=== PATIENT | female | born 1940 | race Caucasian/White ===

== ENCOUNTER 2021-06-06 09:21 | Emergency (ER) | payer OTHER, SELFPAY ==
[2021-06-06 09:32] VITALS: BP 180/64; PULSE 72; RESP 18; TEMP 36.1; O2SAT 97
--- NOTE | 2021-06-06 09:53 | ED.GENADULT ---
HPI - General Adult General Stated complaint: Left side Pain Source: patient Mode of arrival: ambulatory Limitations: no limitations History of Present Illness HPI narrative: Patient is an 81-year-old female presents to the [facility] via POV for evaluation of right-sided pain that began yesterday upon awakening. Patient reports feeling in intermittent achy pain in her right arm, right hip, right thigh, and right knee. Denies taking OTC meds for symptoms. Nothing improves or worsen symptoms. Related Data Allergies Allergy/AdvReac Type Severity Reaction Status Date / Time Penicillins Allergy Unknown RED RASH Unverified 06/06/21 09:58 Review of Systems Review of Systems: Pertinent negatives: Injury, fever, chills, sweats, change in appetite, poor p.o. intake, malaise, calf tenderness, skin color changes, rash, warmth, swelling, numbness, tingling, loss of sensation, deformity, decreased range of motion, weakness, difficulty with ambulation/coordination, nausea, vomiting, lymphadenopathy, shortness of breath, chest pain, heart palpitations, and heart murmur. [facility] Past Medical History Medical History (Updated 06/06/21 @ 10:02 by Aniya Coleman, ROTARY DRYER OPERATOR, ) Hypertension Comments I have reviewed and agree with the patient's past medical, surgical, social, and family hx as documented by the RN. There is no relevant family history pertinent to the presenting complaint. Exam Narrative: GENERAL: Well-appearing, well-nourished, and in no acute distress. HEAD: Normocephalic, atraumatic. NECK: Supple. No Lymphadenopathy or nuchal rigidity appreciated. CHEST: Bilateral lung ulrich are clear to auscultation. No respiratory distress. No evidence of cough or pleuritic cp upon examination. HEART: Regular rate and rhythm. No murmur, gallop, or rub heard. EXTREMITIES: Mild pain elicited to palpation and with all active/past ROM of right hip, lateral aspect of right thigh, and lateral aspect of right knee. No evidence of injury, decreased ROM, swelling, cyanosis, hematoma, laceration, abrasion, deformity, rash, or puncture. No evidence of dislocation, ligament laxity, effusion, or pain at rest. Pulses palpable at 2+, strength 5/5, and cap refill < 3 seconds in affected extremity. DTRs normal. Gait normal. SKIN: Warm, dry, no rash. NEURO: No focal deficits. Alert and oriented x3. SPECIAL OBSERVATIONS: Smiling. Laughing. Course Vital Signs Vital signs: Vital Signs Temperature 96.9 F L 06/06/21 09:32 Pulse Rate 72 06/06/21 09:32 Respiratory Rate 18 06/06/21 09:32 Blood Pressure 180/64 H 06/06/21 09:32 Pulse Oximetry 97 06/06/21 09:32 Temperature 96.9 F L 06/06/21 09:32 Pulse Rate 72 06/06/21 09:32 Respiratory Rate 18 06/06/21 09:32 Blood Pressure 180/64 H 06/06/21 09:32 Pulse Oximetry 97 06/06/21 09:32 Due to an elevated blood pressure, I had a detailed discussion with the patient and/or guardian regarding the need for follow-up with their primary care provider within the next 3-4 days. Patient verbalized understanding and agreed. Medical Decision Making Differential Diagnosis Differential Diagnosis: Sprain, strain, cellulitis, open fracture, closed fracture, gout, osteoarthritis, RA, psoriatic arthritis Medical Records Medical records reviewed: Yes I reviewed the external patient's medical records. Vital Signs Vital Signs: Vital Signs Temperature 96.9 F L 06/06/21 09:32 Pulse Rate 72 06/06/21 09:32 Respiratory Rate 18 06/06/21 09:32 Blood Pressure 180/64 H 06/06/21 09:32 Pulse Oximetry 97 06/06/21 09:32 Temperature 96.9 F L 06/06/21 09:32 Pulse Rate 72 06/06/21 09:32 Respiratory Rate 18 06/06/21 09:32 Blood Pressure 180/64 H 06/06/21 09:32 Pulse Oximetry 97 06/06/21 09:32 Critical Care Time Critical Care Time Critical Care Time: No Discharge Plan Discharge Clinical Impression: Musculoskeletal pain Patient Disposition: Home, Self-Care Condit
== END 2021-06-06 10:05 | disposition home or self-care (01) ==
PROVIDERS: Emergency Provider Nurse Practitioner Family; PCP Internal Medicine
DX: M25.551 Pain in right hip (principal); M79.651 Pain in right thigh; M25.561 Pain in right knee; I10 Essential (primary) hypertension
CPT/HCPCS: 99211; G0463

== ENCOUNTER 2022-05-12 16:22 | Emergency (ER) | payer OTHER, SELFPAY ==
--- NOTE | ~2022-05-12 | CT_ITS ---
EXAMINATION: CT brain wo con INDICATION: Head injury COMPARISON: None TECHNIQUE: Standard unenhanced head CT. The dose-length product (DLP) was 605.33 mGy-cm. The mA was a djusted according to patient size. Iterative reconstruction technique was employed. FINDINGS: There is a moderate to large size left parieto-occipital scalp hematoma. There is no acute intraparenchymal hemorrhage. No evidence of mass lesion. No evidence of acute infarction. There is mi ld periventricular and subcortical hypodensity probably related to small vessel ischemic disease. The re is mild prominence of the sulci and ventricles related to cerebral atrophy. Intracranial calcified cerebral atherosclerosis is noted. There are no extra-axial collections. There is no mass effect or midline shift. The orbits and soft tissues are unremarkable. There is mild mucosal thickening of the paranasal sinuses. IMPRESSION: 1. Moderate to large sized left parietal occipital scalp hematoma without acute intracranial abnormal ity. 2. Age related findings. Reviewed, dictated and finalized at location A. IMPRESSION: 1. Moderate to large sized left parietal occipital scalp hematoma without acute intracranial abnormality. 2. Age related findings.
--- NOTE | ~2022-05-12 | XR_ITS ---
EXAMINATION: XR chest 2V DATE: 05/12/2022 17:22 INDICATION: Fall TECHNIQUE: PA and lateral views of the chest were obtained. COMPARISON: Chest radiograph dated 04/29/2007 FINDINGS: Mild elevation the left hemidiaphragm. Calcified nodules at the right lung base and calcified right h ilar lymph nodes consistent with old granulomatous disease. No other airspace opacities, pulmonary ed daniel, pleural effusion or pneumothorax. The cardiomediastinal silhouette is normal. Mild to moderate t horacic and moderate to severe lumbar spondylosis. IMPRESSION: 1. Mild elevation of the left hemidiaphragm. No acute cardiopulmonary disease. Reviewed, dictated and finalized at location A.
[2022-05-12 16:25] VITALS: BP 170/82; PULSE 90; RESP 33; O2SAT 96
--- NOTE | 2022-05-12 17:06 | ECG_ITS ---
Measurements Intervals [place] Rate: 74 P: 0 VA: 127 QRS: -5 QRSD: 89 T: 111 QT: 387 QTc: 430 Interpretive Statements SINUS RHYTHM FREQUENT ATRIAL PREMATURE COMPLEXES DELAYED PRECORDIAL R/S TRANSITION BORDERLINE ST-T WAVE ABNORMALITY- HIGH LATERAL LEADS BASELINE ARTIFACT- I, II, III, AVR, AVL ABNORMAL ECG NO PREVIOUS ECG AVAILABLE FOR COMPARISON Electronically Signed On 05-12-2022 21:51:30 CDT by Kishor Walker D.O.
--- NOTE | 2022-05-12 17:16 | ED.FALL ---
HPI - Fall General Chief Complaint: Fall Stated Complaint: fall Time Seen by Provider: 05/12/22 16:25 Source: patient, family and RN notes reviewed Mode of arrival: EMS Limitations: dementia History of Present Illness HPI Narrative: This is an 81 year old female who presents for evaluation of a head injury. Patient lives in a care facility . She is unsure why she fell. She states staff showed up right after her fall. She denies having dizziness, chest pain, palpitations or shortness of breath to cause her fall. Nursing staff thinks patient slipped her her slipped. She has posterior scalp laceration and her only complaint of pain at wound site. Related Data Home Medications Medication Instructions Recorded Confirmed dapagliflozin 10 mg tablet 10 mg PO DAILY 05/12/22 (Farxiga) furosemide 20 mg tablet (Lasix) 20 mg PO DAILY 05/12/22 glipizide 2.5 mg tablet, extended 2.5 mg PO DAILY 05/12/22 release 24 hr lisinopril 10 mg tablet 10 mg PO DAILY 05/12/22 losartan 50 mg tablet 50 mg PO DAILY 05/12/22 oxymetazoline 0.05 % nasal drops drp intranasal 05/12/22 sodium chloride 0.65 % nasal spray 3 spray intranasal ONCE PRN 05/12/22 aerosol (Deep Sea Nasal) Bleeding Allergies Allergy/AdvReac Type Severity Reaction Status Date / Time Penicillins Allergy Unknown RED RASH Verified 05/12/22 16:52 Review of Systems Review of Systems: All systems reviewed & are unremarkable except as noted in HPI and below Constitutional: Constitutional: Denies chills, Denies fatigue and Denies fever(s) ENT: Denies epistaxis and Denies nasal congestion Cardiovascular: Cardiovascular: Denies chest pain Respiratory: Respiratory: Denies chest congestion and Denies cough Gastrointestinal: Gastrointestinal: Denies abdominal pain, Denies nausea and Denies vomiting Neurologic: Reports headache(s) PMFSH Past Medical History Medical History (Updated 05/12/22 @ 18:49 by Taylor Peña MD) Hypertension Exam Const: General: no acute distress and alert Nutritional Appearance: well nourished Orientation/consciousness: patient oriented x3 HENMT: Head: laceration (left posterior scalp linear 2 cm) Ears: external ears normal Face and sinus: normal facial exam Teeth and gingiva: dentition normal Throat: posterior oropharynx normal Eyes: Pupils: Equal, round and reactive pupils present EOM: EOMs intact bilaterally Neck: Neck: normal visual inspection Chest: Chest palpation & inspection: normal inspection of the chest Resp: Effort & Inspection: normal respiratory effort Auscultation: clear to auscultation bilaterally Cardio: Rate: regular rate Rhythm: regular rhythm Heart sounds: no murmurs GI: GI Palp: Yes Soft to palpation, No Tenderness to palpation present (GI), No Guarding due to palpation present (GI) and No Rigid due to palpation Auscultation: normal bowel sounds Skin: General skin exam: normal color Rashes: no rashes Wounds: wounds noted (scalp laceration) Neuro: General: patient oriented x3, moves all extremities and CN's II-XI intact bilaterally Extrem: General: normal to inspection Psych: Mental Status: mental status grossly normal Affect: normal affect Attitude: cooperative Course Reevaluation(s) Reevaluation #1: Patient has no complaints. I repaired her scalp laceration. Family is at bedside. Date: 05/12/22 Time: 18:47 Vital Signs Vital signs: Vital Signs Pulse Rate 90 05/12/22 16:25 Respiratory Rate 33 H 05/12/22 16:25 Blood Pressure 170/82 H 05/12/22 16:25 Pulse Oximetry 96 05/12/22 16:25 Oxygen Delivery Room Air 05/12/22 16:25 Pulse Rate 85 05/12/22 19:20 Respiratory Rate 16 05/12/22 19:20 Blood Pressure 106/57 L 05/12/22 19:20 Pulse Oximetry 96 05/12/22 19:20 Oxygen Delivery Room Air 05/12/22 16:25 Procedures Laceration Laceration 1: Date: 05/12/22 Time: 18:47 Site: scalp Size (cm): 3 Description: line
[2022-05-12 17:48] LABS: Basophils Absolute Auto 0.1 K/mm3 (0.0-0.1); Basophils Percent Auto 0.6 % (0.2-1.2); Eosinophils Absolute Auto 0.2 K/mm3 (0-0.3); Hematocrit 45.3 % (37.0-47.0); Hemoglobin 14.8 g/dL (12.0-15.0); Immature Granulocyte Absolute 0.03 K/mm3 (0.00-0.031); Immature Granulocyte Percent A 0.4 % (0-0.5); Lymphocytes Absolute Auto 1.57 K/mm3 (0.9-3.2); Lymphocytes Percent Auto 18.6 % (18.3-44.2); Mean Corpuscular HGB Conc 32.7 g/dl (32-36); Mean Corpuscular Hemoglobin 32.7 pg (26-34); Mean Platelet Volume 10.2 fl (7.4-10.4); Monocytes Absolute Auto 0.9 K/mm3 (0.1-0.6); Monocytes Percent Auto 10.3 % (2.6-8.5); Neutrophils Absolute Auto 5.8 K/mm3 (1.3-6.7); Neutrophils Percent Auto 68.1 % (45.5-73.1); Platelet Count Result 269 k/mm3 (150-375); Red Blood Count 4.53 M/mm3 (4.2-5.4); Red Cell Distribution Width 12.4 % (11.5-14.5); White Blood Count 8.5 K/mm3 (4.5-10.0)
[2022-05-12 17:58] LABS: Alanine Aminotransferase 48 U/L (6-35); Albumin Level 4.3 g/dL (3.5-5.1); Alkaline Phosphatase 141 U/L (38-126); Anion Gap 11 mmol/L (8-16); Aspartate Amino Transferase 50 U/L (14-36); Bilirubin,Total 0.6 mg/dL (0.2-1.3); Blood Urea Nitrogen 15 mg/dL (7-17); Calcium 9.6 mg/dL (8.4-10.2); Carbon Dioxide 28 mmol/L (22-30); Chloride 96 mmol/L (98-107); Estimated CRCL calculation 51 ml/min; Estimated Glomerular Filt Rate > 60; Glucose 371 mg/dL (65-110); Sodium 135 mmol/L (137-145)
[2022-05-12] MEDS: LIDO 2%/EPINEPHRINE 1:100,000 20 ML VIAL (19:02)
[2022-05-12 19:20] VITALS: BP 106/57; PULSE 85; RESP 16; O2SAT 96
== END 2022-05-12 19:25 ==
PROVIDERS: Emergency Provider General Practice; PCP Internal Medicine
DX: S01.01XA Laceration without foreign body of scalp, initial encounter (principal); I10 Essential (primary) hypertension; E11.9 Type 2 diabetes mellitus without complications; Z79.84 Long term (current) use of oral hypoglycemic drugs; I49.1 Atrial premature depolarization; R94.31 Abnormal electrocardiogram [ECG] [EKG]; W01.0XXA Fall on same level from slipping, tripping and stumbling without subsequent striking against object, initial encounter
CPT/HCPCS: 12002; 36415; 70450; 71046; 80053; 85025; 93005; 99284

== ENCOUNTER 2023-09-09 11:15 | Emergency (ER) | payer OTHER, SELFPAY ==
[2023-09-09] VITALS (7 sets, daily range): BP systolic 109–119; BP diastolic 42–84; PULSE 61–80; RESP 18; TEMP 36.4; O2SAT 98–100
--- NOTE | ~2023-09-09 | CT_ITS ---
EXAMINATION: CT brain wo con DATE: 09/09/2023 11:57 INDICATION: Head injury. TECHNIQUE: Computed tomography (CT) of the head was performed without intravenous contrast. The dose- length product was 756.67 mGy-cm. Automated exposure control and iterative reconstruction technique w ere employed. COMPARISON: CT dated 05/12/2022 FINDINGS: Mild generalized atrophy. There are scattered mild periventricular and subcortical white ma tter changes, most likely related to small vessel ischemic disease (microangiopathy). There is intrac ranial atherosclerosis. No ventriculomegaly or midline shift. Basilar cisterns are patent. Paranasal sinuses and mastoids are pneumatized. There is mild right posterior parietal scalp hematoma. IMPRESSION: 1. No acute intracranial abnormality. Reviewed, dictated and finalized at location L. F NUCLEAR WEAPONS OFFICER
--- NOTE | 2023-09-09 11:21 | ECG_ITS ---
Measurements Intervals [place] Rate: 67 P: 9 ID: [id number] QRS: 55 QRSD: 97 T: -25 QT: 372 QTc: 393 Interpretive Statements SINUS RHYTHM WITH SINUS ARRHYTHMIA ST-T WAVE ABNORMALITY IN INFERIOR LEADS- CONSIDER ISCHEMIA BASELINE ARTIFACT- I, II, III, AVR, AVL, AVF ABNORMAL ECG COMPARED TO ECG 05/12/2022 17:36:[address] PRES[address] (T WAVE) DEVIATION NOW PRESENT Electronically Signed On 09-09-2023 11:36:10 CONSUMER BANKER by Kishor Walker D.O.
[2023-09-09 12:10] LABS: Glucose Point of Care 140 mg/dl (65-105)
[2023-09-09 12:25] LABS: Appearance Urine Clear (Clear); Bilirubin Urine Negative (Negative); Blood Urine Negative (Negative); Color Urine Yellow (Yellow); Glucose Urine UA 3+ mg/dL (Negative); Ketones Urine Negative (Negative); Leukocyte Esterase Ur Negative LEU/UL (Negative); Nitrate Urine Negative (Negative); Protein Urine Negative (Negative); Specific Grav Ur 1.022 (1.001-1.035); Urobilinogen Urine 0.2 mg/dL (<2.0)
[2023-09-09 12:26] LABS: Add Urine Microscopic? NO
[2023-09-09 12:38] LABS: Basophils Absolute Auto 0.1 K/mm3 (0.0-0.1); Basophils Percent Auto 0.5 % (0.2-1.2); Eosinophils Absolute Auto 0.3 K/mm3 (0-0.3); Eosinophils Percent Auto 2.8 % (0-4.4); Hematocrit 33.5 % (37.0-47.0); Immature Granulocyte Absolute 0.03 K/mm3 (0.00-0.031); Immature Granulocyte Percent A 0.3 % (0-0.5); Lymphocytes Absolute Auto 1.44 K/mm3 (0.9-3.2); Lymphocytes Percent Auto 13.8 % (18.3-44.2); Mean Corpuscular HGB Conc 29.9 g/dl (32-36); Mean Corpuscular Hemoglobin 30.6 pg (26-34); Mean Corpuscular Volume 102.4 fl (80-100); Mean Platelet Volume 9.2 fl (7.4-10.4); Monocytes Percent Auto 9.1 % (2.6-8.5); Neutrophils Absolute Auto 7.7 K/mm3 (1.3-6.7); Neutrophils Percent Auto 73.5 % (45.5-73.1); Platelet Count Result 378 k/mm3 (150-375); Red Blood Count 3.27 M/mm3 (4.2-5.4); Red Cell Distribution Width 14.5 % (11.5-14.5); White Blood Count 10.4 K/mm3 (4.5-10.0)
[2023-09-09 12:56] LABS: Alanine Aminotransferase 20 U/L (6-35); Albumin Level 3.9 g/dL (3.5-5.1); Alkaline Phosphatase 98 U/L (38-126); Anion Gap 8 mmol/L (8-16); Aspartate Amino Transferase 29 U/L (14-36); Bilirubin,Total 0.5 mg/dL (0.2-1.3); Blood Urea Nitrogen 18 mg/dL (7-17); Calcium 9.1 mg/dL (8.4-10.2); Carbon Dioxide 26 mmol/L (22-30); Chloride 105 mmol/L (98-107); Estimated Glomerular Filt Rate > 60; Glucose 129 mg/dL (65-110); Potassium 4.4 mmol/L (3.4-5.0); Sodium 139 mmol/L (137-145)
[2023-09-09 13:10] LABS: Platelet Estimate Adequate (Adequate); Schistocytes None Seen (NORMAL)
--- NOTE | 2023-09-09 13:32 | ED.FALL ---
HPI - Fall General Chief Complaint: Fall Stated Complaint: glf Time Seen by Provider: 09/09/23 11:18 Patient is an 83-year-old female who presents ER with multiple falls over last few days. Last fall was today and she did hit her head on left side posterior to the ear. She is unsure if she has had loss of consciousness. She is not on any blood thinners. She does take Lasix. She denies feeling any dizziness. No runny nose or sore throat or productive cough. No diarrhea or black stools. She denies any urinary symptoms. Patient is a post walk with a walker. Falls typically occur at night. She has neuropathy in her legs which has worsened makes her more unsteady. Related Data Home Medications Medication Instructions Recorded Confirmed dapagliflozin propanediol 10 mg 10 mg PO DAILY 05/12/22 tablet (Farxiga) furosemide 20 mg tablet (Lasix) 20 mg PO DAILY 05/12/22 glipizide 2.5 mg tablet, extended 2.5 mg PO DAILY 05/12/22 release 24 hr lisinopril 10 mg tablet 10 mg PO DAILY 05/12/22 losartan 50 mg tablet 50 mg PO DAILY 05/12/22 oxymetazoline 0.05 % nasal drops drp intranasal 05/12/22 sodium chloride 0.65 % nasal spray 3 spray intranasal ONCE PRN 05/12/22 aerosol (Deep Sea Nasal) Bleeding Allergies Allergy/AdvReac Type Severity Reaction Status Date / Time Penicillins Allergy Unknown RED RASH Verified 05/12/22 16:52 Review of Systems Review of Systems: All systems reviewed & are unremarkable except as noted in HPI and below Constitutional: Constitutional: Reports no additional constitutional complaints ENT: Reports system reviewed and no additional complaints, except as documented Cardiovascular: Cardiovascular: Reports no additional cardiovascular complaints Respiratory: Respiratory: Reports no additional respiratory complaints Genitourinary: Genitourinary: Reports no additional female genitourinary complaints Neurologic: Reports system reviewed and no additional complaints, except as documented PMFSH Past Medical History Medical History (Updated 09/09/23 @ 14:55 by Ja Lazaro MD) Hypertension Peripheral neuropathy Surgical History Surgical History (Updated 09/09/23 @ 13:37 by Ja Lazaro MD) History of tonsillectomy Exam Narrative: GENERAL: Well-appearing, well-nourished, and in no acute distress. HEAD: Normocephalic, atraumatic. mild bruising left posterior scalp posterior to the mastoid. ENT: Mucous membranes moist. CHEST: Clear to auscultation. No respiratory distress. HEART: Regular rate and rhythm. Normal peripheral pulses. ABDOMEN: Soft, nontender, nondistended. EXTREMITIES: Normal range of motion. +2 edema. SKIN: Warm, dry, no rash. NEURO: Alert and oriented x3. PSYCH: Normal mood and affect. Course Course Emergency Course: negative orthostatics but patient did report dizziness. Patient received half a L IV fluid. Informed of results. Discharge home. Vital Signs Vital signs: Vital Signs Temperature 97.6 F 09/09/23 11:18 Pulse Rate 70 09/09/23 11:18 Respiratory Rate 18 09/09/23 11:18 Blood Pressure 119/57 L 09/09/23 11:18 Pulse Oximetry 98 09/09/23 11:18 Oxygen Delivery Room Air 09/09/23 11:18 Temperature 97.6 F 09/09/23 11:18 Pulse Rate 80 09/09/23 15:14 Respiratory Rate 18 09/09/23 15:14 Blood Pressure 109/84 09/09/23 15:14 Pulse Oximetry 100 09/09/23 15:14 Oxygen Delivery Room Air 09/09/23 11:18 MDM - Fall Lab Data 09/09/23 12:33 09/09/23 12:33 Labs: Lab Results 09/09/23 09/09/23 09/09/23 Range/Units 12:07 12:12 12:33 WBC 10.4 H (4.5-10.0) K/mm3 RBC 3.27 L (4.2-5.4) M/mm3 Hgb 10.0 L D (12.0-15.0) g/dL Hct 33.5 L (37.0-47.0) % MCV 102.4 H (80-100) fl MCH 30.6 (26-34) pg MCHC 29.9 L (32-36) g/dl RDW 14.5 (11.5-14.5) % Plt Count 378 H (150-375) k/mm3 MPV 9.2 (7.4-10.4) fl Immature Gran % (Aut
[2023-09-09] MEDS: SODIUM CHLORIDE 0.9% IV 500 ML 999 ML IV CONT (14:07)
== END 2023-09-09 15:20 ==
PROVIDERS: Emergency Provider Emergency Medicine; PCP Internal Medicine
DX: S09.90XA Unspecified injury of head, initial encounter (principal); R29.6 Repeated falls; E11.42 Type 2 diabetes mellitus with diabetic polyneuropathy; I10 Essential (primary) hypertension; Z79.84 Long term (current) use of oral hypoglycemic drugs; R94.31 Abnormal electrocardiogram [ECG] [EKG]; W19.XXXA Unspecified fall, initial encounter
CPT/HCPCS: 36415; 70450; 80053; 81003; 82948; 85025; 93005; 96360; 99284; J7040

== ENCOUNTER 2023-10-08 20:32 | Observation (INO) | payer OTHER, SELFPAY ==
--- NOTE | ~2023-10-08 | XR_ITS ---
EXAMINATION: XR pelvis 1-2V DATE: 10/08/2023 21:20 INDICATION: Fall. TECHNIQUE: An anteroposterior view of the pelvis was obtained. COMPARISON: None. FINDINGS: There is lumbar dextrocurvature and moderate spondylosis. No fracture. There is moderate ri ght hip osteoarthritis and mild left hip osteoarthritis. IMPRESSION: 1. Moderate right hip osteoarthritis and mild left hip osteoarthritis. Reviewed, dictated and finalized at location E. GER MATH
--- NOTE | ~2023-10-08 | CT_ITS ---
EXAMINATION: CT brain wo con DATE: 10/08/2023 21:12 INDICATION: Fall. TECHNIQUE: Computed tomography (CT) of the head was performed without intravenous contrast. The mA wa s adjusted according to patient size. Iterative reconstruction technique was employed. The dose-lengt h product was 756.67 mGy-cm. COMPARISON: Head CT 09/09/2023 FINDINGS: There are scattered areas of low attenuation in the cerebral white matter, which is within normal limits for the patient's age. There is no intracranial hemorrhage, acute infarction, or abnorm al intracranial mass lesion. The ventricles are normal in size. There is mild mucosal thickening in t he paranasal sinuses. There are likely changes of ocular lens replacement surgeries. The mastoid air cells are normal. There is left anterolateral scalp soft tissue swelling. IMPRESSION: 1. Normal aging brain. Reviewed, dictated and finalized at location E. TABLE INSPECTOR IMPRESSION: 1. Normal aging brain.
--- NOTE | ~2023-10-08 | CT_ITS ---
EXAMINATION: CT facial & cervical spine wo DATE: 10/08/2023 21:12 INDICATION: Head injury. TECHNIQUE: Computed tomography (CT) of the maxillofacial region and cervical spine was performed with out intravenous contrast. Automated exposure control and iterative reconstruction technique were empl oyed. The dose-length product was 577.93 mGy-cm. COMPARISON: None FINDINGS: MAXILLOFACIAL CT: There is left frontal lateral scalp soft tissue swelling. There are likely changes of ocular lens rep lacement surgeries. There is mild mucosal thickening in the paranasal sinuses. There is leftward karmen ation of the nasal septum. No fracture. CERVICAL SPINE CT: There is 5 degrees dextrocurvature of cervical spine. There is 2 mm anterolisthesis of C7 on T1. Vert ebral body heights are normal. There is severely decreased disc height at C5-C6 and C6-C7. The follow ing disc levels are specifically discussed: C2-C3: There is no uncovertebral joint osteoarthritis. There is moderate bilateral facet joint osteoa rthritis. There is no neural foraminal stenosis. There is no central canal stenosis. C3-C4: There is moderate right and mild left uncovertebral joint osteoarthritis. There is severe bila teral facet joint osteoarthritis. There is mild bilateral neural foraminal stenosis. There is no cent ral canal stenosis. C4-C5: There is mild bilateral uncovertebral joint osteoarthritis. There is mild right and moderate l eft facet joint osteoarthritis. There is no neural foraminal stenosis. There is mild central canal st enosis. C5-C6: There is moderate right and severe left uncovertebral joint osteoarthritis. There is mild righ t and moderate left facet joint osteoarthritis. There is mild right and moderate left neural foramina l stenosis. There is mild central canal stenosis. C6-C7: There is severe bilateral uncovertebral joint osteoarthritis. There is moderate right and radha re left facet joint osteoarthritis. There is moderate right and mild left neural foraminal stenosis. There is mild central canal stenosis. C7-T1: There is no uncovertebral joint osteoarthritis. There is severe bilateral facet joint osteoart hritis. There is mild bilateral neural foraminal stenosis. There is no central canal stenosis. IMPRESSION: 1. No fracture. 2. Severe cervical spondylosis. Reviewed, dictated and finalized at location E. CTOR OF WORKFORCE DEVELOPMENT
--- NOTE | ~2023-10-08 | XR_ITS ---
EXAMINATION: XR chest 1V DATE: 10/08/2023 21:20 INDICATION: Fall. TECHNIQUE: A single frontal view of the chest was obtained. COMPARISON: Chest 2 views 05/12/2022 FINDINGS: There is a diffuse interstitial pattern, consistent mild pulmonary edema. Calcified right l zuly nodules and calcified right hilar lymph nodes are consistent with old granulomatous disease. No p leural effusion or pneumothorax. The heart size is normal. IMPRESSION: 1. Mild pulmonary edema. Reviewed, dictated and finalized at location E. CAR REPAIR CARMAN IMPRESSION: 1. Mild pulmonary edema.
[2023-10-08 20:32] VITALS: BP 139/72; PULSE 75; RESP 23; O2SAT 97
--- NOTE | 2023-10-08 20:39 | ECG_ITS ---
Measurements Intervals [place] Rate: 66 P: 46 SC: 147 QRS: 15 QRSD: 92 T: 102 QT: 417 QTc: 438 Interpretive Statements SINUS RHYTHM WITH OCCASIONAL VENTRICULAR PREMATURE COMPLEXES NONSPECIFIC ST ABNORMALITY BORDERLINE ECG COMPARED TO ECG 09/09/2023 11:33:25 NO SIGNIFICANT CHANGES Electronically Signed On 10-09-2023 14:38:33 STEEL MELTER by Davy Storey M.D.
[2023-10-08] MEDS: ACETAMINOPHEN 500 MG TABLET 1000 MG PO (21:52)
[2023-10-08 22:01] LABS: Glucose Point of Care 135 mg/dl (65-105)
[2023-10-08 22:12] LABS: Basophils Percent Auto 0.2 % (0.2-1.2); Eosinophils Absolute Auto 0.1 K/mm3 (0-0.3); Eosinophils Percent Auto 0.7 % (0-4.4); Hematocrit 35.2 % (37.0-47.0); Hemoglobin 10.6 g/dL (12.0-15.0); Immature Granulocyte Absolute 0.04 K/mm3 (0.00-0.031); Immature Granulocyte Percent A 0.3 % (0-0.5); Lymphocytes Absolute Auto 0.93 K/mm3 (0.9-3.2); Lymphocytes Percent Auto 7.1 % (18.3-44.2); Mean Corpuscular HGB Conc 30.1 g/dl (32-36); Mean Corpuscular Hemoglobin 28.6 pg (26-34); Mean Corpuscular Volume 95.1 fl (80-100); Mean Platelet Volume 9.4 fl (7.4-10.4); Monocytes Absolute Auto 1.4 K/mm3 (0.1-0.6); Monocytes Percent Auto 10.6 % (2.6-8.5); Neutrophils Absolute Auto 10.6 K/mm3 (1.3-6.7); Neutrophils Percent Auto 81.1 % (45.5-73.1); Platelet Count Result 385 k/mm3 (150-375); Red Cell Distribution Width 14.8 % (11.5-14.5); White Blood Count 13.1 K/mm3 (4.5-10.0)
[2023-10-08 22:18] LABS: Appearance Urine Clear (Clear); Bilirubin Urine Negative (Negative); Blood Urine Negative (Negative); Color Urine Yellow (Yellow); Glucose Urine UA 3+ mg/dL (Negative); INR 1.1; Ketones Urine Negative (Negative); Leukocyte Esterase Ur Negative LEU/UL (Negative); Nitrate Urine Negative (Negative); Protein Urine Negative (Negative); Urobilinogen Urine 0.2 mg/dL (<2.0); pH Urine 5.5 (5.0-9.0)
[2023-10-08 22:19] LABS: Partial Thromboplastin Time 34.5 SECONDS (22.3-36.8)
[2023-10-08 22:20] LABS: Alanine Aminotransferase 21 U/L (6-35); Albumin Level 3.9 g/dL (3.5-5.1); Alkaline Phosphatase 112 U/L (38-126); Anion Gap 6 mmol/L (8-16); Aspartate Amino Transferase 31 U/L (14-36); Bilirubin,Total 0.8 mg/dL (0.2-1.3); Blood Urea Nitrogen 21 mg/dL (7-17); Calcium 9.4 mg/dL (8.4-10.2); Carbon Dioxide 27 mmol/L (22-30); Chloride 106 mmol/L (98-107); Estimated CRCL calculation 50 ml/min; Estimated Glomerular Filt Rate > 60; Glucose 126 mg/dL (65-110); Lipase 175 U/L (23-300); Magnesium 2.5 mg/dL (1.6-2.3); Potassium 4.2 mmol/L (3.4-5.0); Sodium 139 mmol/L (137-145)
[2023-10-08 22:21] VITALS: BP 134/61; PULSE 72; RESP 22; O2SAT 96
[2023-10-08] MEDS: FUROSEMIDE INJ 40 MG/4 ML VIAL IV PUSH (22:21)
[2023-10-08 22:27] LABS: NT Pro B Type Natriuretic Pept 444 pg/mL (19.9-100)
[2023-10-08 22:48] LABS: Influenza A QL RT-PCR Negative (Negative); Influenza B QL RT-PCR Negative (Negative); RSV RNA, RT-PCR Negative (Negative); SARS-CoV-2 RNA PCR Negative (Negative)
[2023-10-08 23:04] LABS: Add Urine Microscopic? NO
[2023-10-08 23:23] VITALS: PULSE 65; RESP 25
[2023-10-08 23:30] VITALS: BP 125/36; PULSE 68; RESP 24; O2SAT 98
[2023-10-08 23:36] VITALS: PULSE 63
[2023-10-09] VITALS (8 sets, daily range): BP systolic 84–137; BP diastolic 51–115; PULSE 54–77; RESP 16–24; TEMP 36.3–37; O2SAT 97–98; BMI 43.4
--- NOTE | 2023-10-09 | ECHO_ITS ---
Patient Info Name: Akosua Rocha Age: 83 years : 1940 Gender: Female Ht: 60 in Wt: 222 lbs BSA: 2.13 m2 HR: 82 bpm BP: 135 / 82 mmHg Heart Rhythm: Sinus Rhythm Technical Quality: Fair Exam Date: 10/09/2023 1:03 PM Exam Location: Echo Lab Exam Room: 342 Patient Status: Inpatient Admit Date: 10/09/2023 Staff Ordering Physician: Jana Alfonso APRN Wafer Fabrication Technician: Marisol Birmingham RDCS Attending Provider: Justine Carlisle MD Referring Physician: Kaden SUMMERS; Exam Type: CA echo dop color flow w con Study Info Indications - weakness s/p fall edema Complete two-dimensional, color flow and Doppler transthoracic echocardiogram is performed with contrast to opacify the left ventricle and to improve the deliniation of the left ventricle endocardial borders. Contrast/Agitated Saline Contrast/Ag. Saline: Definity Amount: 2.00 ml Administered By: Marisol Birmingham [facility] Existing IV Access: Yes IV Access Condition: patent with no signs of infiltration Summary 1. Left ventricular chamber dimension is normal. 2. Left ventricular systolic function is normal, estimated at 65-70%. 3. There is mildly increased left ventricular wall thickness. 4. The left ventricular diastolic function is grade I diastolic dysfunction. 5. Left atrial chamber dimension is mildly enlarged. 6. There is no aortic valve stenosis. 7. There is mild mitral valve regurgitation. 8. There is mild tricuspid valve regurgitation. 9. Moderate pulmonary hypertension, estimated pulmonary arterial systolic pressure is 46 mmHg. Left Ventricle Left ventricular chamber dimension is normal. Left ventricular systolic function is normal, estimated at 65-70%. There is mildly increased left ventricular wall thickness. The left ventricular diastolic function is grade I diastolic dysfunction. Right Ventricle Right ventricular chamber dimension is normal. Right ventricular systolic function is normal. Left Atria Left atrial chamber dimension is mildly enlarged. Right Atria Right atrial chamber dimension is normal. Aortic Valve The aortic valve is trileaflet. There is mild aortic valve sclerosis. There is no aortic valve stenosis. There is no aortic valve regurgitation. Pulmonic Valve The pulmonic valve is not well visualized. There is trace pulmonic regurgitation. Mitral Valve The mitral valve has thickened leaflets. There is mild mitral valve regurgitation. The mitral valve annulus is severely calcified. Tricuspid Valve The tricuspid valve leaflets are normal. There is mild tricuspid valve regurgitation. Moderate pulmonary hypertension, estimated pulmonary arterial systolic pressure is 46 mmHg. Pericardium/Pleural The pericardium appears normal. There is trivial pericardial effusion. Inferior Vena Cava Normal inferior vena cava with >50% collapse upon inspiration consistent with normal right atrial pressure, 5 mmHg. Aorta The aortic root size at the sinus of Valsalva is normal. There is mild aortic atherosclerosis. Left Ventricular Outflow Tract Name Value Normal LVOT 2D LVOT Diameter 1.98 cm LVOT Doppler LVOT Peak Gradient 6 mmHg L
--- NOTE | 2023-10-09 00:15 | ED.GENADULT ---
HPI - General Adult General Chief complaint: Fall Stated complaint: fall Time Seen by Provider: 10/08/23 20:48 History of Present Illness HPI narrative: Is an 83-year-old female presenting patient says that she out bed and landed on her face. No loss of consciousness. No is 1 thinners. Patient was too weak to get up. At this time the patient has no complaints outside of a skin tear on the right arm. The patient's daughter is at bedisde and states the patient is far weaker than usual. She is unable to walk without assistance. Also noted she is very swollen had increased weight gain. No history of heart failure. She is on Lasix Related Data Home Medications Medication Instructions Recorded Confirmed dapagliflozin propanediol 10 mg 10 mg PO DAILY 05/12/22 tablet (Farxiga) furosemide 20 mg tablet (Lasix) 20 mg PO DAILY 05/12/22 glipizide 2.5 mg tablet, extended 2.5 mg PO DAILY 05/12/22 release 24 hr lisinopril 10 mg tablet 10 mg PO DAILY 05/12/22 losartan 50 mg tablet 50 mg PO DAILY 05/12/22 oxymetazoline 0.05 % nasal drops drp intranasal 05/12/22 sodium chloride 0.65 % nasal spray 3 spray intranasal ONCE PRN 05/12/22 aerosol (Deep Sea Nasal) Bleeding Allergies Allergy/AdvReac Type Severity Reaction Status Date / Time Penicillins Allergy Unknown RED RASH Verified 10/08/23 20:39 [facility] Past Medical History Medical History Hypertension Peripheral neuropathy Surgical History Surgical History History of tonsillectomy Exam Narrative: APPEARANCE: No apparent distress. Head: atraumatic. EYES: EOMI, NOSE: Atraumatic NECK: Trachea midline RESPIRATORY: No increased rate of breathing, clear to auscultation CARDIOVASCULAR: RRR, lipodermatosclerosis With pitting edema proximal ABDOMINAL: obese, soft nontender edematous in panniculus MUSCULOSKELETAl: No obvious deformities NEURO: Alert. Moving 4/4 extremities SKIN:: Warm, dry. Normal color PSYCHIATRIC: Normal affect Course Vital Signs Vital signs: Vital Signs Pulse Rate 75 10/08/23 20:32 Respiratory Rate 23 H 10/08/23 20:32 Blood Pressure 139/72 10/08/23 20:32 Pulse Oximetry 97 10/08/23 20:32 Oxygen Delivery Room Air 10/08/23 20:32 Pulse Rate 63 10/08/23 23:36 Respiratory Rate 24 H 10/08/23 23:30 Blood Pressure 125/36 L 10/08/23 23:30 Pulse Oximetry 98 10/08/23 23:30 Oxygen Delivery Room Air 10/08/23 20:32 Medical Decision Making MDM Narrative Medical decision making narrative: -Course: 83-year-old female with a fall and weakness. Trauma workup was negative including CT head C-spine chest and pelvis. infectious workup was unremarkable. The patient does have edema of her legs hips and abdomen. Additionally she is unable ambulate weak at this time. Patient be admitted the hospital for PT/OT treat and eval and diuresis. -DDX includes but is not limited to: Sepsis UTI dehydration CHF fluid overload anasarca traumatic injury -Co-morbidities complicating care: hypertension, diabetes, fluid retention -Social determinants of health: lives in the assisted living -Hx from independent Sources: daughter bedside -Independent interpretation of studies: white count 13.1. Hemoglobin 10.6 metabolic panel normal. BNP normal. urine not indicative infection. Viral swabs negative chest pelvis and CT head cervical facial negative for traumatic injuries. Independent EKG interpretation: Rhythm [sinus], Rate [66], [place] -[normal], [place] -[normal], QRS [narrow], QTC [normal], T waves -[negative for concerning inversions], ST Segments - [Negative for concerning elevations] Final interpretations: [Normal Sinus Rhythm] -Discussion of Management/Consultants: Dr. Carlisle, -hospitalist -Interventions: Lasix 40 mg IV -Shared decision making / Disposition:Observation Vital Signs Vital Signs: Vital Signs
--- NOTE | 2023-10-09 02:12 | ADMGEN ---
This patient, Akosua Rocha, was admitted to Medical Room 342-01. Patient/family oriented to hospital policies and general routines including ID bracelet, bed and alarms, visiting hours, pain management, procedures, bathroom and other care routines, personal items, smoking policy, room service/diet, and visiting hours. Information on how to activate the Rapid Response Team has been discussed. Patient/Family are encouraged to report perceived risks to care and to ask questions if they do not understand what they are told or what they should do.
[2023-10-09 06:10] LABS: Glucose Point of Care 102 mg/dl (65-105)
--- NOTE | 2023-10-09 08:12 | PM.IMHP ---
H&P: HPI History of Present Illness Date/Time: 10/09/23 08:12 Chief Complaint: Fall Narrative: This is an 83-year-old female with a significant past medical history of depression, hyperlipidemia, hypertension, type 2 diabetes mellitus, peripheral neuropathy who presented to the ED with chief complaint of fall. Patient states that she was getting up out of the bed fell and landed on her face. She also stated that she was too weak to get up. She states that she has had 3 falls in the past year. She has not had any recent illnesses and has progressively gotten weaker over the years. She currently uses a walker at home at baseline. She denies any fever, chills, nausea, vomiting, diarrhea, abdominal pain, chest pain, shortness a breath, lightheadedness, dizziness, numbness, or tingling. She does have a black eye on the left from the fall, skin tear to the left forearm, and a skin tear to the left mcdonald with serous drainage. Workup in the hospital includes CT brain without contrast which was normal. Head/cervical spine/facial bone CT was negative for fracture, showed severe cervical spondylosis. Chest x-ray shows mild pulmonary edema. Pelvis x-ray shows moderate right hip osteoarthritis and mild left hip osteoarthritis. EKG showing sinus rhythm with occasional PVCs, rate 66, QTC 438. Initial labs revealed white blood count of 13.1, hemoglobin 10.6, hematocrit 35.2, platelet count 385, INR 1.1, magnesium 2.5, proBNP 444. UA was obtained which showed 3+ glucose. Respiratory panel was obtained and was negative for influenza a and B, RSV, COVID. Patient was given 40 mg IV push Lasix and some Tylenol while in the ED. On examination today patient is alert oriented x3, lying in the bed. She denies any new complaints overnight. Labs revealed a white blood cell count of 11.7, RBC 3.81, hemoglobin 11.0, hematocrit 36.6, platelet count 381, hemoglobin A1c 6.2, magnesium 2.4, liver enzymes are normal, kidney function is normal. Echo ordered for today. We will also hold her p.o. Lasix and give her 40 mg IV push Lasix daily considering her edema. Review of Systems Review of Systems: All systems reviewed & are unremarkable except as noted in HPI and below Constitutional: Constitutional: Reports as per HPI and Reports no additional constitutional complaints Eyes: Eyes: Reports as per HPI and Reports no additional eye complaints ENT: Reports system reviewed and no additional complaints, except as documented and Reports as per HPI Cardiovascular: Cardiovascular: Reports as per HPI and Reports no additional cardiovascular complaints Respiratory: Respiratory: Reports as per HPI and Reports no additional respiratory complaints Gastrointestinal: Gastrointestinal: Reports as per HPI and Reports no additional gastrointestinal complaints Genitourinary: Genitourinary: Reports no additional female genitourinary complaints and Reports as per HPI Musculoskeletal: Musculoskeletal: Reports no additional musculoskeletal complaints and Reports as per HPI Integumentary/Breasts: Skin/Breast: Reports system reviewed and no additional complaints, except as docu and Reports as per HPI Neurologic: Reports system reviewed and no additional complaints, except as documented and Reports as per HPI Psychiatric: Psychiatric: Reports no additional psychiatric complaints and Reports as per HPI [facility] Past Medical History Medical History Depression Hyperlipidemia Hypertension Peripheral neuropathy Type 2 diabetes mellitus Surgical History Surgical History History of tonsillectomy Family History Family History Other Cardiovascular disease Social History Social History Smoking status: Never smoker Alcohol intake: never Substance use: never D
[2023-10-09 08:27] LABS: Glucose Point of Care 81 mg/dl (65-105)
[2023-10-09 09:29] LABS: Basophils Percent Auto 0.3 % (0.2-1.2); Eosinophils Absolute Auto 0.1 K/mm3 (0-0.3); Eosinophils Percent Auto 0.9 % (0-4.4); Hematocrit 36.6 % (37.0-47.0); Immature Granulocyte Absolute 0.05 K/mm3 (0.00-0.031); Immature Granulocyte Percent A 0.4 % (0-0.5); Lymphocytes Percent Auto 8.5 % (18.3-44.2); Mean Corpuscular HGB Conc 30.1 g/dl (32-36); Mean Corpuscular Hemoglobin 28.9 pg (26-34); Mean Corpuscular Volume 96.1 fl (80-100); Mean Platelet Volume 9.4 fl (7.4-10.4); Monocytes Absolute Auto 1.2 K/mm3 (0.1-0.6); Monocytes Percent Auto 10.4 % (2.6-8.5); Neutrophils Absolute Auto 9.3 K/mm3 (1.3-6.7); Neutrophils Percent Auto 79.5 % (45.5-73.1); Platelet Count Result 381 k/mm3 (150-375); Red Blood Count 3.81 M/mm3 (4.2-5.4); Red Cell Distribution Width 14.8 % (11.5-14.5); White Blood Count 11.7 K/mm3 (4.5-10.0)
[2023-10-09] MEDS: DOCUSATE SODIUM 100 MG CAPSULE PO ×2 (09:52→17:09)
[2023-10-09] MEDS: ATORVASTATIN 10 MG TABLET PO (09:52)
[2023-10-09] MEDS: glipiZIDE XL 2.5 MG TAB.ER.24 PO (09:52)
[2023-10-09] MEDS: FLUoxetine HCL 20 MG CAPSULE PO (09:52)
[2023-10-09] MEDS: PANTOPRAZOLE 40 MG TABLET PO (09:52)
[2023-10-09] MEDS: LOSARTAN POTASSIUM 50 MG TABLET PO (09:52)
[2023-10-09] MEDS: ENOXAPARIN 40 MG/0.4 ML SYRINGE SUB-Q (09:52)
[2023-10-09] MEDS: amLODIPine BESYLATE 5 MG TABLET 10 MG PO (09:52)
[2023-10-09] MEDS: FUROSEMIDE 20 MG TABLET PO (09:52)
[2023-10-09 10:02] LABS: Alanine Aminotransferase 20 U/L (6-35); Albumin Level 3.9 g/dL (3.5-5.1); Alkaline Phosphatase 99 U/L (38-126); Anion Gap 8 mmol/L (8-16); Aspartate Amino Transferase 30 U/L (14-36); Blood Urea Nitrogen 20 mg/dL (7-17); Calcium 9.3 mg/dL (8.4-10.2); Carbon Dioxide 24 mmol/L (22-30); Chloride 105 mmol/L (98-107); Estimated CRCL calculation 55 ml/min; Estimated Glomerular Filt Rate > 60; Glucose 87 mg/dL (65-110); Magnesium 2.4 mg/dL (1.6-2.3); Potassium 4.1 mmol/L (3.4-5.0); Sodium 137 mmol/L (137-145)
[2023-10-09 10:42] LABS: Hemoglobin A1C 6.2 % (<5.7)
[2023-10-09 12:46] LABS: Glucose Point of Care 187 mg/dl (65-105)
[2023-10-09] MEDS: PERFLUTREN LIPID MICROSPHERES 1.5 ML VIAL DILUTED TO 10 ML TOTAL VOLUME IV PUSH (13:20)
--- NOTE | 2023-10-09 13:38 | IVDEFINITY ---
Prior to administration of IV Definity the patient was educated on the risks and benefits of the imaging enhancing agent including potential adverse side effects. The patient verbalized understanding. Allergies were verified. No exclusion criteria were identified and at least one of the following inclusion criteria were met: 1) physician request, 2) patient technically difficult to image (per the [place] [employer] guidelines of two or more segments not discernable within the apical view), or 3) questionable left ventricular function. ?
[2023-10-09 17:29] LABS: Glucose Point of Care 137 mg/dl (65-105)
[2023-10-09 23:07] LABS: Glucose Point of Care 169 mg/dl (65-105)
[2023-10-09] MEDS: traMADol HCL (*CRX) 25 MG TABLET PO (23:24)
[2023-10-10 06:00] VITALS: BP 133/62; PULSE 108; RESP 18; TEMP 36.6; O2SAT 97
[2023-10-10 06:07] LABS: Basophils Percent Auto 0.4 % (0.2-1.2); Eosinophils Absolute Auto 0.2 K/mm3 (0-0.3); Eosinophils Percent Auto 2.2 % (0-4.4); Hematocrit 33.2 % (37.0-47.0); Hemoglobin 9.9 g/dL (12.0-15.0); Immature Granulocyte Absolute 0.02 K/mm3 (0.00-0.031); Immature Granulocyte Percent A 0.2 % (0-0.5); Lymphocytes Absolute Auto 1.19 K/mm3 (0.9-3.2); Lymphocytes Percent Auto 11.3 % (18.3-44.2); Mean Corpuscular HGB Conc 29.8 g/dl (32-36); Mean Corpuscular Hemoglobin 28.3 pg (26-34); Mean Corpuscular Volume 94.9 fl (80-100); Mean Platelet Volume 9.5 fl (7.4-10.4); Monocytes Absolute Auto 1.5 K/mm3 (0.1-0.6); Neutrophils Absolute Auto 7.6 K/mm3 (1.3-6.7); Neutrophils Percent Auto 71.9 % (45.5-73.1); Platelet Count Result 369 k/mm3 (150-375); White Blood Count 10.5 K/mm3 (4.5-10.0)
[2023-10-10 06:30] LABS: Alanine Aminotransferase 18 U/L (6-35); Albumin Level 3.5 g/dL (3.5-5.1); Alkaline Phosphatase 93 U/L (38-126); Anion Gap 5 mmol/L (8-16); Aspartate Amino Transferase 30 U/L (14-36); Bilirubin,Total 0.8 mg/dL (0.2-1.3); Blood Urea Nitrogen 20 mg/dL (7-17); Calcium 9.1 mg/dL (8.4-10.2); Carbon Dioxide 28 mmol/L (22-30); Chloride 105 mmol/L (98-107); Estimated CRCL calculation 49 ml/min; Estimated Glomerular Filt Rate > 60; Glucose 107 mg/dL (65-110); Potassium 3.8 mmol/L (3.4-5.0); Sodium 138 mmol/L (137-145)
--- NOTE | 2023-10-10 07:19 | P.PNIM_ITS ---
Progress Note: A&P Assessment and Plan (1) Physical deconditioning: Code(s): R53.81 - Other malaise Status: Acute Assessment and Plan: 10/09/2023: * PT and OT ordered * Case coordination consulted for outpatient rehab needs 10/10/2023: * continue with plan of care (2) Fall: Code(s): W19.XXXA - Unspecified fall, initial encounter Status: Acute Assessment and Plan: 10/09/2023: * Status post ground level fall on 10/08/2023 when getting up out of the bed. Patient did hit her head and her face. Patient was sent home and was too weak to get up off of the floor. * Likely due to prolonged physical deconditioning and weakness * CT of the head showing a normal aging brain * Head/cervical spine/facial bone CT was negative for fracture, shown severe cervical spondylosis * Pelvis x-ray showed moderate right hip osteoarthritis and mild left hip oste oarthritis * PT and OT ordered * Continue fall precautions * Case coordination consulted for outpatient rehab needs * Tylenol and Ultram ordered for pain * Considerable amount of bilateral lower extremity edema from hips down, will hold p.o. Lasix and start IV Lasix 40 mg daily. * We will also check an echocardiogram today considering there is no echo to review in the EMR 10/10/2023: * switch Lasix back to p.o. and discontinued IV Lasix * continue current plan of care (3) Hypertension: Code(s): I10 - Essential (primary) hypertension Status: Chronic Assessment and Plan: 10/09/2023: * Blood pressure ranging 135/82 to 137/76 * Continue lisinopril, Lasix, and Cozaar * pro BNP 444 10/10/2023: * blood pressure well controlled * no change to current treatment plan (4) Type 2 diabetes mellitus: Code(s): E11.9 - Type 2 diabetes mellitus without complications Status: Chronic Assessment and Plan: 10/09/2023: * Blood sugars ranging 81-102 * Hemoglobin A1c ordered * AC/ HS Accu-Checks * Low-dose sliding scale insulin * Hold Farxiga 10 mg tab as it is non formulary * Hypoglycemic protocol ordered 10/10/2023: * blood sugars ranging 99-187 * continue with current treatment plan (5) Hyperlipidemia: Code(s): E78.5 - Hyperlipidemia, unspecified Status: Chronic Assessment and Plan: 10/09/2023: * Continue atorvastatin 10/10/2023: * continue with current treatment plan (6) Depression: Code(s): F32.A - Depression, unspecified Status: Chronic Assessment and Plan: 10/09/2023: * Continue Prozac 10/10/2023: * continue with current treatment plan Time Spent With Patient Time with patient: 25 - 35 minutes Subjective Date/time seen: 10/10/23 07:19 Interval history: 10/09/24: This is an 83-year-old female with a significant past medical history of depression, hyperlipidemia, hypertension, type 2 diabetes mellitus, peripheral neuropathy who presented to the ED with chief complaint of fall.? Patient states that she was getting up out of the bed fell and landed on her face.? She also stated that she was too weak to get up.? She states that she has had 3 falls in the past year.? She has not had any recent illnesses and has progressively gotten weaker over the years.? She currently uses a walker at home at baseline.? She denies any fever, chills, nausea, vomiting, diarrhea, abdominal pain, chest pain, shortness a breath, lightheadedness, dizziness, numbness, or tingling.? She does have a black eye on the left from the fall, skin tear to the left forearm, and a sk
--- NOTE | 2023-10-10 07:19 | PM.IMPN ---
Progress Note: A&P Assessment and Plan (1) Physical deconditioning: Code(s): R53.81 - Other malaise Status: Acute Assessment and Plan: 10/09/2023: PT and OT ordered Case coordination consulted for outpatient rehab needs 10/10/2023: continue with plan of care (2) Fall: Code(s): W19.XXXA - Unspecified fall, initial encounter Status: Acute Assessment and Plan: 10/09/2023: Status post ground level fall on 10/08/2023 when getting up out of the bed. Patient did hit her head and her face. Patient was sent home and was too weak to get up off of the floor. Likely due to prolonged physical deconditioning and weakness CT of the head showing a normal aging brain Head/cervical spine/facial bone CT was negative for fracture, shown severe cervical spondylosis Pelvis x-ray showed moderate right hip osteoarthritis and mild left hip osteoarthritis PT and OT ordered Continue fall precautions Case coordination consulted for outpatient rehab needs Tylenol and Ultram ordered for pain Considerable amount of bilateral lower extremity edema from hips down, will hold p.o. Lasix and start IV Lasix 40 mg daily. We will also check an echocardiogram today considering there is no echo to review in the EMR 10/10/2023: switch Lasix back to p.o. and discontinued IV Lasix continue current plan of care (3) Hypertension: Code(s): I10 - Essential (primary) hypertension Status: Chronic Assessment and Plan: 10/09/2023: Blood pressure ranging 135/82 to 137/76 Continue lisinopril, Lasix, and Cozaar pro BNP 444 10/10/2023: blood pressure well controlled no change to current treatment plan (4) Type 2 diabetes mellitus: Code(s): E11.9 - Type 2 diabetes mellitus without complications Status: Chronic Assessment and Plan: 10/09/2023: Blood sugars ranging 81-102 Hemoglobin A1c ordered AC/ HS Accu-Checks Low-dose sliding scale insulin Hold Farxiga 10 mg tab as it is non formulary Hypoglycemic protocol ordered 10/10/2023: blood sugars ranging 99-187 continue with current treatment plan (5) Hyperlipidemia: Code(s): E78.5 - Hyperlipidemia, unspecified Status: Chronic Assessment and Plan: 10/09/2023: Continue atorvastatin 10/10/2023: continue with current treatment plan (6) Depression: Code(s): F32.A - Depression, unspecified Status: Chronic Assessment and Plan: 10/09/2023: Continue Prozac 10/10/2023: continue with current treatment plan Time Spent With Patient Time with patient: 25 - 35 minutes Subjective Date/time seen: 10/10/23 07:19 Interval history: 10/09/24: This is an 83-year-old female with a significant past medical history of depression, hyperlipidemia, hypertension, type 2 diabetes mellitus, peripheral neuropathy who presented to the ED with chief complaint of fall.? Patient states that she was getting up out of the bed fell and landed on her face.? She also stated that she was too weak to get up.? She states that she has had 3 falls in the past year.? She has not had any recent illnesses and has progressively gotten weaker over the years.? She currently uses a walker at home at baseline.? She denies any fever, chills, nausea, vomiting, diarrhea, abdominal pain, chest pain, shortness a breath, lightheadedness, dizziness, numbness, or tingling.? She does have a black eye on the left from the fall, skin tear to the left forearm, and a skin tear to the left mcdonald with serous drainage.? Workup in the hospital includes CT brain without contrast which was normal.? Head/cervical spine/facial bone CT was negative for fracture, showed severe cervical spondylosis.? Chest x-ray shows mild pulmonary edema.? Pelvis x-ray shows moderate right hip osteoarthritis and mild left hip osteoarthritis.? EKG showing sinus rhythm with occasional PVCs, rate 66, QTC 438. Initial labs revealed white blood count of 13.
[2023-10-10 08:11] LABS: Glucose Point of Care 99 mg/dl (65-105)
[2023-10-10 09:40] VITALS: BP 131/62; PULSE 68
[2023-10-10] MEDS: ENOXAPARIN 40 MG/0.4 ML SYRINGE SUB-Q (09:43)
[2023-10-10] MEDS: PANTOPRAZOLE 40 MG TABLET PO (09:43)
[2023-10-10] MEDS: FUROSEMIDE 20 MG TABLET PO (09:43)
[2023-10-10] MEDS: LOSARTAN POTASSIUM 50 MG TABLET PO (09:43)
[2023-10-10] MEDS: ATORVASTATIN 10 MG TABLET PO (09:43)
[2023-10-10] MEDS: amLODIPine BESYLATE 5 MG TABLET 10 MG PO (09:43)
[2023-10-10] MEDS: FLUoxetine HCL 20 MG CAPSULE PO (09:43)
[2023-10-10] MEDS: DOCUSATE SODIUM 100 MG CAPSULE PO ×2 (09:43→17:09)
[2023-10-10] MEDS: glipiZIDE XL 2.5 MG TAB.ER.24 PO (09:43)
[2023-10-10 10:27] LABS: Hypochromasia 1+ (NORMAL); Platelet Estimate Adequate (Adequate); Schistocytes None Seen (NORMAL)
[2023-10-10 11:32] LABS: Glucose Point of Care 173 mg/dl (65-105)
[2023-10-10 13:59] VITALS: BP 130/68; PULSE 63; RESP 17; TEMP 36.9; O2SAT 99
[2023-10-10 16:58] LABS: Glucose Point of Care 154 mg/dl (65-105)
[2023-10-10 20:00] VITALS: PULSE 60; RESP 18; O2SAT 95
[2023-10-10 20:10] VITALS: BP 132/68; PULSE 60; RESP 18; TEMP 36.8; O2SAT 95
[2023-10-10 22:38] LABS: Glucose Point of Care 168 mg/dl (65-105)
[2023-10-11 03:59] VITALS: BP 137/54; PULSE 65; RESP 20; TEMP 36.4; O2SAT 95
[2023-10-11 05:32] LABS: Basophils Percent Auto 0.4 % (0.2-1.2); Eosinophils Absolute Auto 0.3 K/mm3 (0-0.3); Hematocrit 35.5 % (37.0-47.0); Hemoglobin 10.8 g/dL (12.0-15.0); Immature Granulocyte Absolute 0.03 K/mm3 (0.00-0.031); Immature Granulocyte Percent A 0.4 % (0-0.5); Lymphocytes Absolute Auto 1.17 K/mm3 (0.9-3.2); Lymphocytes Percent Auto 13.7 % (18.3-44.2); Mean Corpuscular HGB Conc 30.4 g/dl (32-36); Mean Corpuscular Volume 95.2 fl (80-100); Mean Platelet Volume 9.2 fl (7.4-10.4); Monocytes Absolute Auto 1.2 K/mm3 (0.1-0.6); Monocytes Percent Auto 14.2 % (2.6-8.5); Neutrophils Absolute Auto 5.8 K/mm3 (1.3-6.7); Neutrophils Percent Auto 68.3 % (45.5-73.1); Platelet Count Result 355 k/mm3 (150-375); Red Blood Count 3.73 M/mm3 (4.2-5.4); Red Cell Distribution Width 14.8 % (11.5-14.5); White Blood Count 8.5 K/mm3 (4.5-10.0)
[2023-10-11 05:48] LABS: Alanine Aminotransferase 19 U/L (6-35); Albumin Level 3.7 g/dL (3.5-5.1); Alkaline Phosphatase 99 U/L (38-126); Anion Gap 6 mmol/L (8-16); Aspartate Amino Transferase 26 U/L (14-36); Bilirubin,Total 0.9 mg/dL (0.2-1.3); Blood Urea Nitrogen 23 mg/dL (7-17); Calcium 9.1 mg/dL (8.4-10.2); Carbon Dioxide 27 mmol/L (22-30); Chloride 106 mmol/L (98-107); Estimated CRCL calculation 44 ml/min; Estimated Glomerular Filt Rate 60; Glucose 120 mg/dL (65-110); Potassium 3.8 mmol/L (3.4-5.0); Sodium 139 mmol/L (137-145)
[2023-10-11 08:35] LABS: Glucose Point of Care 130 mg/dl (65-105)
[2023-10-11] MEDS: FLUoxetine HCL 20 MG CAPSULE PO (09:05)
[2023-10-11] MEDS: amLODIPine BESYLATE 5 MG TABLET 10 MG PO (09:05)
[2023-10-11] MEDS: ATORVASTATIN 10 MG TABLET PO (09:06)
[2023-10-11] MEDS: FUROSEMIDE 20 MG TABLET PO (09:06)
[2023-10-11] MEDS: glipiZIDE XL 2.5 MG TAB.ER.24 PO (09:06)
[2023-10-11] MEDS: ENOXAPARIN 40 MG/0.4 ML SYRINGE SUB-Q (09:06)
[2023-10-11] MEDS: DOCUSATE SODIUM 100 MG CAPSULE PO ×2 (09:06→17:53)
[2023-10-11] MEDS: PANTOPRAZOLE 40 MG TABLET PO (09:06)
[2023-10-11] MEDS: LOSARTAN POTASSIUM 50 MG TABLET PO (09:06)
[2023-10-11 12:32] LABS: Glucose Point of Care 183 mg/dl (65-105)
[2023-10-11 14:00] VITALS: BP 111/52; PULSE 62; RESP 18; TEMP 36.6; O2SAT 100
[2023-10-11 17:42] LABS: Glucose Point of Care 130 mg/dl (65-105)
[2023-10-11 20:00] VITALS: PULSE 64; RESP 18; O2SAT 98
[2023-10-11 20:53] LABS: Glucose Point of Care 164 mg/dl (65-105)
[2023-10-11 21:12] VITALS: BP 145/57; PULSE 64; RESP 18; TEMP 36.5; O2SAT 98
[2023-10-12] MEDS: traMADol HCL (*CRX) 25 MG TABLET PO (00:21)
[2023-10-12 05:51] LABS: Basophils Absolute Auto 0.1 K/mm3 (0.0-0.1); Basophils Percent Auto 0.5 % (0.2-1.2); Eosinophils Absolute Auto 0.2 K/mm3 (0-0.3); Eosinophils Percent Auto 1.6 % (0-4.4); Hematocrit 38.4 % (37.0-47.0); Hemoglobin 11.1 g/dL (12.0-15.0); Immature Granulocyte Absolute 0.05 K/mm3 (0.00-0.031); Immature Granulocyte Percent A 0.5 % (0-0.5); Lymphocytes Absolute Auto 0.89 K/mm3 (0.9-3.2); Lymphocytes Percent Auto 8.2 % (18.3-44.2); Mean Corpuscular HGB Conc 28.9 g/dl (32-36); Mean Corpuscular Hemoglobin 28.2 pg (26-34); Mean Corpuscular Volume 97.5 fl (80-100); Mean Platelet Volume 9.4 fl (7.4-10.4); Monocytes Absolute Auto 1.4 K/mm3 (0.1-0.6); Monocytes Percent Auto 12.8 % (2.6-8.5); Neutrophils Absolute Auto 8.3 K/mm3 (1.3-6.7); Neutrophils Percent Auto 76.4 % (45.5-73.1); Platelet Count Result 380 k/mm3 (150-375); Red Blood Count 3.94 M/mm3 (4.2-5.4); Red Cell Distribution Width 14.6 % (11.5-14.5); White Blood Count 10.9 K/mm3 (4.5-10.0)
[2023-10-12 05:58] LABS: Alanine Aminotransferase 21 U/L (6-35); Albumin Level 3.9 g/dL (3.5-5.1); Alkaline Phosphatase 99 U/L (38-126); Anion Gap 6 mmol/L (8-16); Aspartate Amino Transferase 29 U/L (14-36); Bilirubin,Total 0.9 mg/dL (0.2-1.3); Blood Urea Nitrogen 23 mg/dL (7-17); Calcium 9.3 mg/dL (8.4-10.2); Carbon Dioxide 24 mmol/L (22-30); Chloride 106 mmol/L (98-107); Estimated CRCL calculation 49 ml/min; Estimated Glomerular Filt Rate > 60; Glucose 135 mg/dL (65-110); Potassium 4.2 mmol/L (3.4-5.0); Sodium 136 mmol/L (137-145)
[2023-10-12 06:00] VITALS: BP 125/49; PULSE 62; RESP 18; TEMP 36.8; O2SAT 100
[2023-10-12 07:13] LABS: Anisocytosis 1+ (NORMAL); Hypochromasia 1+ (NORMAL); Schistocytes None Seen (NORMAL)
[2023-10-12 08:19] LABS: Glucose Point of Care 128 mg/dl (65-105)
[2023-10-12] MEDS: LOSARTAN POTASSIUM 50 MG TABLET PO (08:50)
[2023-10-12] MEDS: ATORVASTATIN 10 MG TABLET PO (08:50)
[2023-10-12] MEDS: amLODIPine BESYLATE 5 MG TABLET 10 MG PO (08:50)
[2023-10-12] MEDS: glipiZIDE XL 2.5 MG TAB.ER.24 PO (08:50)
[2023-10-12] MEDS: FLUoxetine HCL 20 MG CAPSULE PO (08:50)
[2023-10-12] MEDS: PANTOPRAZOLE 40 MG TABLET PO (08:50)
[2023-10-12] MEDS: DOCUSATE SODIUM 100 MG CAPSULE PO (08:50)
[2023-10-12] MEDS: ENOXAPARIN 40 MG/0.4 ML SYRINGE SUB-Q (08:51)
[2023-10-12] MEDS: FUROSEMIDE 20 MG TABLET PO (08:51)
[2023-10-12 12:05] LABS: Glucose Point of Care 205 mg/dl (65-105)
--- NOTE | 2023-10-12 12:06 | PM.DS ---
DS: Admitting Diagnosis Discharge Date 10/12/23 Admitting Diagnosis Physical deconditioning Fall Hypertension Type 2 diabetes mellitus Hyperlipidemia Depression DS: Discharge Diagnosis Discharge Diagnosis (1) Physical deconditioning: Code(s): R53.81 - Other malaise Status: Acute (2) Fall: Code(s): W19.XXXA - Unspecified fall, initial encounter Status: Acute (3) Hypertension: Code(s): I10 - Essential (primary) hypertension Status: Chronic (4) Type 2 diabetes mellitus: Code(s): E11.9 - Type 2 diabetes mellitus without complications Status: Chronic (5) Hyperlipidemia: Code(s): E78.5 - Hyperlipidemia, unspecified Status: Chronic (6) Depression: Code(s): F32.A - Depression, unspecified Status: Chronic DS: Summary Hospital Course Reason for hospitalization: Physical deconditioning Fall Hypertension Type 2 diabetes mellitus Hyperlipidemia Depression Hospital Course: 10/09/24: This is an 83-year-old female with a significant past medical history of depression, hyperlipidemia, hypertension, type 2 diabetes mellitus, peripheral neuropathy who presented to the ED with chief complaint of fall.? Patient states that she was getting up out of the bed fell and landed on her face.? She also stated that she was too weak to get up.? She states that she has had 3 falls in the past year.? She has not had any recent illnesses and has progressively gotten weaker over the years.? She currently uses a walker at home at baseline.? She denies any fever, chills, nausea, vomiting, diarrhea, abdominal pain, chest pain, shortness a breath, lightheadedness, dizziness, numbness, or tingling.? She does have a black eye on the left from the fall, skin tear to the left forearm, and a skin tear to the left mcdonald with serous drainage.? Workup in the hospital includes CT brain without contrast which was normal.? Head/cervical spine/facial bone CT was negative for fracture, showed severe cervical spondylosis.? Chest x-ray shows mild pulmonary edema.? Pelvis x-ray shows moderate right hip osteoarthritis and mild left hip osteoarthritis.? EKG showing sinus rhythm with occasional PVCs, rate 66, QTC 438. Initial labs revealed white blood count of 13.1, hemoglobin 10.6, hematocrit 35.2, platelet count 385, INR 1.1, magnesium 2.5, proBNP 444.? UA was obtained which showed 3+ glucose.? Respiratory panel was obtained and was negative for influenza a and B, RSV, COVID.? Patient was given 40 mg IV push Lasix and some Tylenol while in the ED. On examination today patient is alert oriented x3, lying in the bed.? She denies any new complaints overnight.? Labs revealed a white blood cell count of 11.7, RBC 3.81, hemoglobin 11.0, hematocrit 36.6, platelet count 381, hemoglobin A1c 6.2, magnesium 2.4, liver enzymes are normal, kidney function is normal.? Echo ordered for today.? We will also hold her p.o. Lasix and give her 40 mg IV push Lasix daily considering her edema. 10/10/23: ?on examination today patient is alert oriented x3, sitting in the chair.? She is eating breakfast.? She denies any new complaints today.? She denies headache, nausea, vomiting, vision changes.? Her vital signs are stable, she is on room air, she is afebrile.? Plan is for her to work with therapy today.? OT seen her yesterday and stated in their note that she would benefit from skilled occupational therapy.? Will await PT recommendations.? Management consulted and working on outpatient rehab needs. 10/11/2023: Patient denies any new complaints today, patient requiring shelter upon discharge per PT and OT evaluations. Case management working to get placement. Labs essentially unremarkable. 10/12/2023: Patient denies new complaints today. Labs today showed a white blood cell count 10, hemoglobin 11.1, sodium 130, blood sugars ranging 128-130. Patient is stable for discharge to SNF today. She will need to follow up with her primary care
--- NOTE | 2023-10-12 13:28 | PC.NURSE ---
RN HELD 1200 scheduled insulin depsite blood sugar reading due to patient not requiring any subQ insulin during this stay and lunch intake. Will recheck sugar for dinner.
[2023-10-12 14:00] VITALS: BP 140/48; PULSE 62; RESP 16; TEMP 36.5; O2SAT 100
[2023-10-12 15:48] LABS: SARS-CoV-2 RNA PCR Negative (Negative)
[2023-10-12] MEDS: TAMSULOSIN HCL 0.4 MG CAPSULE PO (16:00)
== END 2023-10-12 16:02 ==
LOC: ANHED 10-09 00:26 → ANH3MED 10-11 08:27
PROVIDERS: Nurse Practitioner Acute Care; Admitting Provider Internal Medicine; Emergency Provider Emergency Medicine; PCP Internal Medicine; Visit Provider Internal Medicine
DX: S51.812A Laceration without foreign body of left forearm, initial encounter (principal); S00.12XA Contusion of left eyelid and periocular area, initial encounter; S81.812A Laceration without foreign body, left lower leg, initial encounter; W19.XXXA Unspecified fall, initial encounter; R53.81 Other malaise; Z99.89 Dependence on other enabling machines and devices; R29.6 Repeated falls; J81.1 Chronic pulmonary edema; R53.1 Weakness; M47.812 Spondylosis without myelopathy or radiculopathy, cervical region; Z20.822 Contact with and (suspected) exposure to COVID-19; I10 Essential (primary) hypertension; I08.1 Rheumatic disorders of both mitral and tricuspid valves; F32.A Depression, unspecified; E78.5 Hyperlipidemia, unspecified; I27.20 Pulmonary hypertension, unspecified; M16.0 Bilateral primary osteoarthritis of hip; E11.42 Type 2 diabetes mellitus with diabetic polyneuropathy; R63.5 Abnormal weight gain; Z68.41 Body mass index [BMI] 40.0-44.9, adult; Z79.1 Long term (current) use of non-steroidal anti-inflammatories (NSAID); Z79.84 Long term (current) use of oral hypoglycemic drugs; Z79.899 Other long term (current) drug therapy; Z82.49 Family history of ischemic heart disease and other diseases of the circulatory system
CPT/HCPCS: 36415; 70450; 70486; 71045; 72125; 72170; 80053; 81003; 82948; 83036; 83690; 83735; 83880; 85025; 85610; 85730; 87635; 87637; 93005; 96372; 96374; 96375; 97116; 97161; 97165; 97530; 97535; 99285; A9270; C8929; G0378; J1650; J1940; Q9957

== ENCOUNTER 2023-11-28 06:46 | Emergency (ER) | payer OTHER, SELFPAY ==
--- NOTE | ~2023-11-28 | XR_ITS ---
EXAMINATION: XR pelvis 1-2V DATE: 11/28/2023 07:44 INDICATION: Fall from wheelchair TECHNIQUE: An anteroposterior view of the pelvis was obtained. COMPARISON: 10/08/2023 FINDINGS: Alignment is normal. No fracture. Severe lumbar spondylosis. 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 IMPRESSION: 1. Moderate right sided and mild left-sided hip and sacroiliac osteoarthritis. No acute osseous abnor mality. Reviewed, dictated and finalized at location A. IMPRESSION: 1. Moderate right sided and mild left-sided hip and sacroiliac osteoarthritis. No acute osseous abnormality.
--- NOTE | ~2023-11-28 | CT_ITS ---
EXAMINATION: CT brain wo con DATE: 11/28/2023 07:39 INDICATION: Fall from wheelchair with face, head and neck injury. TECHNIQUE: Computed tomography (CT) of the head was performed without intravenous contrast. Sagittal and coronal reconstructions were performed. The mA was adjusted according to patient size. Iterative reconstruction technique was employed. The dose-length product was 605.33 mGy-cm. COMPARISON: head CT dated 10/08/2023 FINDINGS: No fracture. There are couple small foci of subarachnoid hemorrhage along a gyrus in the posterior le ft frontal lobe. There is mild scattered white matter hypoattenuation consistent with chronic small v essel ischemic disease. No acute intracranial infarction or abnormal extra axial fluid collection. Ve ntricles are normal and symmetric. No mass/mass effect. Mild mucosal thickening the bilateral ethmoid sinuses. Changes of bilateral intraocular lens replacement. Mastoid air cells and middle ear cavitie s are clear. Intracranial calcified cerebral atherosclerosis is noted. IMPRESSION: 1. A couple small foci of subarachnoid hemorrhage in the left frontal lobe. Dr. Deleon discussed th devang findings with Dr. Perez at 7:55 AM. Reviewed, dictated and finalized at location A. IMPRESSION: 1. A couple small foci of subarachnoid hemorrhage in the left frontal lobe. Dr. Deleon discussed these findings with Dr. Perez at 7:55 AM.
--- NOTE | ~2023-11-28 | XR_ITS ---
EXAMINATION: XR chest 1V portable DATE: 11/28/2023 07:44 INDICATION: Fall from wheelchair TECHNIQUE: frontal view of the chest was obtained. COMPARISON: Chest radiograph dated 10/08/2023 FINDINGS: Calcified nodule at the right lung base consistent with old granulomatous disease. Unchanged mild castro vation the left hemidiaphragm with mild streaky left basilar atelectasis/scarring. No pulmonary edema , pleural effusion or pneumothorax. The cardiomediastinal silhouette is normal. IMPRESSION: 1. Mild streaky left basilar atelectasis/scarring. No other acute cardiopulmonary disease. Reviewed, dictated and finalized at location A. IMPRESSION: 1. Mild streaky left basilar atelectasis/scarring. No other acute cardiopulmona ry disease.
--- NOTE | ~2023-11-28 | CT_ITS ---
EXAMINATION: 1. CT facial & cervical spine wo DATE: 11/28/2023 07:40 INDICATION: Fall with facial and neck injury TECHNIQUE: 1. Computed tomography (CT) of the maxillofacial region and of the cervical spine were performed with out intravenous contrast. Sagittal and coronal reconstructions of both regions were obtained. Automat ed exposure control and iterative reconstruction technique were employed. The dose-length product was 583.25 mGy-cm. COMPARISON: Head CT dated 11/28/2023 and maxillofacial and cervical CT dated 10/08/2023 FINDINGS: Maxillofacial CT: There is some motion artifact at the level of the frontal and ethmoid sinuses however when read in co njunction with the contemporaneous head CT was without motion artifact at this level this does not si gnificantly limit evaluation. Periapical lucency and displacement of the right maxillary incisor philippe norton is now angulated approximately 40 degrees posteriorly from with tiny fracture fragment involving t he posterior wall of the socket of the tooth. No other maxillofacial fractures. Specifically the sarah ible, zygomatic arches, carr of the orbits and paranasal sinuses are all normal. Nasal septum is mid line. Mild mucosal thickening the bilateral ethmoid sinuses. Changes of bilateral intraocular lens re placement. Cervical spine CT: Unchanged slight cervical levocurvature. Unchanged 2 mm anterolisthesis C7 on T1. Cervical vertebral body heights are normal. Chronic appearing mild right anterior wedging of T3 with 20% right anterior vertebral body height loss. No acute fractures.. Severe disc height loss at C6-C7, moderate disc heig ht loss at C5-C6 and mild disc height loss at the remaining cervical and upper thoracic levels. Poste rior disc osteophyte complex resulting in mild central canal stenosis. Multilevel bilateral moderate to severe cervical and upper thoracic facet osteoarthritis and moderate to severe uncovertebral osteo arthritis at the lower cervical spine. This contributes to multilevel neural foraminal stenosis. To cindi archibald report for level by level detail of the cervical spondylosis. IMPRESSION: 1. Displacement of the right maxillary central incisor with tiny fracture fragment involving the post erior rim of the socket. 2. Severe cervical spondylosis with no acute osseous abnormality. Reviewed, dictated and finalized at location A. IMPRESSION: 1. Displacement of the right maxillary central incisor with tiny fracture fragm ent involving the posterior rim of the socket. 2. Severe cervical spondylosis with no acute osseous abnormality.
[2023-11-28 06:45] VITALS: BP 137/60; PULSE 70; RESP 20; TEMP 36.8; O2SAT 99
--- NOTE | 2023-11-28 07:06 | ED.FALL ---
HPI - Fall General Chief Complaint: Fall Stated Complaint: fall Time Seen by Provider: 11/28/23 06:58 History of Present Illness HPI Narrative: Patient is an 83 year old female with history of depression, HLD, HTN, peripheral neuropathy, T2DM here from [facility] after a fall from her wheelchair. Patient reportedly fell forward out of her wheelchair. She does not remember the incident. She currently denies any pain or symptoms. Staff was concerned about possible dental injury. Related Data Home Medications Medication Instructions Recorded Confirmed dapagliflozin propanediol 10 mg 10 mg PO DAILY 05/12/22 11/24/23 tablet (Farxiga) furosemide 20 mg tablet (Lasix) 20 mg PO DAILY 05/12/22 11/24/23 glipizide 2.5 mg tablet, extended 2.5 mg PO DAILY 05/12/22 11/24/23 release 24 hr losartan 50 mg tablet 50 mg PO DAILY 05/12/22 11/24/23 acetaminophen 500 mg tablet 1,000 mg PO Q6H PRN Pain 10/09/23 11/24/23 (Acetaminophen Extra Strength) amlodipine 10 mg tablet 10 mg PO DAILY 10/09/23 11/24/23 atorvastatin 10 mg tablet 10 mg PO DAILY 10/09/23 11/24/23 fluoxetine 20 mg capsule 20 mg PO DAILY 10/09/23 11/24/23 Allergies Allergy/AdvReac Type Severity Reaction Status Date / Time No Known Allergies Allergy Verified 10/09/23 17:17 Review of Systems Review of Systems: ROS unobtainable: Yes unobtainable due to mental status (dementia) [facility] Past Medical History Medical History Depression Hyperlipidemia Hypertension Peripheral neuropathy Type 2 diabetes mellitus Surgical History Surgical History History of tonsillectomy Family History Family History Other Cardiovascular disease Social History Social History Smoking status: Never smoker Alcohol intake: never Substance use: never Do You Feel Safe in your Home?: Yes Lack of Transportation: No Lack of Food: Never True Current Housing: I Have Housing Concerned About Future Housing: No Difficulty Paying Gas/Electric Bills: No Difficulty Paying for Meds: No Currently Unemployed: No Education: Master's Degree or Higher Difficulty w/ Childcare or Family Care: No Spiritual care concerns: No Exam Narrative: GENERAL: Well-appearing, well-nourished, and in no acute distress. HEAD: Normocephalic EYES: PERRLA and EOMI. ENT: Nares clear. Mucous membranes moist. Tooth 8 appears to be inferiorly and posteriorly subluxed. Bleeding controlled. Dried blood on lips with superficial anterior abrasions present, 5mm laceration to the lip mucosal in front of tooth 8. Does not appear to be a through and through laceration. NECK: Supple. CHEST: Clear to auscultation. No respiratory distress. No chest wall tenderness. HEART: Regular rate and rhythm. Normal peripheral pulses. ABDOMEN: Soft, nontender, nondistended. EXTREMITIES: Normal range of motion. No midline cervical, thoracic or lumbar tenderness. Bilateral upper and lower extremities atraumatic, non tender with normal ROM bilaterally. Strong distal pulses in upper and lower extremities. SKIN: Warm, dry, no rash. NEURO: No focal deficits. Alert and oriented x2. Course Course Emergency Course: Chart review performed. Patient here from [facility] after ground level fall from wheelchair with head injury. Baseline mental status reportedly AOx2. Reported history of frequent falls, no blood thinner use. Triage vitals grossly normal. shelter report reviewed from 11/24/23 noting history of depression, HLD, HTN, peripheral neuropathy, T2DM. Home med list shows no blood thinners. Patient seen and evaluated, non toxic appearing. Obvious head trauma, no additional obvious injuries. Will do CT head, facial bones, neck, CXR, pelvic XR, UA. Spoke with [facility]. Nurs
[2023-11-28] MEDS: TETANUS,DIPHTHERIA,AC PERTUSSIS ADULT (0.5 ML) BOOSTRIX IM (07:21)
[2023-11-28] MEDS: ACETAMINOPHEN 500 MG TABLET 1000 MG PO (07:22)
[2023-11-28 08:18] LABS: Appearance Urine Clear (Clear); Bilirubin Urine Negative (Negative); Blood Urine Negative (Negative); Color Urine Yellow (Yellow); Glucose Urine UA 3+ mg/dL (Negative); Ketones Urine Negative (Negative); Leukocyte Esterase Ur Negative LEU/UL (Negative); Nitrate Urine Negative (Negative); Protein Urine Negative (Negative); Specific Grav Ur 1.021 (1.001-1.035); Urobilinogen Urine 0.2 mg/dL (<2.0)
[2023-11-28 08:22] VITALS: BP 113/83; PULSE 66; RESP 20; O2SAT 97
[2023-11-28 08:27] LABS: Add Urine Microscopic? NO
[2023-11-28 08:28] LABS: Basophils Absolute Auto 0.1 K/mm3 (0.0-0.1); Basophils Percent Auto 0.5 % (0.2-1.2); Eosinophils Absolute Auto 0.2 K/mm3 (0-0.3); Eosinophils Percent Auto 2.2 % (0-4.4); Hematocrit 44.7 % (37.0-47.0); Hemoglobin 13.7 g/dL (12.0-15.0); Immature Granulocyte Absolute 0.03 K/mm3 (0.00-0.031); Immature Granulocyte Percent A 0.3 % (0-0.5); Lymphocytes Absolute Auto 2.07 K/mm3 (0.9-3.2); Lymphocytes Percent Auto 18.7 % (18.3-44.2); Mean Corpuscular HGB Conc 30.6 g/dl (32-36); Mean Corpuscular Hemoglobin 27.8 pg (26-34); Mean Corpuscular Volume 90.7 fl (80-100); Mean Platelet Volume 10.2 fl (7.4-10.4); Monocytes Absolute Auto 1.1 K/mm3 (0.1-0.6); Monocytes Percent Auto 9.9 % (2.6-8.5); Neutrophils Absolute Auto 7.6 K/mm3 (1.3-6.7); Neutrophils Percent Auto 68.4 % (45.5-73.1); Platelet Count Result 299 k/mm3 (150-375); Red Blood Count 4.93 M/mm3 (4.2-5.4); Red Cell Distribution Width 17.5 % (11.5-14.5); White Blood Count 11.1 K/mm3 (4.5-10.0)
[2023-11-28 08:38] LABS: Alanine Aminotransferase 28 U/L (6-35); Albumin Level 4.1 g/dL (3.5-5.1); Alkaline Phosphatase 120 U/L (38-126); Anion Gap 3 mmol/L (4-12); Aspartate Amino Transferase 35 U/L (14-36); Bilirubin,Total 0.6 mg/dL (0.2-1.3); Blood Urea Nitrogen 20 mg/dL (7-17); Calcium 9.8 mg/dL (8.4-10.2); Carbon Dioxide 33 mmol/L (22-30); Chloride 102 mmol/L (98-107); Creatine Kinase 77 U/L (30-135); Estimated CRCL calculation 56 ml/min; Estimated Glomerular Filt Rate > 60; Glucose 126 mg/dL (65-110); Magnesium 2.3 mg/dL (1.6-2.3); Potassium 4.3 mmol/L (3.4-5.0); Prothrombin Time 13.4 Seconds (11.1-14.7); Sodium 138 mmol/L (137-145)
[2023-11-28 08:40] LABS: Lactic Acid Reflex 1.5 mmol/L (0.7-2.0); Partial Thromboplastin Time 31.1 Seconds (22.3-36.8)
--- NOTE | 2023-11-28 09:44 | PCCCNOTE ---
Met with POA of pt Meagan Story ([phone]) regarding hospice referral. They would like to set up informational meeting to decide if pt qualifies and is appropriate for hospice. [facility] hospice has been used by other family member and they would like to use [facility] again. Call made to [facility] at [phone].
--- NOTE | 2023-11-28 10:21 | PCCCNOTE ---
[facility] hospice contacted, information sent and they will set up meeting with pt and family for tomorrow.
[2023-11-28 10:36] VITALS: BP 115/86; PULSE 66; RESP 21; O2SAT 96
[2023-11-28] MEDS: DOXYCYCLINE HYCLATE 100 MG TABLET PO (10:39)
[2023-11-28 11:10] VITALS: BP 120/76; PULSE 60; RESP 19; O2SAT 96
== END 2023-11-28 11:10 ==
PROVIDERS: Emergency Provider Student in an Organized Health Care Education/Training Program; PCP Internal Medicine
DX: S06.6XAA Traumatic subarachnoid hemorrhage with loss of consciousness status unknown, initial encounter (principal); S03.2XXA Dislocation of tooth, initial encounter; Z23 Encounter for immunization; I10 Essential (primary) hypertension; E78.5 Hyperlipidemia, unspecified; E11.42 Type 2 diabetes mellitus with diabetic polyneuropathy; F32.A Depression, unspecified; Z79.84 Long term (current) use of oral hypoglycemic drugs; W05.0XXA Fall from non-moving wheelchair, initial encounter
CPT/HCPCS: 36415; 70450; 70486; 71045; 72125; 72170; 80053; 81003; 82550; 83605; 83735; 85025; 85610; 85730; 90471; 90715; 99284; A9270

== ENCOUNTER 2024-03-26 07:32 | Emergency (ER) | payer OTHER, SELFPAY ==
--- NOTE | ~2024-03-26 | CT_ITS ---
EXAMINATION: CT cervical spine wo con DATE: 03/26/2024 10:17 INDICATION: Head injury. Fall. TECHNIQUE: Computed tomography (CT) of the cervical spine was performed without intravenous contrast. Automated exposure control and iterative reconstruction technique were employed. The dose-length pro duct was 448.38 mGy-cm. COMPARISON: CT cervical spine 11/28/2023 FINDINGS: There is 13 degrees levoscoliosis of cervical spine. Vertebral body heights are normal. The re is severely decreased disc height at C5-C6 and C6-C7. The following disc levels are specifically d iscussed: C2-C3: There is mild bilateral uncovertebral joint osteoarthritis. There is severe bilateral facet césar int osteoarthritis. There is no neural foraminal stenosis. There is mild central canal stenosis. C3-C4: There is severe right and mild left uncovertebral joint osteoarthritis. There is severe bilate ral facet joint osteoarthritis. There is mild bilateral neural foraminal stenosis. There is mild cent ral canal stenosis. C4-C5: There is mild bilateral uncovertebral joint osteoarthritis. There is mild right and severe lef t facet joint osteoarthritis. There is no neural foraminal stenosis. There is no central canal stenos is. C5-C6: There is severe bilateral uncovertebral joint osteoarthritis. There is mild right and severe l eft facet joint osteoarthritis. There is mild right and moderate left neural foraminal stenosis. Ther e is mild central canal stenosis. C6-C7: There is severe bilateral uncovertebral joint osteoarthritis. There is moderate right and radha re left facet joint osteoarthritis. There is moderate right and mild left neural foraminal stenosis. There is mild central canal stenosis. C7-T1: There is no uncovertebral joint osteoarthritis. There is severe bilateral facet joint osteoart hritis. There is mild bilateral neural foraminal stenosis. There is no central canal stenosis. IMPRESSION: 1. No fracture. 2. Severe cervical spondylosis. Reviewed, dictated and finalized at location E.
--- NOTE | ~2024-03-26 | XR_ITS ---
EXAMINATION: XR femur LT min 2V DATE: 03/26/2024 10:06 INDICATION: Left thigh pain. Fall. TECHNIQUE: 2 views of left femur on 4 radiographs were obtained. COMPARISON: None. FINDINGS: Bone alignment is normal. No fracture. There is mild left hip and knee osteoarthritis. IMPRESSION: 1. Mild polyarticular osteoarthritis. Reviewed, dictated and finalized at location E.
--- NOTE | ~2024-03-26 | CT_ITS ---
EXAMINATION: CT brain wo con DATE: 03/26/2024 10:17 INDICATION: Fall. Head injury. TECHNIQUE: Computed tomography (CT) of the head was performed without intravenous contrast. The mA wa s adjusted according to patient size. Iterative reconstruction technique was employed. The dose-lengt h product was 1362.00 mGy-cm. COMPARISON: Head CT 11/28/2023 FINDINGS: There is no intracranial hemorrhage, acute infarction, or abnormal intracranial mass lesion . There are scattered areas of low attenuation in the cerebral white matter. The ventricles are mague l in size. There are likely changes of ocular lens replacement surgeries. There is mild mucosal thick ening in the paranasal sinuses. The mastoid air cells are normal. IMPRESSION: 1. Stable moderate nonspecific cerebral white matter disease, which likely represents chronic small v essel ischemic disease. Reviewed, dictated and finalized at location E. IMPRESSION: 1. Stable moderate nonspecific cerebral white matter disease, which likely repr esents chronic small vessel ischemic disease.
--- NOTE | ~2024-03-26 | XR_ITS ---
EXAMINATION: XR femur RT min 2V DATE: 03/26/2024 10:06 INDICATION: Right thigh pain. Fall. TECHNIQUE: 2 views of right femur on 4 radiographs were obtained. COMPARISON: None. FINDINGS: There is lumbar dextroscoliosis and severe spondylosis. No fracture. There is moderate righ t hip osteoarthritis. There is mild right knee osteoarthritis. No knee joint effusion. IMPRESSION: 1. Polyarticular osteoarthritis. Reviewed, dictated and finalized at location E.
[2024-03-26 07:34] VITALS: BP 158/70; PULSE 63; RESP 22; TEMP 36.4; O2SAT 100
--- NOTE | 2024-03-26 07:34 | ECG_ITS ---
Test Date: 2024-03-26 07:40:41 Measurements Intervals [place] Rate: 61 P: 40 MA: 123 QRS: -12 QRSD: 100 T: 73 QT: 427 QTc: 433 Interpretive Statements SINUS RHYTHM No previous ECG available for comparison Electronically Signed On 03-26-2024 13:49:38 CDT by Conrad Vazquez M.D.
--- NOTE | 2024-03-26 09:23 | ED.FALL ---
HPI - Fall General Chief Complaint: Fall Stated Complaint: Fall Time Seen by Provider: 03/26/24 08:34 Source: patient and RN notes reviewed Mode of arrival: EMS Limitations: dementia History of Present Illness HPI Narrative: Patient presents after report of a ground level fall. She resides at [facility]. It is reported that patient struck her head. She initially reports dizziness. She had complained in triage of pain at in her right femur. When asked about her leg pain, she rubs her left leg and then says her right leg hurts as well and points in the same area on the left side. She has a skin tear of her left elbow. Patient A&O x2 which is reportedly her baseline. She denies loss of concsiousness. No head or neck pain. Not on anticoagulation per patient and none reported but no medication list from facility. When asked about the fall, patient states she doesn't know why exactly, might have tripped but she states I just stumbled a few times. Related Data Home Medications Medication Instructions Recorded Confirmed dapagliflozin propanediol 10 mg 10 mg PO DAILY 05/12/22 11/24/23 tablet (Farxiga) furosemide 20 mg tablet (Lasix) 20 mg PO DAILY 05/12/22 11/24/23 glipizide 2.5 mg tablet, extended 2.5 mg PO DAILY 05/12/22 11/24/23 release 24 hr losartan 50 mg tablet 50 mg PO DAILY 05/12/22 11/24/23 acetaminophen 500 mg tablet 1,000 mg PO Q6H PRN Pain 10/09/23 11/24/23 (Acetaminophen Extra Strength) amlodipine 10 mg tablet 10 mg PO DAILY 10/09/23 11/24/23 atorvastatin 10 mg tablet 10 mg PO DAILY 10/09/23 11/24/23 fluoxetine 20 mg capsule 20 mg PO DAILY 10/09/23 11/24/23 Allergies Allergy/AdvReac Type Severity Reaction Status Date / Time Penicillins Allergy Unknown Verified 03/26/24 07:46 [facility] Past Medical History Medical History Depression Hyperlipidemia Hypertension Peripheral neuropathy Type 2 diabetes mellitus Surgical History Surgical History History of tonsillectomy Family History Family History Other Cardiovascular disease Social History Social History Smoking status: Never smoker Alcohol intake: never Substance use: never Do You Feel Safe in your Home?: Yes Lack of Transportation: No Lack of Food: Never True Current Housing: I Have Housing Concerned About Future Housing: No Difficulty Paying Gas/Electric Bills: No Difficulty Paying for Meds: No Currently Unemployed: No Education: Master's Degree or Higher Difficulty w/ Childcare or Family Care: No Additional living arrangements comments: [place] Spiritual care concerns: No Exam Narrative: GENERAL: Well-appearing, well-nourished, and in no acute distress. Gown is barely on patient who does not seem bothered by this. HEAD: Normocephalic, atraumatic. EYES: Non injected, non icteric ENT: Nares clear, no rhinorrhea or epistaxis. NECK: Supple. CHEST: Speaking in full sentences. No respiratory distress. HEART: Regular rate and rhythm. . ABDOMEN: Soft, nondistended. EXTREMITIES: Normal range of motion. No edema. No crepitus with palpation of bilateral thighs. SKIN: Warm, dry. Skin tear left elbow, already cleaned/dressed. No ecchymosis or erythema at elbow or bilateral thighs. NEURO: No focal deficits. Alert and oriented to self but not to health history details. . PSYCH: Normal mood and affect. Course Vital Signs Vital signs: Vital Signs Temperature 97.5 F L 03/26/24 07:34 Pulse Rate 63 03/26/24 07:34 Respiratory Rate 22 H 03/26/24 07:34 Blood Pressure 158/70 H 03/26/24 07:34 Pulse Oximetry 100 03/26/24 07:34 Oxygen Delivery Room Air 03/26/24 07:34 Temperature 97.5 F L 03/26/24 11:19 Pulse Rate 64 03/26/24 11:19 Respiratory Rate 19 03/26/24 11:19
[2024-03-26 09:45] VITALS: BP 151/74; PULSE 65; RESP 14; O2SAT 100
[2024-03-26] MEDS: ACETAMINOPHEN 500 MG TABLET 1000 MG PO (11:10)
[2024-03-26 11:19] VITALS: BP 177/65; PULSE 64; RESP 19; TEMP 36.4; O2SAT 94
== END 2024-03-26 11:19 ==
PROVIDERS: Emergency Provider Student in an Organized Health Care Education/Training Program; PCP Internal Medicine
DX: S09.90XA Unspecified injury of head, initial encounter (principal); S51.012A Laceration without foreign body of left elbow, initial encounter; M79.605 Pain in left leg; M79.604 Pain in right leg; M16.0 Bilateral primary osteoarthritis of hip; M17.0 Bilateral primary osteoarthritis of knee; M47.812 Spondylosis without myelopathy or radiculopathy, cervical region; I10 Essential (primary) hypertension; E78.5 Hyperlipidemia, unspecified; E11.42 Type 2 diabetes mellitus with diabetic polyneuropathy; Z79.899 Other long term (current) drug therapy; Z79.890 Hormone replacement therapy; R90.82 White matter disease, unspecified; W01.0XXA Fall on same level from slipping, tripping and stumbling without subsequent striking against object, initial encounter
CPT/HCPCS: 70450; 72125; 73552; 93005; 99284; A9270

== ENCOUNTER 2024-06-03 05:09 | Emergency (ER) | payer OTHER, SELFPAY ==
--- NOTE | ~2024-06-03 | CT_ITS ---
EXAMINATION: CT brain wo con DATE: 06/03/2024 05:51 INDICATION: Status post fall. Head injury. TECHNIQUE: Computed tomography (CT) of the abdomen and pelvis was performed without intravenous contr ast. The dose-length product was 1362.00 mGy-cm. Automated exposure control and iterative reconstruct ion technique were employed. COMPARISON: CT dated 03/26/2024. FINDINGS: There is right frontal scalp hematoma. Generalized atrophy. There are scattered mild perive ntricular and subcortical white matter changes, most likely related to small vessel ischemic disease (microangiopathy). No acute intracranial hemorrhage, infarction, mass or mass effect. There is intrac ranial atherosclerosis. Minimal mucosal thickening in the paranasal sinuses. Mastoids are pneumatized . No depressed skull fractures. IMPRESSION: 1. No acute intracranial abnormality. Reviewed, dictated and finalized at location B.
[2024-06-03 05:12] VITALS: BP 142/62; PULSE 67; RESP 16; TEMP 36.6; O2SAT 100
--- NOTE | 2024-06-03 05:27 | ED.FALL ---
HPI - Fall General Chief Complaint: Fall Stated Complaint: fall Time Seen by Provider: 06/03/24 05:16 Source: patient Mode of arrival: EMS Limitations: no limitations History of Present Illness HPI Narrative: 84-year-old here for fall out of bed. Rule out of her bed and landed on the ground when she was asleep. Struck her head. No LOC. only complaining of slight headache on the right frontal region where she struck the ground. Related Data Home Medications Medication Instructions Recorded Confirmed dapagliflozin propanediol 10 mg 10 mg PO DAILY 05/12/22 11/24/23 tablet (Farxiga) furosemide 20 mg tablet (Lasix) 20 mg PO DAILY 05/12/22 11/24/23 glipizide 2.5 mg tablet, extended 2.5 mg PO DAILY 05/12/22 11/24/23 release 24 hr losartan 50 mg tablet 50 mg PO DAILY 05/12/22 11/24/23 acetaminophen 500 mg tablet 1,000 mg PO Q6H PRN Pain 10/09/23 11/24/23 (Acetaminophen Extra Strength) amlodipine 10 mg tablet 10 mg PO DAILY 10/09/23 11/24/23 atorvastatin 10 mg tablet 10 mg PO DAILY 10/09/23 11/24/23 fluoxetine 20 mg capsule 20 mg PO DAILY 10/09/23 11/24/23 Allergies Allergy/AdvReac Type Severity Reaction Status Date / Time Penicillins Allergy Unknown Verified 06/03/24 05:18 Review of Systems Review of Systems: All systems reviewed & are unremarkable except as noted in HPI and below PMFSH Past Medical History Medical History Depression Hyperlipidemia Hypertension Peripheral neuropathy Type 2 diabetes mellitus Surgical History Surgical History History of tonsillectomy Family History Family History Other Cardiovascular disease Social History Social History Smoking status: Never smoker Alcohol intake: never Substance use: never Do You Feel Safe in your Home?: Yes Lack of Transportation: No Lack of Food: Never True Current Housing: I Have Housing Concerned About Future Housing: No Difficulty Paying Gas/Electric Bills: No Difficulty Paying for Meds: No Currently Unemployed: No Education: Master's Degree or Higher Difficulty w/ Childcare or Family Care: No Additional living arrangements comments: [place] Spiritual care concerns: No Exam Narrative: Constitutional: Generally well appearing, no acute distress Head: Small hematoma and contusion rate eyebrow/forehead. Eyes: Pupils equal, round, and reactive to light. Neck: Supple, no tracheal deviation, no JVD. ENMT: Mucous membranes moist Cardiovascular: S1, S2 auscultated. No murmurs, rubs, or gallops. No S3/S4. Normal Distal pulses. No peripheral edema. Respiratory: Lung sounds equal. No wheezes, rales, or rhonchi. Gastrointestinal: Abdomen was soft and non-tender. Non-distended. No rebound or guarding. Genitourinary: Deferred Musculoskeletal: Normal muscle tone and bulk. No obvious deformities or tenderness over extremities. Pelvis stable. Skin: No rashes. Neurological: Strength 5/5 in extremities. Cranial nerves I-XII grossly intact. Distal sensation intact. Mental Status: Awake, alert and oriented x3. Follows commands Course Vital Signs Vital signs: Vital Signs Temperature 36.6 C 06/03/24 05:12 Pulse Rate 67 06/03/24 05:12 Respiratory Rate 16 06/03/24 05:12 Blood Pressure 142/62 H 06/03/24 05:12 Pulse Oximetry 100 06/03/24 05:12 Oxygen Delivery Room Air 06/03/24 05:12 Temperature 36.6 C 06/03/24 05:12 Pulse Rate 67 06/03/24 05:12 Respiratory Rate 16 06/03/24 05:12 Blood Pressure 142/62 H 06/03/24 05:12 Pulse Oximetry 100 06/03/24 05:12 Oxygen Delivery Room Air 06/03/24 05:12 MDM - Fall MDM Narrative Medical decision making narrative: Well-appearing 84 year you for accidental will will for bed or sleep. Head injury but no LOC.
[2024-06-03 06:38] VITALS: BP 132/86; PULSE 62; RESP 16; O2SAT 100
[2024-06-03 07:13] VITALS: BP 134/56; PULSE 68; RESP 15; O2SAT 100
== END 2024-06-03 08:37 ==
PROVIDERS: Emergency Provider Emergency Medicine; PCP Internal Medicine
DX: S00.11XA Contusion of right eyelid and periocular area, initial encounter (principal); I10 Essential (primary) hypertension; E78.5 Hyperlipidemia, unspecified; E11.42 Type 2 diabetes mellitus with diabetic polyneuropathy; F32.A Depression, unspecified; Z79.84 Long term (current) use of oral hypoglycemic drugs; Z79.899 Other long term (current) drug therapy; W06.XXXA Fall from bed, initial encounter
CPT/HCPCS: 70450; 99284

== ENCOUNTER 2024-06-07 12:21 | Outpatient (CLI) | payer OTHER, SELFPAY ==
--- NOTE | ~2024-06-07 | XR_ITS ---
XR hand RT min 3V Ordering provider: Nyla Arauz History: . CONTUSION OF R HAND . Comparison: None. FINDINGS: BONES: No definite acute fracture or dislocation. Small bony fragment seen anterior to the radius in the lateral view. Acute or old fracture cannot be excluded. Osteopenia of the bones. JOINT SPACES: Narrowing of the proximal and distal interphalangeal joints. SOFT TISSUES: Normal. IMPRESSION: No definite acute osseous abnormality right hand. Small bony fragment seen anterior to the radius in the lateral view which may be acute or chronic fracture. Polyarticular osteoarthritic changes. Reviewed, dictated and finalized at location A. IMPRESSION: No definite acute osseous abnormality right hand. Small bony fragment seen ante rior to the radius in the lateral view which may be acute or chronic fracture. Polyarticular osteoarthritic changes.
== END 2024-06-07 12:22 | disposition home or self-care (01) ==
PROVIDERS: PCP Internal Medicine
DX: S60.221D Contusion of right hand, subsequent encounter (principal); X58.XXXD Exposure to other specified factors, subsequent encounter; M19.041 Primary osteoarthritis, right hand
CPT/HCPCS: 73130

== ENCOUNTER 2024-07-18 14:51 | Emergency (ER) | payer OTHER, SELFPAY ==
--- NOTE | ~2024-07-18 | XR_ITS ---
EXAMINATION: XR knee RT 3V DATE: 07/18/2024 16:11 INDICATION: Fall. TECHNIQUE: 3 views of right knee were obtained. COMPARISON: Right femur radiographs 03/26/2024 FINDINGS: Alignment is normal. No fracture. There is mild tricompartmental osteoarthritis. No knee césar int effusion. IMPRESSION: 1. Mild right knee osteoarthritis. Reviewed, dictated and finalized at location A. TAL PRODUCER
--- NOTE | ~2024-07-18 | CT_ITS ---
EXAMINATION: CT cervical spine wo con DATE: 07/18/2024 15:36 INDICATION: Neck injury. Fall. TECHNIQUE: Computed tomography (CT) of the cervical spine was performed without intravenous contrast. Automated exposure control and iterative reconstruction technique were employed. The dose-length pro duct was 498.07 mGy-cm. COMPARISON: CT cervical spine 03/26/2024 FINDINGS: Alignment is normal. Vertebral body heights are normal. There is mildly decreased disc heig ht at C3-C4 and C4-C5 and severely decreased disc height at C5-C6 and C6-C7. The following disc level s are specifically discussed: C2-C3: There is no uncovertebral joint osteoarthritis. There is severe bilateral facet joint osteoart hritis. There is no neural foraminal stenosis. There is no central canal stenosis. C3-C4: There is severe right and mild left uncovertebral joint osteoarthritis. There is severe bilate ral facet joint osteoarthritis. There is mild bilateral neural foraminal stenosis. There is mild cent ral canal stenosis. C4-C5: There is mild bilateral uncovertebral joint osteoarthritis. There is mild right and severe lef t facet joint osteoarthritis. There is no neural foraminal stenosis. There is mild central canal sten osis. C5-C6: There is severe bilateral uncovertebral joint osteoarthritis. There is mild right and moderate left facet joint osteoarthritis. There is mild bilateral neural foraminal stenosis. There is mild ce ntral canal stenosis. C6-C7: There is severe bilateral uncovertebral joint osteoarthritis. There is mild right and moderate left facet joint osteoarthritis. There is mild bilateral neural foraminal stenosis. There is mild ce ntral canal stenosis. C7-T1: There is no uncovertebral joint osteoarthritis. There is severe bilateral facet joint osteoart hritis. There is mild bilateral neural foraminal stenosis. There is no central canal stenosis. IMPRESSION: 1. No fracture. 2. Severe cervical spondylosis. Reviewed, dictated and finalized at location A. TRUCTION CHECKER
--- NOTE | ~2024-07-18 | XR_ITS ---
EXAMINATION: XR hand RT min 3V DATE: 07/18/2024 16:11 INDICATION: Right hand injury. Fall. TECHNIQUE: 3 views of right hand were obtained. COMPARISON: Right hand radiographs 06/07/2024 FINDINGS: Alignment is normal. No fracture. Osteopenia is noted. There is mild osteoarthritis of seco nd-fifth distal interphalangeal joints. IMPRESSION: 1. Mild polyarticular osteoarthritis. Reviewed, dictated and finalized at location A. R PACKING EXAMINER
--- NOTE | ~2024-07-18 | CT_ITS ---
CT brain wo con Ordering provider: Yesica Galvan MD History: 84 years Female with . fall . Comparison: June 03, 2024 Technique: CT of the head without contrast. Radiation reduction technique utilized.The dose-length pr oduct was 681 mGy-cm. FINDINGS: BRAIN PARENCHYMA AND CSF SPACES: Mild leukoaraiosis and diffuse cortical atrophy. Mild atheromatous d isease. No midline shift, mass effect or hemorrhage. The brain parenchyma and CSF spaces are otherwi se normal. VISUALIZED PARANASAL SINUSES: Well aerated. MASTOIDS: Well aerated. BONES: The bones appear intact. SOFT TISSUES: Right frontal scalp hematoma is seen. Otherwise, Visualized nasopharynx is normal. Supe rficial soft tissues are normal. IMPRESSION: No acute intracranial findings. Reviewed, dictated and finalized at location A. OPERATIONS INTERN
[2024-07-18 14:54] VITALS: BP 128/50; PULSE 70; RESP 20; TEMP 36.6; O2SAT 96
[2024-07-18 15:00] VITALS: BP 122/59; PULSE 72; RESP 18; O2SAT 99
[2024-07-18 16:24] VITALS: BP 131/90; PULSE 68; RESP 20; O2SAT 100
--- NOTE | 2024-07-18 16:33 | ED.FALL ---
HPI - Fall General Chief Complaint: Fall Stated Complaint: FALL Time Seen by Provider: 07/18/24 14:54 History of Present Illness HPI Narrative: 84-year-old female presenting after a fall. Coming from a nursing facility. States that she was sleeping in bed when she rolled out of bed and hit her head. She complains of right knee pain. Related Data Home Medications Medication Instructions Recorded Confirmed dapagliflozin propanediol 10 mg 10 mg PO DAILY 05/12/22 11/24/23 tablet (Farxiga) furosemide 20 mg tablet (Lasix) 20 mg PO DAILY 05/12/22 11/24/23 glipizide 2.5 mg tablet, extended 2.5 mg PO DAILY 05/12/22 11/24/23 release 24 hr losartan 50 mg tablet 50 mg PO DAILY 05/12/22 11/24/23 acetaminophen 500 mg tablet 1,000 mg PO Q6H PRN Pain 10/09/23 11/24/23 (Acetaminophen Extra Strength) amlodipine 10 mg tablet 10 mg PO DAILY 10/09/23 11/24/23 atorvastatin 10 mg tablet 10 mg PO DAILY 10/09/23 11/24/23 fluoxetine 20 mg capsule 20 mg PO DAILY 10/09/23 11/24/23 Allergies Allergy/AdvReac Type Severity Reaction Status Date / Time Penicillins Allergy Unknown Verified 06/03/24 05:18 Review of Systems Review of Systems: All systems reviewed & are unremarkable except as noted in HPI and below PMFSH Past Medical History Medical History Depression Hyperlipidemia Hypertension Peripheral neuropathy Type 2 diabetes mellitus Surgical History Surgical History History of tonsillectomy Family History Family History Other Cardiovascular disease Social History Social History Smoking status: Never smoker Alcohol intake: never Substance use: never Do You Feel Safe in your Home?: Yes Lack of Transportation: No Lack of Food: Never True Current Housing: I Have Housing Concerned About Future Housing: No Difficulty Paying Gas/Electric Bills: No Difficulty Paying for Meds: No Currently Unemployed: No Education: Master's Degree or Higher Difficulty w/ Childcare or Family Care: No Additional living arrangements comments: [place] Spiritual care concerns: No Exam Narrative: GENERAL: Well-appearing, In no acute distress, pleasant cooperative HEAD: Normocephalic, +R frontal hematoma EYES: PERRLA and EOMI. ENT: Mucous membranes moist. NECK: Supple. CHEST: No respiratory distress. HEART: Regular rate and rhythm ABDOMEN: Soft, nontender, nondistended EXTREMITIES: Normal range of motion. SKIN: Warm, dry, superficial abrasions to R knee NEURO: Alert and oriented x3. PSYCH: Normal mood and affect. Course Vital Signs Vital signs: Vital Signs Temperature 97.8 F 07/18/24 14:54 Pulse Rate 70 07/18/24 14:54 Respiratory Rate 20 07/18/24 14:54 Blood Pressure 128/50 L 07/18/24 14:54 Pulse Oximetry 96 07/18/24 14:54 Oxygen Delivery Room Air 07/18/24 14:54 Temperature 97.8 F 07/18/24 14:54 Pulse Rate 68 07/18/24 16:24 Respiratory Rate 20 07/18/24 16:24 Blood Pressure 131/90 07/18/24 16:24 Pulse Oximetry 100 07/18/24 16:24 Oxygen Delivery Room Air 07/18/24 14:54 MDM - Fall MDM Narrative Medical decision making narrative: 84-year-old female presenting after a fall. Vitals stable. Exam remarkable for the above. Imaging is negative for acute injuries. Patient really denies complaints to me. Tylenol for pain, discussed appropriate supportive care and follow-up. Appropriate return precautions given. Discharged stable condition. Imaging Data Radiologist's impression: ITS Impressions Head CT 07/18/24 15:41 IMPRESSION: No acute intracranial findings. Cervical Spine CT 07/18/24 15:46 IMPRESSION: 1. No fracture. 2. Severe cervical spondylosis. Hand X-Ray 07/18/24 16:12 IMPRESSION: 1. Mild polyarticular osteoarthritis. Knee X-Ray 07/18/24 16:14 IMPRESSION: 1. Mild right knee osteoarthritis. Critical Care Time Critical Care Time Critical Care Time: No Discharge Plan Discharge Clinical Impression: Fall, Traumatic hematoma of forehead, Abrasion Patient Disposition: Home, Self-Care Condition: Stable Instructions: Antibiotic Form, Head Injury (ED), Abrasion (ED) Additional Instructions: the imaging today shows no acute injuries. Use Tylenol for pain. Follow-up with your PCP. If your symptoms worsen or other concerning symptoms arise, please return to the ER. Prescriptions: No Action losartan 50 mg Tablet 50 mg PO DAILY glipizide 2.5 mg Tablet Extended Release 24hr 2.5 mg PO DAILY furosemide [Lasix] 20 mg Tablet 20 mg PO DAILY dapagliflozin propanediol [Farxiga] 10 mg Tablet 10 mg PO DAILY acetaminophen 500 mg capsule 1,000 mg PO Q6H PRN (Reason: pain) Qty: 20 0RF atorvastatin 10 mg tablet 10 mg PO DAILY acetaminophen [Acetaminophen Extra Strength] 500 mg Tablet 1,000 mg PO Q6H PRN (Reason: Pain) amlodipine 10 mg tablet 10 mg PO DAILY fluoxetine 20 mg capsule 20 mg PO DAILY tamsulosin [Flomax] 0.4 mg capsule 0.4 mg PO DAILY Qty: 10 0RF doxycycline hyclate 100 mg capsule 100 mg PO BID 7 Days Qty: 14 0RF Follow-up/Referrals: Gina,Matthieu Clark MD [Primary Care Provider] -
[2024-07-18] MEDS: ACETAMINOPHEN 500 MG TABLET 1000 MG PO (16:50)
[2024-07-18 16:54] VITALS: BP 133/58; PULSE 57; RESP 18; O2SAT 100
== END 2024-07-18 17:22 | disposition home or self-care (01) ==
PROVIDERS: Emergency Provider Emergency Medicine; PCP Internal Medicine
DX: S00.83XA Contusion of other part of head, initial encounter (principal); S80.211A Abrasion, right knee, initial encounter; F32.A Depression, unspecified; E78.5 Hyperlipidemia, unspecified; I10 Essential (primary) hypertension; E11.9 Type 2 diabetes mellitus without complications; W06.XXXA Fall from bed, initial encounter
CPT/HCPCS: 70450; 72125; 73130; 73562; 99284; A9270

== ENCOUNTER 2024-07-19 00:36 | Emergency (ER) | payer OTHER, SELFPAY ==
--- NOTE | ~2024-07-19 | XR_ITS ---
AP view of the pelvis and AP and lateral views of the right hip Clinical history: Pain Findings: No acute fracture or dislocation is seen. Osseous alignment is anatomic. Bilateral hip and SI joint spaces are preserved. Soft tissues are unremarkable. Impression: No significant abnormality is seen. Reviewed, dictated and finalized at [facility]. ASSEMBLER Impression: No significant abnormality is seen.
--- NOTE | ~2024-07-19 | CT_ITS ---
CT head without contrast Indication: Status post fall COMPARISON: 07/18/2024 Technique: Serial scans were obtained through the brain without the administration of contrast. Dose reduction technique was used on this scan by utilizing automated exposure control and iterative recon struction technique. The dose-length product (DLP) was 756.67 mGy-cm. Findings: There is no evidence of intracranial hemorrhage, mass lesion, or acute infarct. The ventri cles and subarachnoid spaces are dilated, consistent with mild atrophy. Low attenuation regions are seen within the periventricular white matter bilaterally, likely representing changes from chronic mi crovascular ischemic disease. There is no evidence of edema, mass effect or midline shift. The visu alized paranasal sinuses and mastoid air cells are clear. Very large acute hematoma present in the sc alp at the right forehead extending to the right periorbital region. Impression: No intracranial hemorrhage, mass, or acute infarct. Atrophy and chronic white matter changes, as above. Large scalp hematoma at the right forehead region extending to the right periorbital region. Reviewed, dictated and finalized at location . RMEDIATE TEACHER Impression: No intracranial hemorrhage, mass, or acute infarct. Atrophy and chronic white matter changes, as above. Large scalp hematoma at the right forehead region extending to the right perior bital region.
--- NOTE | ~2024-07-19 | CT_ITS ---
Noncontrast CT scan of the lumbar spine CLINICAL HISTORY: Back pain, status post fall TECHNIQUE: Axial noncontrast imaging of the lumbar spine was performed. Sagittal and coronal reformat sebastian images were constructed. Dose reduction technique was used on this scan by utilizing automated ex posure control and iterative reconstruction technique. The dose-length product (DLP) was 1435.03 mGy- cm. FINDINGS: No acute fracture seen. There is minimal grade 1 anterolisthesis of L3 over L4, likely customer program specialist samuel. At L1-L2, there is severe degenerative disc narrowing. There is mild disc bulge and moderate facet ar thropathy. There is probable mild central canal stenosis. There is probable moderate bilateral neural foraminal narrowing. At L2-L3, there is severe degenerative disc narrowing. Disc bulge and facet arthropathy result in sev ere spinal canal stenosis/thecal sac compression. There is severe left neural foraminal narrowing, an d mild right neural foraminal narrowing. At L3-L4, there is severe degenerative disc narrowing. Disc bulge and facet arthropathy result in sev ere spinal canal stenosis/thecal sac compression. There is severe bilateral neural foraminal narrowin g. At L4-L5, there is severe degenerative disc narrowing. Disc bulge and facet arthropathy result in sev ere spinal canal stenosis/thecal sac compression. There is severe bilateral neural foraminal compromi se. At L5-S1, there is severe degenerative disc narrowing. There is advanced facet arthropathy. No lucretia central canal stenosis. There is severe right neural foraminal narrowing, and mild to moderate left n eural foraminal narrowing. Paravertebral soft tissues are unremarkable. Impression: No acute, posttraumatic abnormality. Severe multilevel degenerative spondylosis, as detailed above. Reviewed, dictated and finalized at [facility]. CARVER Impression: No acute, posttraumatic abnormality. Severe multilevel degenerative spondylosis, as detailed above.
--- NOTE | ~2024-07-19 | CT_ITS ---
CT Facial Bones and Cervical Spine Clinical Indication: Trauma Technique: Contiguous axial scans were obtained through the facial bones and cervical spine followed by coronal and sagittal reconstructions. Dose reduction technique was used on this scan by utilizing automated exposure control and iterative reconstruction technique. The dose-length product (DLP) was 656.13 mGy-cm. Findings: CT facial bones: No fractures are identified. The visualized paranasal sinuses are clear. Intraorbita l soft tissues appear normal. There is a very large acute superficial hematoma in the scalp at the ri ght forehead extending to the midline and into the right periorbital region. CT cervical spine: No fractures or subluxation. There are extensive anterior bridging osteophytes ex tending from C3 through C6. There is advanced degenerative disc narrowing at C5-C6 and C6-C7. There i s mild degenerative disc change at the upper cervical spine. Moderate facet arthropathy present throu ghout the cervical spine. There is central disc bulge at C2-C3, without lucretia canal stenosis or cord compression. There is central disc bulge at C3-C4, resolving possible mild central canal stenosis. Th ere is bilateral neural foraminal narrowing at C5-C6, with disc osteophyte complex present. There is moderate central canal stenosis and possible mild cord compression. There is bilateral neural foramin al narrowing at C6-C7, with disc osteophyte complex and mild canal stenosis. No prevertebral soft tis stanislaw swelling. Impression: No fracture is seen in the facial bones. Very large acute hematoma in the scalp at the right forehead extending to the midline and right perio rbital region. No fracture or subluxation of the cervical spine. Degenerative spondylosis, as above. Reviewed, dictated and finalized at location M. TRICAL SUPERVISOR Impression: No fracture is seen in the facial bones. Very large acute hematoma in the scalp at the right forehead extending to the m idline and right periorbital region. No fracture or subluxation of the cervical spine. Degenerative spondylosis, as above.
[2024-07-19 00:41] VITALS: BP 141/59; PULSE 62; RESP 19; TEMP 36.7; O2SAT 98
--- NOTE | 2024-07-19 03:08 | ED.GENADULT ---
HPI - General Adult General Chief complaint: Fall Stated complaint: EYE SWELLING & HEAD PAIN S/P FALL STRIKING HEAD. Time Seen by Provider: 07/19/24 01:34 History of Present Illness HPI narrative: Patient is a 84-year-old female who presents emergency department with chief complaint of head injury. The patient reports he was going to the restroom fell hit her right forehead. The patient reports that she has swelling and a small abrasion present to the forehead. Related Data Home Medications Medication Instructions Recorded Confirmed dapagliflozin propanediol 10 mg 10 mg PO DAILY 05/12/22 11/24/23 tablet (Farxiga) furosemide 20 mg tablet (Lasix) 20 mg PO DAILY 05/12/22 11/24/23 glipizide 2.5 mg tablet, extended 2.5 mg PO DAILY 05/12/22 11/24/23 release 24 hr losartan 50 mg tablet 50 mg PO DAILY 05/12/22 11/24/23 acetaminophen 500 mg tablet 1,000 mg PO Q6H PRN Pain 10/09/23 11/24/23 (Acetaminophen Extra Strength) amlodipine 10 mg tablet 10 mg PO DAILY 10/09/23 11/24/23 atorvastatin 10 mg tablet 10 mg PO DAILY 10/09/23 11/24/23 fluoxetine 20 mg capsule 20 mg PO DAILY 10/09/23 11/24/23 Allergies Allergy/AdvReac Type Severity Reaction Status Date / Time Penicillins Allergy Unknown Verified 06/03/24 05:18 Review of Systems Review of Systems: A 10 system review of systems was completed on the patient and is negative except for what is stated in the HPI. Nursing and ancillary documentation was reviewed. [facility] Past Medical History Medical History Depression Hyperlipidemia Hypertension Peripheral neuropathy Type 2 diabetes mellitus Surgical History Surgical History History of tonsillectomy Family History Family History Other Cardiovascular disease Social History Social History Smoking status: Never smoker Alcohol intake: never Substance use: never Do You Feel Safe in your Home?: Yes Lack of Transportation: No Lack of Food: Never True Current Housing: I Have Housing Concerned About Future Housing: No Difficulty Paying Gas/Electric Bills: No Difficulty Paying for Meds: No Currently Unemployed: No Education: Master's Degree or Higher Difficulty w/ Childcare or Family Care: No Additional living arrangements comments: [place] Spiritual care concerns: No Exam Narrative: GENERAL: Well-appearing, well-nourished, and in no acute distress. HEAD: Normocephalic, large contusion present to the right orbit area small abrasion present. EYES: PERRLA and EOMI. ENT: Nares clear, no rhinorrhea or epistaxis. Mucous membranes moist. NECK: Supple. CHEST: Clear to auscultation. No respiratory distress. HEART: Regular rate and rhythm. No murmur heard. Normal peripheral pulses. ABDOMEN: Soft, nontender, nondistended, normal active bowel sounds. EXTREMITIES: Normal range of motion tenderness to palpation the right hip. No edema. SKIN: Warm, dry, no rash. NEURO: No focal deficits. Alert and oriented x3. PSYCH: Normal mood and affect. Course Vital Signs Vital signs: Vital Signs Temperature 36.7 C 07/19/24 00:41 Pulse Rate 62 07/19/24 00:41 Respiratory Rate 19 07/19/24 00:41 Blood Pressure 141/59 H 07/19/24 00:41 Pulse Oximetry 98 07/19/24 00:41 Oxygen Delivery Room Air 07/19/24 00:41 Temperature 36.7 C 07/19/24 00:41 Pulse Rate 62 07/19/24 00:41 Respiratory Rate 19 07/19/24 00:41 Blood Pressure 141/59 H 07/19/24 00:41 Pulse Oximetry 98 07/19/24 00:41 Oxygen Delivery Room Air 07/19/24 00:41 Medical Decision Making [facility] Narrative Medical decision making narrative: Differential diagnosis includes intracranial hemorrhage, facial fracture, cervical spine fracture, hip fracture, lumbar fracture Plain film x-ray of the right hip showed no evidence of fracture CT lumbar spine showed no evidence of lumbar spine fracture. CT head facial bones and C-spine showed no evidence of intracranial process or fracture or contusion there was evidence of a forehead contusion on the CT Vital Signs Vital Signs: Vital Signs Temperature 36.7 C 07/19/24 00:41 Pulse Rate 62 07/19/24 00:41 Respiratory Rate 19 07/19/24 00:41 Blood Pressure 141/59 H 07/19/24 00:41 Pulse Oximetry 98 07/19/24 00:41 Oxygen Delivery Room Air 07/19/24 00:41 Temperature 36.7 C 07/19/24 00:41 Pulse Rate 62 07/19/24 00:41 Respiratory Rate 19 07/19/24 00:41 Blood Pressure 141/59 H 07/19/24 00:41 Pulse Oximetry 98 07/19/24 00:41 Oxygen Delivery Room Air 07/19/24 00:41 Discharge Plan Discharge Clinical Impression: Fall, Head injury, Contusion of face, Abrasion of forehead, Contusion of right hip Patient Disposition: NH Long-Term/Asst Living Condition: Stable Instructions: Antibiotic Form, Head Injury (ED), Contusion in Adults (ED), Abrasion (ED) Prescriptions: No Action losartan 50 mg Tablet 50 mg PO DAILY glipizide 2.5 mg Tablet Extended Release 24hr 2.5 mg PO DAILY furosemide [Lasix] 20 mg Tablet 20 mg PO DAILY dapagliflozin propanediol [Farxiga] 10 mg Tablet 10 mg PO DAILY acetaminophen 500 mg capsule 1,000 mg PO Q6H PRN (Reason: pain) Qty: 20 0RF atorvastatin 10 mg tablet 10 mg PO DAILY acetaminophen [Acetaminophen Extra Strength] 500 mg Tablet 1,000 mg PO Q6H PRN (Reason: Pain) amlodipine 10 mg tablet 10 mg PO DAILY fluoxetine 20 mg capsule 20 mg PO DAILY tamsulosin [Flomax] 0.4 mg capsule 0.4 mg PO DAILY Qty: 10 0RF doxycycline hyclate 100 mg capsule 100 mg PO BID 7 Days Qty: 14 0RF Follow-up/Referrals: Gina,Matthieu Clark MD [Primary Care Provider] - Time of Disposition: 03:10
[2024-07-19 03:10] VITALS: BP 118/65; PULSE 50; RESP 12; TEMP 36.4; O2SAT 97
[2024-07-19] MEDS: TETANUS,DIPHTHERIA,AC PERTUSSIS ADULT (0.5 ML) BOOSTRIX IM (03:14)
== END 2024-07-19 03:26 ==
PROVIDERS: Emergency Provider Emergency Medicine; PCP Internal Medicine
DX: S00.83XA Contusion of other part of head, initial encounter (principal); S70.01XA Contusion of right hip, initial encounter; S00.81XA Abrasion of other part of head, initial encounter; Z23 Encounter for immunization; I10 Essential (primary) hypertension; E78.5 Hyperlipidemia, unspecified; E11.42 Type 2 diabetes mellitus with diabetic polyneuropathy; F32.A Depression, unspecified; Z79.84 Long term (current) use of oral hypoglycemic drugs; Z79.899 Other long term (current) drug therapy; M47.816 Spondylosis without myelopathy or radiculopathy, lumbar region; M47.812 Spondylosis without myelopathy or radiculopathy, cervical region; W06.XXXA Fall from bed, initial encounter
CPT/HCPCS: 70450; 70486; 72125; 72131; 73502; 90471; 90715; 99284

== ENCOUNTER 2024-07-29 01:41 | Emergency (ER) | payer OTHER, SELFPAY ==
[2024-07-28 23:36] VITALS: BP 151/60; PULSE 63; RESP 18; TEMP 36.9; O2SAT 100
--- NOTE | 2024-07-28 23:43 | ED.FALL ---
HPI - Fall General Chief Complaint: Fall Stated Complaint: R HAND LAC, EYE PAIN S/P FALL History of Present Illness HPI Narrative: 84-year-old female with a past medical history of dementia, CHF, diabetes, hypertension frequent falls. Was recently seen here about 10 days prior for a fall. Today she presents via EMS for a ground level fall while trying to get up to go the bathroom. She states he tripped over her right ankle and fell forward, tried to collect herself finally ending onto her hand. She has a small abrasion to the right side of her hand in a 3 cm nonbleeding laceration that appears superficial near her pinky. She has old bruising over her maxillary facial structures in the right side of her head which is previously documented from previous falls during previous 2 ER visits. Endorsing hindering and again today but no new evidence of trauma. No step-offs deformities of the back, no loss of consciousness or blood thinner use. Patient states that she is having some pain in her hand and head but otherwise no complaints and feels well. Denies any chest pain, shortness a breath, ataxia, weakness, neuropathy, numbness in the arms or legs or back pain. Related Data Home Medications ?Medication ?Instructions ?Recorded ?Confirmed ?Last Taken ?Type dapagliflozin propanediol 10 mg 10 mg PO DAILY 05/12/22 11/24/23 1 Day Ago History tablet (Farxiga) ~10/08/23 furosemide 20 mg tablet (Lasix) 20 mg PO DAILY 05/12/22 11/24/23 1 Day Ago History ~10/08/23 glipizide 2.5 mg tablet, extended 2.5 mg PO DAILY 05/12/22 11/24/23 1 Day Ago History release 24 hr ~10/08/23 losartan 50 mg tablet 50 mg PO DAILY 05/12/22 11/24/23 1 Day Ago History ~10/08/23 acetaminophen 500 mg tablet 1,000 mg PO Q6H PRN Pain 10/09/23 11/24/23 Unknown History (Acetaminophen Extra Strength) amlodipine 10 mg tablet 10 mg PO DAILY 10/09/23 11/24/23 1 Day Ago History ~10/08/23 atorvastatin 10 mg tablet 10 mg PO DAILY 10/09/23 11/24/23 1 Day Ago History ~10/08/23 fluoxetine 20 mg capsule 20 mg PO DAILY 10/09/23 11/24/23 1 Day Ago History ~10/08/23 Allergies Allergy/AdvReac Type Severity Reaction Status Date / Time Penicillins Allergy Unknown Verified 07/28/24 23:36 Review of Systems Review of Systems: As reviewed above in [facility] Past Medical History Medical History Type 2 diabetes mellitus Depression Hyperlipidemia Peripheral neuropathy Hypertension Surgical History Surgical History History of tonsillectomy Family History Family History Other Cardiovascular disease Social History Social History Smoking status: Never smoker Alcohol intake: never Substance use: never Do You Feel Safe in your Home?: Yes Lack of Transportation: No Lack of Food: Never True Current Housing: I Have Housing Concerned About Future Housing: No Difficulty Paying Gas/Electric Bills: No Difficulty Paying for Meds: No Currently Unemployed: No Education: Master's Degree or Higher Difficulty w/ Childcare or Family Care: No Additional living arrangements comments: [facility] Spiritual care concerns: No Exam Narrative: GENERAL: [Well-appearing, well-nourished, and in no acute distress.] HEAD: Old superficial contusions and abrasions over the right-sided orbital area. No open her obvious deformities. Nasal bridge without any tenderness deformity. Various shades of bruising over the right side of her face. EYES: [PERRLA and EOMI.] ENT: Nares clear, no rhinorrhea or epistaxis. Mucous membranes moist. NECK: Supple. No cervical spinal tenderness or deformity. Full range of motion of the head neck. CHEST: [Clear to auscultation. No respiratory distress.] HEART: [Regular rate and rhythm]. No murmur heard. [Normal peripheral pulses.] ABDOMEN: [Soft, nondistended], [nontender], [No rigidity or guarding] EXTREMITIES: Normal range of motion. 1+ pedal edema. Full range of motion of the hand with the injury and laceration, able to rn radiology, flex and extend each digit without any limitation. SKIN: Superficial scattered abrasions over the right side of her face and right-sided arm. She has a 3 cm superficial laceration to the ulnar aspect of her right hand near the pinky without any active bleeding or wound dehiscence involving the musculature or any exposed tendons. NEURO: [No focal deficits]. Alert and oriented [x3.] PSYCH: [Normal mood and affect.] Course Vital Signs Vital signs: Vital Signs Temperature 36.9 C 07/28/24 23:36 Pulse Rate 63 07/28/24 23:36 Respiratory Rate 18 07/28/24 23:36 Blood Pressure 151/60 H 07/28/24 23:36 Pulse Oximetry 100 07/28/24 23:36 Oxygen Delivery Room Air 07/28/24 23:36 Temperature 36.9 C 07/28/24 23:36 Pulse Rate 63 07/28/24 23:36 Respiratory Rate 18 07/28/24 23:36 Blood Pressure 151/60 H 07/28/24 23:36 Pulse Oximetry 100 07/28/24 23:36 Oxygen Delivery Room Air 07/28/24 23:36 Procedures Laceration Laceration 1: Date: 07/29/24 Time: 01:34 Site: hand Side (If applicable): right Size (cm): 3 Description: linear, flap and clean Depth: simple, single layer Local Anesthetic: none Pre-repair: wound explored and irrigated ====== Skin Level ====== Skin layer closed with: dermabond and steri strips ====== Subcutaneous Layer ====== ====== Muscle Layer ====== ====== Tendon Layer ====== Dressing: gauze and bandage MDM - Fall MDM Narrative Medical decision making narrative: 84-year-old female presenting from her care facility for a ground level fall. She states she was going to have to use the restroom and fell and tripped over her foot. She landed onto her right hand and hit the right side of her face but she has previous bruising this area from her recent falls during her previous 2 ER visits. No obvious or new injuries to her head her neck and she does have a new abrasion and laceration to the ulnar aspect of her right hand which is documented above. Very superficial in nature and does not require sutures especially with thin friable skin in this area, will be able to be repaired with Dermabond and wound care wrapping. Patient status is already up-to-date according to the patient. She is not taking blood thinners suspicion for intracranial pathology is low although her risk factors do include her advanced age. CT of the head, CT cervical spine maxillary facial structures for this time to rule out any intracranial pathology, step-offs fractures or subluxations. Low suspicion for any nasal bone fractures. She was provided Tylenol for analgesia and re-evaluated frequently. Patient is awake alert at her baseline mentation and denies any acute complaints aside from some mild pain or hand and head. X-rays of the right hand were independently reviewed by myself and I do not appreciate any significant obvious fractures dislocations or any acute process on the skin. Bony structures appear intact, patient has no significant pain in this region and full range of motion of extremity. Overlying laceration repaired with Dermabond and Steri-Strips as described Above in the procedure note. Stat read by Teleradiology of the CT head facial structures and cervical spine showed no acute process. The head has no intracranial hemorrhage or significant mass effect or midline shift no skull fractures. There is soft tissue hyperdensities secondary to the contusions she has over the right side of her face but is chronic and similar compared to previous scan. No new traumatic area of injury. No radiopaque foreign bodies or subcutaneous emphysema. CT cervical spine shows no acute osseous traumatic injury or traumatic malalignment. Orbits and globes well maintained no so bones are intact, mandible intact, overall no acute process. Patient is stable for discharge back to facility at this time given her unremarkable workup and repair for wound. Medical Records Attestation: I reviewed the patient's medical records. Imaging Data Attestation: I personally reviewed and interpreted this imaging study as follows: My impression: Hand x-ray without any fracture Radiologist's impression: Stat read by Teleradiology of the CT head facial structures and cervical spine showed no acute process. The head has no intracranial hemorrhage or significant mass effect or midline shift no skull fractures. There is soft tissue hyperdensities secondary to the contusions she has over the right side of her face but is chronic and similar compared to previous scan. No new traumatic area of injury. No radiopaque foreign bodies or subcutaneous emphysema. CT cervical spine shows no acute osseous traumatic injury or traumatic malalignment. Orbits and globes well maintained no so bones are intact, mandible intact, overall no acute process. Discharge Plan Discharge Clinical Impression: CHI (closed head injury), Hand injury, Hand laceration Patient Disposition: Home, Self-Care Condition: Stable Instructions: Antibiotic Form, Laceration (ED), Concussion (ED), Head Injury (ED), Contusion in Adults (ED) Additional Instructions: Follow-up with your regular doctor, return with any new or worsening concerns at any time. You can continue taking Tylenol and ibuprofen for any aches or pain Patient Language: Swedish Prescriptions: No Action losartan 50 mg Tablet 50 mg PO DAILY glipizide 2.5 mg Tablet Extended Release 24hr 2.5 mg PO DAILY furosemide [Lasix] 20 mg Tablet 20 mg PO DAILY dapagliflozin propanediol [Farxiga] 10 mg Tablet 10 mg PO DAILY acetaminophen 500 mg capsule 1,000 mg PO Q6H PRN (Reason: pain) Qty: 20 0RF atorvastatin 10 mg tablet 10 mg PO DAILY acetaminophen [Acetaminophen Extra Strength] 500 mg Tablet 1,000 mg PO Q6H PRN (Reason: Pain) amlodipine 10 mg tablet 10 mg PO DAILY fluoxetine 20 mg capsule 20 mg PO DAILY tamsulosin [Flomax] 0.4 mg capsule 0.4 mg PO DAILY Qty: 10 0RF doxycycline hyclate 100 mg capsule 100 mg PO BID 7 Days Qty: 14 0RF Follow-up/Referrals: Gina,Matthieu Clark MD [Primary Care Provider] - Time of Disposition: 01:39
[2024-07-28] MEDS: ACETAMINOPHEN 500 MG TABLET 1000 MG PO (23:51)
--- NOTE | 2024-07-28 23:53 | PC.NURSE ---
radiology at bedside at this time.
--- NOTE | ~2024-07-29 | CT_ITS ---
EXAMINATION: CT brain wo con DATE: 07/29/2024 00:19 INDICATION: Fall with closed head injury TECHNIQUE: Computed tomography (CT) of the head was performed without intravenous contrast. Sagittal and coronal reconstructions were performed. The mA was adjusted according to patient size. Iterative reconstruction technique was employed. The dose-length product was 1362.00 mGy-cm. COMPARISON: head CT dated 07/19/2024 FINDINGS: Persistent large now subacute right frontal scalp hematoma. No fracture. No acute intracranial hemorr anshu, acute infarction or abnormal extra axial fluid collection. There is mild scattered white matter hypoattenuation consistent with chronic small vessel ischemic disease. Symmetric prominence of the s ulci and ventricles consistent with mild to moderate age-appropriate diffuse cerebral volume loss. Ve ntricles are normal and symmetric. No mass/mass effect. Changes of bilateral intraocular lens replace ment. The orbits and mastoid air cells are normal. Mild mucoperiosteal thickening the paranasal sinus es. IMPRESSION: 1. Persistent large subacute right frontal scalp hematoma. No acute fracture or acute intracranial pr ocess. 2. Age-related changes including mild to moderate diffuse volume loss and mild scattered white matter hypoattenuation consistent with chronic small vessel ischemic disease. Reviewed, dictated and finalized at location A. TECHNICIAN IMPRESSION: 1. Persistent large subacute right frontal scalp hematoma. No acute fracture or acute intracranial process. 2. Age-related changes including mild to moderate diffuse volume loss and mild scattered white matter hypoattenuation consistent with chronic small vessel isc hemic disease.
--- NOTE | ~2024-07-29 | XR_ITS ---
EXAMINATION: XR hand RT 2V DATE: 07/29/2024 00:24 INDICATION: Ulnar-sided right hand injury TECHNIQUE: Posteroanterior, oblique and lateral views of the right hand were obtained. COMPARISON: None. FINDINGS: Diffuse osteopenia. Bone alignment is normal. No fracture. Mild polyarticular osteoarthritis througho ut the right hand and wrist most prominent at the distal radioulnar joint and radial aspect of the ca rpus and multiple predominantly distal interphalangeal joints. Mild soft tissue swelling about the allen nd and wrist with radial sided predominance. IMPRESSION: 1. 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 No acute osseous abnormality. Reviewed, dictated and finalized at location A. MERIZATION OVEN OPERATOR IMPRESSION: 1. Diffuse osteopenia mild polyarticular osteoarthritis throughout the right allen nd and wrist. No acute osseous abnormality.
--- NOTE | ~2024-07-29 | CT_ITS ---
EXAMINATION: 1. CT facial & cervical spine wo DATE: 07/29/2024 00:20 INDICATION: Fall with closed head injury TECHNIQUE: 1. Computed tomography (CT) of the maxillofacial region and of the cervical spine were performed with out intravenous contrast. Sagittal and coronal reconstructions of both regions were obtained. Automat ed exposure control and iterative reconstruction technique were employed. The dose-length product was 424.08 mGy-cm. COMPARISON: 07/19/2024 and 07/18/2024 FINDINGS: Maxillofacial CT: Persistent now subacute large right frontal scalp hematoma. No calvarial fracture. No maxillofacial f ractures. Specifically the nasal bones, zygomatic arches, mandible and carr of the orbits and parana sheila sinuses are all intact. Changes of bilateral intraocular lens replacement. Mild mucosal thickenin g the paranasal sinuses. The mastoid air cells and middle ear cavities are clear. Scattered dental di sease. Cervical spine CT: Mild cervical levocurvature. Vertebral body heights are normal. No fracture. Severe cervical spondylo sis. See recent CT on 07/18/2024 for level by analysis. Visualized cervical soft tissues are unremarka ble. IMPRESSION: 1. No maxillofacial fracture or acute osseous abnormality in the cervical spine. 2. Severe cervical spondylosis. 3. Minimal change in a large now subacute right frontal scalp hematoma. Reviewed, dictated and finalized at location A. CARE COORDINATOR IMPRESSION: 1. No maxillofacial fracture or acute osseous abnormality in the cervical spine . 2. Severe cervical spondylosis. 3. Minimal change in a large now subacute right frontal scalp hematoma.
--- OUTSIDE RECORDS SUMMARY | 2024-08-01 16:30 | XMS_ITS | Clinical Summary ---
Author Organization [facility] Address [address] [place] [address]. [place] [address] [place] [address] Care Team Providers Care Turf Manager Name Role Phone Matthieu Fuentes MD Primary Care Provider [phone] Allergies No known active allergies Medications No known medications Encounters Date Type Department Care Team Description 05/05/2024 6:32 AM CDT - 05/05/2024 12:[address] [facility] [place] [address] Sonia Li MD Fall Discharge Disposition: Retirement Facility 05/05/2024 Travel from Last 3 Months Immunizations Name Administration Dates Next Due Tdap (Boostrix) 05/05/2024 Social History Tobacco Use Types Packs/Day Years Used Date Smoking Tobacco: Never Smokeless Tobacco: Never Tobacco Cessation:Counseling Given: Not Answered Alcohol Use Standard Drinks/Week Comments Never 0 (1 standard drink = 0.6 oz pur e alcohol) Comments Unknown Sex and Gender Information Value Date Recorded Sex Assigned at Not on file Legal Sex Female 10:17 AM CDT Gender Identity Not on file Sexual Orientation Not on file Last Filed Vital Signs Vital Sign Reading Time Taken Comments Blood Pressure 116/77 05/05/2024 12:33 PM CDT Pulse 58 05/05/2024 12:33 PM CDT Temperature 36.6 ??C (97.9 ??F) 05/05/2024 6:39 AM CD T Respiratory Rate 15 05/05/2024 12:33 PM CDT Oxygen Saturation 98% 05/05/2024 12:33 PM CDT Inhaled Oxygen Concentration - - Weight 94.9 kg (209 lb 3.5 oz) 05/05/2024 6:39 A M CDT Height 157.5 cm (5' 2 ) 05/05/2024 6:39 AM CDT Body Mass Index 38.27 05/05/2024 6:39 AM CDT Plan of Treatment Health Maintenance Due Date Last Done Comments Zoster Vaccines (1 of 2) 1989 RSV Immunization or 60+ Years (1 - 1-dose 60+ series) 1999 Pneumococcal Vaccine: 65+ Years (2 of 2 - PPSV23 or PCV20) 12/04/2016 12/05/2015 COVID-19 Vaccine ( season) 2024 Influenza Adult (#1) 2024 05/25/2023, 04/27/2019, 05/21/2016, Additional history exists DTaP, Tdap and Td Vaccines (4 - Td or Tdap) 05/05/2034 05/05/2024, 11/28/2023, 08/28/2013, Additional history exists Meningococcal Vaccine Aged Out No samia marcia eligible based on patient's age to complete this topic RSV Immunizations Under 20 Months Aged Out No longer eligible based on patient's age to complete this topic Procedures Procedure Name Priority Date/Time Associated Diagnosis Comments XR ANKLE LT M3V STAT 05/05/2024 10:57 AM CDT ECG 12-LEAD Routine 05/05/2024 8:37 AM CDT XR TIBIA+FIBULA LT 2V STAT 05/05/2024 8:32 AM CDT XR FEMUR LT 2V STAT 05/05/2024 8:32 AM CDT XR PELVIS 1 OR 2 VIEWS STAT 8:32 AM CDT XR CHEST PORTABLE STAT 05/05/2024 8:3 2 AM CDT COMPREHENSIVE METABOLIC PANEL STAT 05/05/2024 8:30 AM CDT CBC W/DIFF AUTOMATED STAT 05/05/2024 8:[address] CERV SPINE WO CON STAT 05/05/2024 7:[address] HEAD WO CON STAT 05/05/2024 7:51 AM CDT HC URINALYSIS AUTO W/O MICRO STAT 05/05/2024 7:40 AM CDT from Last 3 Months Results * XR ANKLE LT M3V (05/05/2024 10:57 AM CDT) Anatomical Region Laterality Modality Ankle Radiographic Jocelyn ging 05/05/2024 10:5 8 AM CDT Impressions 05/05/2024 10:59 AM CDT IMPRESSION: ===== 1. ??Scattered degenerative changes with no convincing acute osseous abnormality. 2. ??Diffuse demineralization. Referred By: ?? Interpreted By: Edgar Simms MD, 05/05/2024 10:58 AM Narrative 05/05/2024 10:59 AM CDT [place] [address] Examination: 3 views left ankle Exam Date/Time: 05/05/2024 9:27 AM Reason For Exam: ??follow up on tib/fib imaging, fall ?? Ground-level fall this morning. Comparison: None Technique: AP, oblique, and lateral views of the left ankle were obtained. Findings: Ankle mortise is intact. ??Posterior and inferior calcaneal enthesophytes. ??Midfoot degenerative spurring. ??Scattered soft tissue vascular calcifications. ??No joint effusion at the ankle. ??No convincing acute fracture or dislocation. ??No radiopaque foreign bodies. ??Diffuse demineralization. ===== Procedure Note Edgar Simms MD - 05/05/2024 [facility] [address] [place], [place] [address] Examination: 3 views left ankle Exam Date/Time: 05/05/2024 9:27 AM Reason For Exam: follow up on tib/fib imaging, fall Ground-level fall this morning. Comparison: None Technique: AP, oblique, and lateral views of the left ankle wereobtained. Findings: Ankle mortise is intact. Posterior and inferior calcanealenthesophytes. Midfoot degenerative spurring. Scattered soft tissuevascular calcifications. No joint effusion at the ankle. No convincingacute fracture or dislocation. No radiopaque foreign bodies. Diffusedemineralization. ===== IMPRESSION: ===== 1. Scattered degenerative changes with no convincing acute osseousabnormality. 2. Diffuse demineralization. Referred By: Interpreted By: Edgar Simms MD, 05/05/2024 10:58 AM us Sonia Li MD GENERAL IMAGING Final Result * ECG 12 lead (05/05/2024 8:37 AM CDT) 05/05/2024 8:37 AM CDT Narrative [facility] - 05/06/2024 2:11 PM CDT ?[facility] ? [address] [facility] ? Test Date: ?2024-05-05 Pat Name: ? ABILIO GOODMAN ? Department: ?? 41 ? Room: ? [id number] Gender: ? Female ? 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 [id number] : ?1940 ? Requested By: SONIA LI Order Number: [id number] ? Reading MD: ?? Shiyam Satwani ? Measurements Intervals ?Hester ? Rate: ? 54 ? P: ?10 KS: ? 144 ?QRS: ?-22 QRSD: ? 96 ? T: ?139 QT: ? 435 ? QTc: ?413 ? Interpretive Statements Poor data quality, interpretation may be adversely affected. SINUS BRADYCARDIA BORDERLINE LEFT AXIS DEVIATION ??[QRS AXIS < -20] Unabel to comment on ST changes because of baseline artifact. No previous ECG available for comparison Procedure Note Juan M Rojas MD - 05/06/2024 [facility] [address] Test Date: 2024-05-05 Pat Name: ABILIO GOODMAN Department: 41 Room: [place] [address] Gender: Female Lead Business Systems Analyst: [id number] : 1940 Requested By: SONIA LI Order Number: [id number] Reading MD: Juan M Rojas Measurements Intervals Hester Rate: 54 P: 10 KS: 144 QRS: -22 QRSD: 96 T: 139 QT: 435 QTc: 413 Interpretive Statements Poor data quality, interpretation may be adversely affected. SINUS BRADYCARDIA BORDERLINE LEFT AXIS DEVIATION [QRS AXIS < -20] Unabel to comment on ST changes because of baseline artifact. No previous ECG available for comparison us Sonia Li MD ECG ORDERABLES Final Result [facility] RAD * XR TIBIA+FIBULA LT 2V (05/05/2024 8:32 AM CDT) Anatomical Region Laterality Modality TibFib Radiographic Jocelyn ging 05/05/2024 8:49 AM CDT Impressions 05/05/2024 8:56 AM CDT IMPRESSION: 1. ??Subtle cortical regularity distal fibula. ??Consider ankle x-ray if clinically indicated. Referred By: ?? Interpreted By: Jun Jade MD, 05/05/2024 8:49 AM Narrative 05/05/2024 8:56 AM CDT [place] [address] Examination: 2 views left tibia/fibula Exam date/time: 05/05/2024 8:12 AM Reason For Exam: ??fall ?? Comparison: None Technique: AP and lateral radiographs of the left tibia/fibula were obtained Findings: Subtle cortical regularity in the distal fibula is seen. ??No definite fractures noted. Vascular calcifications are noted. Findings are suspicious for atherosclerotic change.. ??Spurring from the calcaneus is noted. Procedure Note Jun Jade MD - 05/05/2024 [place] [address] Examination: 2 views left tibia/fibula Exam date/time: 05/05/2024 8:12 AM Reason For Exam: fall Comparison: None Technique: AP and lateral radiographs of the left tibia/fibula wereobtained Findings: Subtle cortical regularity in the distal fibula is seen. Nodefinite fractures noted. Vascular calcifications are noted. Findings are suspicious foratherosclerotic change.. Spurring from the calcaneus is noted. IMPRESSION: 1. Subtle cortical regularity distal fibula. Consider ankle x-ray ifclinically indicated. Referred By: Interpreted By: Jun Jade MD, 05/05/2024 8:49 AM us Sonia Li MD GENERAL IMAGING Final Result * XR PELVIS 1 OR 2 VIEWS (05/05/2024 8:32 AM CDT) Anatomical Region Laterality Modality Pelvis Radiographic Jocelyn ging 05/05/2024 8:46 AM CDT Impressions 05/05/2024 8:57 AM CDT IMPRESSION:===== ?? Mild osteoarthritis the hips bilaterally. No definite osseous fracture seen. ??Exam however somewhat limited. ??Follow-up or CT scan could be considered. Referred By: ?? Interpreted By: Jun Jade MD, 05/05/2024 8:46 AM Narrative 05/05/2024 8:57 AM CDT [place] [address] EXAMINATION: 2 views left femur and AP pelvis and AP pelvis [id number] EXAM DATE/TIME: 05/05/2024 8:12 AM REASON FOR EXAM: ??fall ?? COMPARISON: None TECHNIQUE: AP and lateral radiographs of the left femur were obtained FINDINGS: Examination is somewhat limited secondary patient body habitus. ??No obvious fracture is seen. ??Minimal joint space narrowing in the hips bilaterally is seen. ??Subtle spurring from the femoral heads is noted. Spurring the inferior lumbar spine and sacroiliac joints bilaterally seen. ??Osteoarthritis of the knee is also suspected. Vascular calcifications are noted. Findings are suspicious for atherosclerotic change. ===== Procedure Note Jun Jade MD - 05/05/2024 [place] [address] EXAMINATION: 2 views left femur and AP pelvis and AP pelvis [id number] EXAM DATE/TIME: 05/05/2024 8:12 AM REASON FOR EXAM: fall COMPARISON: None TECHNIQUE: AP and lateral radiographs of the left femur were obtained FINDINGS: Examination is somewhat limited secondary patient body habitus.No obvious fracture is seen. Minimal joint space narrowing in the hipsbilaterally is seen. Subtle spurring from the femoral heads is noted. Spurring the inferior lumbar spine and sacroiliac joints bilaterally seen.Osteoarthritis of the knee is also suspected. Vascular calcifications are noted. Findings are suspicious foratherosclerotic change. ===== IMPRESSION:===== Mild osteoarthritis the hips bilaterally. No definite osseous fracture seen. Exam however somewhat limited.Follow-up or CT scan could be considered. Referred By: Interpreted By: Jun Jade MD, 05/05/2024 8:46 AM Sonia Li MD GENERAL IMAGING Final Result * XR FEMUR LT 2V (05/05/2024 8:32 AM CDT) Anatomical Region Laterality Modality Femur Radiographic Jocelyn ging 05/05/2024 8:46 AM CDT Impressions 05/05/2024 8:57 AM CDT IMPRESSION:===== ?? Mild osteoarthritis the hips bilaterally. No definite osseous fracture seen. ??Exam however somewhat limited. ??Follow-up or CT scan could be considered. Referred By: ?? Interpreted By: Jun Jade MD, 05/05/2024 8:46 AM Narrative 05/05/2024 8:57 AM CDT [address] [address] EXAMINATION: 2 views left femur and AP pelvis and AP pelvis [id number] EXAM DATE/TIME: 05/05/2024 8:12 AM REASON FOR EXAM: ??fall ?? COMPARISON: None TECHNIQUE: AP and lateral radiographs of the left femur were obtained FINDINGS: Examination is somewhat limited secondary patient body habitus. ??No obvious fracture is seen. ??Minimal joint space narrowing in the hips bilaterally is seen. ??Subtle spurring from the femoral heads is noted. Spurring the inferior lumbar spine and sacroiliac joints bilaterally seen. ??Osteoarthritis of the knee is also suspected. Vascular calcifications are noted. Findings are suspicious for atherosclerotic change. ===== Procedure Note Jun Jade MD - 05/05/[address] [address] EXAMINATION: 2 views left femur and AP pelvis and AP pelvis [id number] EXAM DATE/TIME: 05/05/2024 8:12 AM REASON FOR EXAM: fall COMPARISON: None TECHNIQUE: AP and lateral radiographs of the left femur were obtained FINDINGS: Examination is somewhat limited secondary patient body habitus.No obvious fracture is seen. Minimal joint space narrowing in the hipsbilaterally is seen. Subtle spurring from the femoral heads is noted. Spurring the inferior lumbar spine and sacroiliac joints bilaterally seen.Osteoarthritis of the knee is also suspected. Vascular calcifications are noted. Findings are suspicious foratherosclerotic change. ===== IMPRESSION:===== Mild osteoarthritis the hips bilaterally. No definite osseous fracture seen. Exam however somewhat limited.Follow-up or CT scan could be considered. Referred By: Interpreted By: Jun Jade MD, 05/05/2024 8:46 AM Sonia Li MD GENERAL IMAGING Final Result * XR CHEST PORTABLE (05/05/2024 8:32 AM CDT) Anatomical Region Laterality Modality Chest Radiographic Jocelyn ging 05/05/2024 8:45 AM CDT Impressions 05/05/2024 8:46 AM CDT IMPRESSION: ======== ?? 1. ??These mild bilateral atelectasis is seen which limits exam somewhat. Referred By: ?? Interpreted By: Jun Jade MD, 05/05/2024 8:45 AM Narrative 05/05/2024 8:46 AM CDT [facility] [place] [address] Examination: Chest Radiograph, 1 view portable Exam Date/Time: 05/05/2024 8:12 AM Reason For Exam: ??fall ?? Comparison: None Technique: Single portable AP view of the chest. Findings: ??Heart size is normal. Pulmonary vasculature is within normal limits. There is no large pleural effusion or pneumothorax. No focal infiltrate or consolidative change. ??Diffuse mild bilateral atelectasis is seen. ??Calcified inferior right pulmonary nodule is seen. Calcification of the aorta is consistent with atherosclerotic change.. ======== Procedure Note Jun Jade MD - 05/05/2024 [place] [address] Examination: Chest Radiograph, 1 view portable Exam Date/Time: 05/05/2024 8:12 AM Reason For Exam: fall Comparison: None Technique: Single portable AP view of the chest. Findings: Heart size is normal. Pulmonary vasculature is within normallimits. There is no large pleural effusion or pneumothorax. No focalinfiltrate or consolidative change. Diffuse mild bilateral atelectasis isseen. Calcified inferior right pulmonary nodule is seen. Calcification of the aorta is consistent with atherosclerotic change.. ======== IMPRESSION: ======== 1. These mild bilateral atelectasis is seen which limits exam somewhat. Referred By: Interpreted By: Jun Jade MD, 05/05/2024 8:45 AM us Sonia Li MD GENERAL IMAGING Final Result * (ABNORMAL) COMPREHENSIVE METABOLIC PANEL (05/05/2024 8:30 AM CDT) GLUCOSE 108(H) 70 - 99 MG/DL 05/05/2024 9:00 AM T [facility] BUN 27(H) 7 - 18 MG/DL 05/05/2024 9:00 AM T [facility] CREATININE S/P/B 1.14(H) 0.55 - 1.02 MG/DL 05/05/2024 9:00 AM T [facility] SODIUM S/P/B 138 136 - 145 MMOL/L 05/05/2024 9:00 AM T [facility] POTASSIUM S/P/B 4.0 3.5 - 5.1 MMOL/L 05/05/2024 9:00 AM T [facility] CHLORIDE S/P/B 105 97 - 115 MMOL/L 05/05/2024 9:00 AM T [facility] CO2 29.0 21 - 32 MMOL/L 05/05/2024 9:00 AM T [facility] CALCIUM S/P/B 10.0 8.5 - 10.1 MG/DL 05/05/2024 9:00 AM T [facility] BILIRUBIN TOTAL S/P/B 0.6 0.2 - 1.2 MG/DL 05/05/2024 9:00 AM T [facility] Comment: THIS ASSAY IS NOT RECOMMENDED FOR PATIENTS UNDERGOING TREATMENT WITH ELTROMBOPAG DUE TO THE POTENTIAL FOR FALSELY ELEVATED RESULTS. TOTAL PROTEIN S/P/B 7.6 6.4 - 8.2 G/DL 05/05/2024 9:00 AM T [facility] ALBUMIN S/P/B 3.6 3.4 - 5.0 G/DL 05/05/2024 9:00 AM T [facility] AST 22 15 - 37 U/L 05/05/2024 9:00 AM T [facility] ALT 27 14 - 55 U/L 05/05/2024 9:00 AM CDT [facility] ALKALINE PHOSPHATASE S/P/B 114 50 - 136 U/L 05/05/2024 9:00 AM CDT [facility] ANION GAP 4.0 2 - 10 MMOL/L 05/05/2024 9:00 AM CDT [facility] BUN CREATININE RATIO 23.7 6 - 26 05/05/2024 9:00 AM CDT [facility] A/G RATIO 0.9(L) 1.0 - 2.0 RATIO 05/05/2024 9:00 AM CDT [facility] GFR ESTIMATE 47(L) >90 ML/MIN/1.7 3 M2 05/05/2024 9:00 AM CDT [facility] Comment: NOTE: eGFR is not calculated for patients <18 years of age or gender unknown. This is an estimated GFR calculation using the new CKD EPI creatinine equation without race and so does not require a correction factor for race. This estimated GFR should not be used for calculating drug doses. 05/05/2024 8:30 AM CDT Sonia Li MD LABORATORY Final Result [facility] [address] [place] [address], * (ABNORMAL) CBC W/DIFF AUTOMATED (05/05/2024 8:30 AM CDT) WBC 9.51 4.5 - 11.0 x10'3/uL 05/05/2024 8:50 AM CDT [facility] RBC 4.52 4.20 - 5.40 x10'6/uL 05/05/2024 8:50 AM CDT [facility] HGB 14.3 12.0 - 16.0 G/DL 05/05/2024 8:50 AM CDT [facility] HCT 44.0 38.0 - 48.0 % 05/05/2024 8:50 AM CDT [facility] MCV 97.3 81.0 - 99.0 FL 05/05/2024 8:50 AM CDT [facility] MCH 31.6(H) 27.0 - 31.0 PG 05/05/2024 8:50 AM CDT [facility] MCHC 32.5 32.0 - 36.0 G/DL 05/05/2024 8:50 AM CDT [facility] RDW 13.9 11.5 - 14.5 % 05/05/2024 8:50 AM CDT [facility] PLT 280 130 - 400 x10'3/uL 05/05/2024 8:50 AM CDT [facility] MPV 10.2 9.3 - 12.2 FL 05/05/2024 8:50 AM CDT [facility] DIFFERENTIAL TYPE AUTOMATED DIFFERENTIAL 05/05/2024 8:50 AM CDT [facility] NEUTROPHILS % 68.2 % 05/05/2024 8:50 AM CDT [facility] LYMPHOCYTES % 17.4 % 05/05/2024 8:50 AM CDT [facility] MONOCYTES % 10.3 % 05/05/2024 8:50 AM CDT [facility] EOSINOPHILS 3.2 % 05/05/2024 8:50 AM CDT [facility] BASOPHILS 0.5 % 05/05/2024 8:50 AM CDT [facility] IMMATURE GRANS % 0.4 % 05/05/20 8:50 AM CDT [facility] ABS. NEUTROPHILS 6.49 1.80 - 7.70 x10'3/uL 05/05/2024 8:50 AM CDT [facility] ABS. LYMPHOCYTES 1.65 1.00 - 4.80 x10'3/uL 05/05/2024 8:50 AM CDT [facility] ABS. MONOCYTES 0.98(H) 0.24 - 0.86 x10'3/uL 05/05/2024 8:50 AM CDT [facility] ABS. EOSINOPHILS 0.30 0.04 - 0.36 x10'3/uL 05/05/2024 8:50 AM CDT [facility] ABS. BASOPHILS 0.05 0.01 - 0.08 x10'3/uL 05/05/2024 8:50 AM CDT [facility] ABS. IMMATURE GRANULOCYTES 0.04 0.00 - 0.49 x10'3/uL 05/05/2024 8:50 AM CDT [facility] 05/05/2024 8:30 AM CDT Sonia Li MD LABORATORY Final Result [facility] [address] [place] [address], [place] [phone] * CT HEAD WO CON (05/05/2024 7:51 AM CDT) Anatomical Region Laterality Modality Head Computed Tomogra phy 05/05/2024 8:18 AM CDT Impressions 05/05/2024 8:20 AM CDT IMPRESSION: ===== 1. ??No convincing acute intracranial abnormality within limitations of minimal motion artifact. 2. ??Atrophy and small vessel ischemic disease. ??Superimposed acute infarct not excluded. Referred By: ?? Interpreted By: Edgar Simms MD, 05/05/2024 8:18 AM Narrative 05/05/2024 8:20 AM CDT [address] [address] EXAMINATION: CT of the head EXAM DATE/TIME: 05/05/2024 7:41 AM REASON FOR EXAM: ??fall ?? Ground-level fall this morning. ??Abrasions on forehead. COMPARISON: None TECHNIQUE: Axial CT images of the brain are obtained from skull base through vertex without the use of IV contrast agent. ??A dose lowering technique was used for this procedure, which may include, but is not limited to, dose reduction technique, automated exposure control, iterative reconstruction, ALARA (As Low As Reasonably Achievable), or Image Gently techniques. FINDINGS: Minimally motion limited evaluation. ??No acute hemorrhage or large territory infarct. ??Ventricles are moderately enlarged with prominent bilateral sulci indicating moderate parenchymal volume loss. ??There are minimal areas of scattered hypodensities in the periventricular deep white matter which are nonspecific but likely secondary to mild small vessel ischemic disease. ??Benign falcine calcifications. ??Benign basal ganglia calcifications. There are no extra-axial fluid collections. ??There is no mass, mass effect, or midline shift. ??There is no depressed skull fracture. ??Visualized paranasal sinuses and mastoid air cells are grossly clear within limitations of motion artifact. Visualized orbital contents grossly unremarkable. ??Mild hyperostosis frontalis.. ===== Procedure Note Edgar Simms MD - 05/05/[address] [address] EXAMINATION: CT of the head EXAM DATE/TIME: 05/05/2024 7:41 AM REASON FOR EXAM: fall Ground-level fall this morning. Abrasions on forehead. COMPARISON: None TECHNIQUE: Axial CT images of the brain are obtained from skull basethrough vertex without the use of IV contrast agent. A dose loweringtechnique was used for this procedure, which may include, but is notlimited to, dose reduction technique, automated exposure control,iterative reconstruction, ALARA (As Low As Reasonably Achievable), orImage Gently techniques. FINDINGS: Minimally motion limited evaluation. No acute hemorrhage orlarge territory infarct. Ventricles are moderately enlarged withprominent bilateral sulci indicating moderate parenchymal volume loss.There are minimal areas of scattered hypodensities in the periventriculardeep white matter which are nonspecific but likely secondary to mild smallvessel ischemic disease. Benign falcine calcifications. Benign basalganglia calcifications. There are no extra-axial fluid collections. Thereis no mass, mass effect, or midline shift. There is no depressed skullfracture. Visualized paranasal sinuses and mastoid air cells are grosslyclear within limitations of motion artifact. Visualized orbital contentsgrossly unremarkable. Mild hyperostosis frontalis.. ===== IMPRESSION: ===== 1. No convincing acute intracranial abnormality within limitations ofminimal motion artifact. 2. Atrophy and small vessel ischemic disease. Superimposed acute infarctnot excluded. Referred By: Interpreted By: Edgar Simms MD, 05/05/2024 8:18 AM us Sonia Li MD CT Final Result * CT CERV SPINE WO CON (05/05/2024 7:51 AM CDT) Anatomical Region Laterality Modality Spine Computed Tomogra phy 05/05/2024 8:19 AM CDT Impressions 05/05/2024 8:27 AM CDT IMPRESSION:===== 1. No acute fracture is demonstrated. 2. Moderate cervical spondylosis with multilevel stenosis. Referred By: ?? Interpreted By: Tod Monge MD, 05/05/2024 8:19 AM Narrative 05/05/2024 8:27 AM CDT [facility] [address] [place], [place] [address] EXAMINATION: CT Cervical Spine without contrast. EXAM DATE/TIME: 05/05/2024 7:41 AM REASON FOR EXAM: ??Fall with head injury. ?? COMPARISON: None. TECHNIQUE: Axial CT obtained of the cervical spine without contrast. Multiplanar reconstructions are performed. Automated exposure control was utilized for dose reduction. FINDINGS: Exam is mildly obscured by motion artifact. No acute fracture is demonstrated. Scoliosis convex toward the right in the lower cervical spine. Mildly accentuated cervical lordosis may be related to positioning. Diffuse degenerative changes. Moderate to severe intervertebral disc space narrowing at C5-6 and C6- 7. Associated degenerative endplate irregularity, osteophytes including uncovertebral joint spurs. Milder disc space narrowing at other levels. Diffuse facet joint degenerative changes. Erosion and mild widening of the right C3-4 facet joint noted. The discs and spinal cord are poorly visualized on this exam. Likely chronic posterior disc bulges/protrusions at multiple levels with mild to moderate spinal canal stenosis, greatest at C5-6 and C6-7. Mild to moderate multilevel neural foraminal stenosis, greatest at C6-7. Minimal spondylolisthesis at C7-T1 and some of the upper thoracic levels. Scattered vascular calcifications including carotid artery atherosclerosis. No cervical adenopathy. Minimal opacity in the lung apices is nonspecific. ===== Procedure Note Dierks, Tod Ashby MD - 05/05/[address] [address] EXAMINATION: CT Cervical Spine without contrast. EXAM DATE/TIME: 05/05/2024 7:41 AM REASON FOR EXAM: Fall with head injury. COMPARISON: None. TECHNIQUE: Axial CT obtained of the cervical spine without contrast.Multiplanar reconstructions are performed. Automated exposure control wasutilized for dose reduction. FINDINGS: Exam is mildly obscured by motion artifact. No acute fracture isdemonstrated. Scoliosis convex toward the right in the lower cervicalspine. Mildly accentuated cervical lordosis may be related to positioning.Diffuse degenerative changes. Moderate to severe intervertebral disc spacenarrowing at C5-6 and C6-7. Associated degenerative endplate irregularity,osteophytes including uncovertebral joint spurs. Milder disc spacenarrowing at other levels. Diffuse facet joint degenerative changes.Erosion and mild widening of the right C3-4 facet joint noted. The discsand spinal cord are poorly visualized on this exam. Likely chronicposterior disc bulges/protrusions at multiple levels with mild to moderatespinal canal stenosis, greatest at C5-6 and C6-7. Mild to moderatemultilevel neural foraminal stenosis, greatest at C6-7. Minimalspondylolisthesis at C7-T1 and some of the upper thoracic levels.Scattered vascular calcifications including carotid arteryatherosclerosis. No cervical adenopathy. Minimal opacity in the lungapices is nonspecific. ===== IMPRESSION:===== 1. No acute fracture is demonstrated. 2. Moderate cervical spondylosis with multilevel stenosis. Referred By: Interpreted By: Tod Monge MD, 05/05/2024 8:19 AM Sonia Li MD CT Final Result * (ABNORMAL) URINALYSIS (05/05/2024 7:40 AM CDT) SPECIMEN TYPE URINE CLEAN CATCH 05/05/2024 7:36 AM CDT [facility] COLOR (U) LIGHT YELLOW 05/05/2024 8:46 AM CDT [facility] TRANSPARENCY CLEAR 05/05/2024 8:46 AM CDT [facility] SPECIFIC GRAVITY (U) 1.020 1.001 - 1.030 05/05/2024 8:46 AM CDT [facility] U PH 5.5 5.0 - 9.0 05/05/2024 8:46 AM CDT [facility] LEUKOCYTES (U) NEGATIVE NEGATIVE 05/05/2024 8:46 AM CDT [facility] NITRITES NEGATIVE NEGATIVE 05/05/2024 8:46 AM CDT [facility] PROTEIN RANDOM (U) 20 <30 MG/DL 05/05/2024 8:46 AM CDT [facility] GLUCOSE (U) >1000(A) NORMAL MG/DL 05/05/2024 8:46 AM CDT [facility] KETONES MG/DL (U) NEGATIVE NEGATIVE MG/DL 05/05/2024 8:46 AM CDT [facility] UROBILINOGEN NORMAL NORMAL MG/DL 05/05/2024 8:46 AM CDT [facility] BILIRUBIN (U) NEGATIVE NEGATIVE MG/DL 05/05/2024 8:46 AM CDT [facility] BLOOD (U) NEGATIVE NEGATIVE 05/05/2024 8:46 AM CDT [facility] URINE SPECIMEN OBTAINED BY CLEAN CATCH PROCEDURE / Unknown 05/05/2024 7:40 AM CDT us Sonia Li MD URINE ORDERABLES Final Resul t [facility] [address] [place] [address], from [place] [address] [place] [address] [employer] [facility] Care Teams Turf Manager Relationship Specialty Start Date End Date Matthieu Fuentes MD [address] [place] [id number] PCP - General INTERNAL MEDICINE 05/05/24
--- OUTSIDE RECORDS SUMMARY | 2024-08-01 16:30 | XMS_ITS | Encounter Summary ---
Author Organization [facility] Address [address] [place] [address]. [place], [place] [id number] [place] [id number] Care Team Providers Care Sr Risk Management Consultant Name Role Phone Unavailable Primary Care Provider Unavailabl e Encounter Details Date Type Department Care Team (Late st Contact Info) Description 11/29/2023 [facility] [address], [facility] [address] [place] [phone] Matthieu Fuentes MD [address] [place] [id number] Social History Tobacco Use Types Packs/Day Years Used Date Smoking Tobacco: Never Assessed Comments Unknown Sex and Gender Information Value Date Recorded Sex Assigned at Not on file Legal Sex Female 10:17 AM CDT Gender Identity Not on file Sexual Orientation Not on file documented as of this encounter Plan of Treatment Not on file documented as of this encounter Visit Diagnoses Not on filedocumented in this encounter
--- OUTSIDE RECORDS SUMMARY | 2024-08-01 16:30 | XMS_ITS | Encounter Summary ---
Author Organization [facility] Address [address] [place] [address]. [place], [place] [id number] [place] [id number] Care Team Providers Care Room Service Attendant Name Role Phone Matthieu Fuentes MD Primary Care Provider [phone] Reason for Referral * Imaging (Emergency) - New Request Specialty Diagnoses / Procedures Referred By Contac t Referred To Contact RADIOLOGY Procedures CT CERV SPINE WO Sonia Ding MD [address] [place] [address] Phone: tel: fax: Referral ID Status Reason Start Date Expiration Date V isits Requested Visits Authorized [id number] New Request 05/05/2024 05/05/2025 1 1 * Imaging (Emergency) - New Request Specialty Diagnoses / Procedures Referred By Amanuel rodriguez Referred To Contact RADIOLOGY Procedures CT HEAD WO Sonia Ding MD [address] [place] [address] Phone: tel: fax: Referral ID Status Reason Start Date Expiration Date V isits Requested Visits Authorized [id number] New Request 05/05/2024 05/05/2025 1 1 Reason for Visit * Reason Comments Fall Encounter Details Date Type Department Care Team (Late st Contact Info) Description 05/05/2024 6:32 AM CDT - 05/05/2024 12:36 PM CDT Emergency [facility] Emergency Room [place] [id number] Sonia Li MD [address] [place] [address] [id number] Fall Discharge Disposition: Retirement Facility Social History Tobacco Use Types Packs/Day Years [...] on file documented as of this encounter Last Filed Vital Signs Vital Sign Reading [...] Mass Index 38.27 05/05/2024 6:39 AM CDT documented in this encounter Discharge Instructions * Discharge Instructions* Sonia Li MD - 05/05/2024 11:01 AM CDT You had a fall. You will not be sent home with any prescriptions Please schedule a follow up appointment with your primary care physician within the next 5-7 days Please return to the Emergency Department for any new or worsening concern * Attachments The following attachments cannot be sent through Care Everywhere. * Preventing falls in adults (Gabonese) documented in this encounter ED Notes * Emelia Hansen RN - 05/05/2024 12:40 PM CDT The patient, EMS, and BRYCE Upton at [facility] has been given information regarding their treatment, follow up and concerning symptoms for which they should seek urgent or emergent attention. Ihloreto expressed the the importance of seeking attention should there be any new, or worsening symptoms or persistence of their condition. Report given to EMS and called to BRYCE Upton at [facility] in [facility]. EMS and BRYCE Upton at [facility] verbalized understanding of the discharge instructions. * Poonam Johnson RN - 05/05/2024 6:45 AM CDT Skin tear on L lower leg cleaned with wound cleanser, covered with a nonadherent pad, and wrapped with roll gauze. Patient states she does not remember falling or who called the ambulance. States she did hit her head but did not lose consciousness. Unable to say what month/year it is, able to recall name and birthday, knows she is here for a fall. Provider notified. * Sonia Li MD - 05/05/2024 6:44 AM CDT Chief Complaint Chief Complaint Patient presents with Fall History of Present Illness Patient is an 83-year-old female with past medical history of diabetes, hypertension, depression presenting for fall. She states she went to the bathroom this morning at her assisted living facility and lost balance and fell and hit her head. She states she does fall often. She has an abrasion on her left forehead and on her left tibia and fibula. She states she was able to get herself back up and walk after the fall. Transported by EMS and she is vitally stable. We are not sure her baseline mental status. She denies fevers, chills, nausea vomiting, chest pain or shortness of breath. She has some neck pain. No cough or congestion. No other complaints at this time. Medical History ALLERGIES: Review of patient's allergies indicates: No Known Allergies MEDICATIONS: Prior to Admission medications Not on File PAST MEDICAL HISTORY: Past Medical History: Diagnosis Date Diabetes mellitus ([facility]) PAST SURGICAL HISTORY: History reviewed. No pertinent surgical history. FAMILY HISTORY: No family history on file. SOCIAL HISTORY: Social History Tobacco Use Smoking status: Never Smokeless tobacco: Never Substance Use Topics Alcohol use: Never Drug use: Never Review of Systems Review of Systems Constitutional: Negative for chills and fever. HENT: Negative for congestion and rhinorrhea. Respiratory: Negative for cough and shortness of breath. Cardiovascular: Negative for chest pain. Gastrointestinal: Negative for abdominal pain, blood in stool, constipation, diarrhea, nausea and vomiting. Genitourinary: Negative for difficulty urinating and dysuria. Skin: Positive for wound. Negative for rash. Neurological: Negative for dizziness, syncope and light-headedness. Physical Exam Filed Vitals: 05/05/24 0900 05/05/24 1030 05/05/24 1100 05/05/24 1233 BP: (!) 146/58 116/77 Pulse: (!) 53 (!) 58 Resp: 18 15 Temp: TempSrc: SpO2: 96% 97% 97% 98% Weight: Height: Physical Exam Vitals and nursing note reviewed. Constitutional: General: She is not in acute distress. Appearance: Normal appearance. She is not ill-appearing. HENT: Head: Normocephalic and atraumatic. Comments: Abrasion above left eyebrow, no laceration, no periorbital edema/bruising, no battles sign or racoon eyes Nose: Nose normal. Mouth/Throat: Mouth: Mucous membranes are moist. Pharynx: Oropharynx is clear. Eyes: Extraocular Movements: Extraocular movements intact. Conjunctiva/sclera: Conjunctivae normal. Pupils: Pupils are equal, round, and reactive to light. Cardiovascular: Rate and Rhythm: Normal rate and regular rhythm. Pulmonary: Effort: Pulmonary effort is normal. Breath sounds: Normal breath sounds. Chest: Chest wall: No tenderness. Abdominal: General: Abdomen is flat. There is no distension. Palpations: Abdomen is soft. Tenderness: There is no abdominal tenderness. Musculoskeletal: General: No swelling, tenderness, deformity or signs of injury. Normal range of motion. Comments: Skin tear on LLE, no other open wounds, tender to left femur palpation w/o bruising, no deformities, distally NVI in all extremities, no other wounds identified on extremities Skin: General: Skin is warm and dry. Neurological: General: No focal deficit present. Mental Status: She is alert. Comments: Oriented to self, states it's [facility], cannot state the year, states it is fall Psychiatric: Mood and Affect: Mood normal. Behavior: Behavior normal. 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 : 1940 Requested By: SONIA LI Order Number: [id number] Reading MD: Measurements Intervals [place] Rate: 54 P: 10 WY: 144 QRS: -22 QRSD: 96 T: 139 QT: 435 QTc: 413 Interpretive Statements SINUS BRADYCARDIA BORDERLINE LEFT AXIS DEVIATION [QRS AXIS < -20] MODERATE ST DEPRESSION [0.05+ mV ST DEPRESSION] ABNORMAL QRS-T ANGLE [QRS-T AXIS DIFFERENCE > 60] No previous ECG available for comparison LABORATORY STUDIES: Results for orders placed or performed during the hospital encounter of 05/05/24 CBC W/DIFF AUTOMATED Result Value Ref Range WBC 9.51 4.5 - 11.0 x10'3/uL RBC 4.52 4.20 - 5.40 x10'6/uL HGB 14.3 12.0 - 16.0 G/DL HCT 44.0 38.0 - 48.0 % MCV 97.3 81.0 - 99.0 FL MCH 31.6 (H) 27.0 - 31.0 PG MCHC 32.5 32.0 - 36.0 G/DL RDW 13.9 11.5 - 14.5 % PLT 280 130 - 400 x10'3/uL MPV 10.2 9.3 - 12.2 FL DIFFERENTIAL TYPE AUTOMATED DIFFERENTIAL NEUTROPHILS % 68.2 % LYMPHOCYTES % 17.4 % MONOCYTES % 10.3 % EOSINOPHILS 3.2 % BASOPHILS 0.5 % IMMATURE GRANS % 0.4 % ABS. NEUTROPHILS 6.49 1.80 - 7.70 x10'3/uL ABS. LYMPHOCYTES 1.65 1.00 - 4.80 x10'3/uL ABS. MONOCYTES 0.98 (H) 0.24 - 0.86 x10'3/uL ABS. EOSINOPHILS 0.30 0.04 - 0.36 x10'3/uL ABS. BASOPHILS 0.05 0.01 - 0.08 x10'3/uL ABS. IMMATURE GRANULOCYTES 0.04 0.00 - 0.49 x10'3/uL COMPREHENSIVE METABOLIC PANEL Result Value Ref Range GLUCOSE 108 (H) 70 - 99 MG/DL BUN 27 (H) 7 - 18 MG/DL CREATININE S/P/B 1.14 (H) 0.55 - 1.02 MG/DL SODIUM S/P/B 138 136 - 145 MMOL/L POTASSIUM S/P/B 4.0 3.5 - 5.1 MMOL/L CHLORIDE S/P/B 105 97 - 115 MMOL/L CO2 29.0 21 - 32 MMOL/L CALCIUM S/P/B 10.0 8.5 - 10.1 MG/DL BILIRUBIN TOTAL S/P/B 0.6 0.2 - 1.2 MG/DL TOTAL PROTEIN S/P/B 7.6 6.4 - 8.2 G/DL ALBUMIN S/P/B 3.6 3.4 - 5.0 G/DL AST 22 15 - 37 U/L ALT 27 14 - 55 U/L ALKALINE PHOSPHATASE S/P/B 114 50 - 136 U/L ANION GAP 4.0 2 - 10 MMOL/L BUN CREATININE RATIO 23.7 6 - 26 A/G RATIO 0.9 (L) 1.0 - 2.0 RATIO GFR ESTIMATE 47 (L) >90 ML/MIN/1.73 M2 URINALYSIS Result Value Ref Range Specimen Type URINE CLEAN CATCH COLOR (U) LIGHT YELLOW TRANSPARENCY CLEAR SPECIFIC GRAVITY (U) 1.020 1.001 - 1.030 U PH 5.5 5.0 - 9.0 LEUKOCYTES (U) NEGATIVE NEGATIVE NITRITES NEGATIVE NEGATIVE PROTEIN RANDOM (U) 20 <30 MG/DL GLUCOSE (U) >1000 (A) NORMAL MG/DL KETONES MG/DL (U) NEGATIVE NEGATIVE MG/DL UROBILINOGEN NORMAL NORMAL MG/DL BILIRUBIN (U) NEGATIVE NEGATIVE MG/DL BLOOD (U) NEGATIVE NEGATIVE IMAGING STUDIES XR ANKLE LT M3V Final Result by User, [id number] (05/05 1100) [place] [address] Examination: 3 views left ankle Exam Date/Time: 05/05/2024 9:27 AM Reason For Exam: follow up on tib/fib imaging, fall Ground-level fall this morning. Comparison: None Technique: AP, oblique, and lateral views of the left ankle were obtained. Findings: Ankle mortise is intact. Posterior and inferior calcaneal enthesophytes. Midfoot degenerative spurring. Scattered soft tissue vascular calcifications. No joint effusion at the ankle. No convincing acute fracture or dislocation. No radiopaque foreign bodies. Diffuse demineralization. ===== IMPRESSION: ===== 1. Scattered degenerative changes with no convincing acute osseous abnormality. 2. Diffuse demineralization. Referred By: Interpreted By: Edgar Simms MD, 05/05/2024 10:58 AM XR CHEST PORTABLE Final Result by User, [id number] (05/05 0847) [place] [address] Examination: Chest Radiograph, 1 view portable Exam Date/Time: 05/05/2024 8:12 AM Reason For Exam: fall Comparison: None Technique: Single portable AP view of the chest. Findings: Heart size is normal. Pulmonary vasculature is within normal limits. There is no large pleural effusion or pneumothorax. No focal infiltrate or consolidative change. Diffuse mild bilateral atelectasis is seen. Calcified inferior right pulmonary nodule is seen. Calcification of the aorta is consistent with atherosclerotic change.. ======== IMPRESSION: ======== 1. These mild bilateral atelectasis is seen which limits exam somewhat. Referred By: Interpreted By: Jun Jade MD, 05/05/2024 8:45 AM XR PELVIS 1 OR 2 VIEWS Final Result by User, [id number] (05/05 912) [place] [address] EXAMINATION: 2 views left femur and AP pelvis and AP pelvis [id number] EXAM DATE/TIME: 05/05/2024 8:12 AM REASON FOR EXAM: fall COMPARISON: None TECHNIQUE: AP and lateral radiographs of the left femur were obtained FINDINGS: Examination is somewhat limited secondary patient body habitus. No obvious fracture is seen. Minimal joint space narrowing in the hips bilaterally is seen. Subtle spurring from the femoral heads is noted. Spurring the inferior lumbar spine and sacroiliac joints bilaterally seen. Osteoarthritis of the knee is also suspected. Vascular calcifications are noted. Findings are suspicious for atherosclerotic change. ===== IMPRESSION:===== Mild osteoarthritis the hips bilaterally. No definite osseous fracture seen. Exam however somewhat limited. Follow-up or CT scan could be considered. Referred By: Interpreted By: Jun Jade MD, 05/05/2024 8:46 AM XR FEMUR LT 2V Final Result by User, [id number] (05/05 912) [place] [address] EXAMINATION: 2 views left femur and AP pelvis and AP pelvis [id number] EXAM DATE/TIME: 05/05/2024 8:12 AM REASON FOR EXAM: fall COMPARISON: None TECHNIQUE: AP and lateral radiographs of the left femur were obtained FINDINGS: Examination is somewhat limited secondary patient body habitus. No obvious fracture is seen. Minimal joint space narrowing in the hips bilaterally is seen. Subtle spurring from the femoral heads is noted. Spurring the inferior lumbar spine and sacroiliac joints bilaterally seen. Osteoarthritis of the knee is also suspected. Vascular calcifications are noted. Findings are suspicious for atherosclerotic change. ===== IMPRESSION:===== Mild osteoarthritis the hips bilaterally. No definite osseous fracture seen. Exam however somewhat limited. Follow-up or CT scan could be considered. Referred By: Interpreted By: Jun Jade MD, 05/05/2024 8:46 AM XR TIBIA+FIBULA LT 2V Final Result by User, [id number] (05/05 912) [place] [address] Examination: 2 views left tibia/fibula Exam date/time: 05/05/2024 8:12 AM Reason For Exam: fall Comparison: None Technique: AP and lateral radiographs of the left tibia/fibula were obtained Findings: Subtle cortical regularity in the distal fibula is seen. No definite fractures noted. Vascular calcifications are noted. Findings are suspicious for atherosclerotic change.. Spurring from the calcaneus is noted. IMPRESSION: 1. Subtle cortical regularity distal fibula. Consider ankle x-ray if clinically indicated. Referred By: Interpreted By: Jun Jade MD, 05/05/2024 8:[address] HEAD WO CON Final Result by User, [id number] (05/05 821) [place] [address] EXAMINATION: CT of the head EXAM DATE/TIME: 05/05/2024 7:41 AM REASON FOR EXAM: fall Ground-level fall this morning. Abrasions on forehead. COMPARISON: None TECHNIQUE: Axial CT images of the brain are obtained from skull base through vertex without the use of IV contrast agent. A dose lowering technique was used for this procedure, which may include, but is not limited to, dose reduction technique, automated exposure control, iterative reconstruction, ALARA (As Low As Reasonably Achievable), or Image Gently techniques. FINDINGS: Minimally motion limited evaluation. No acute hemorrhage or large territory infarct. Ventricles are moderately enlarged with prominent bilateral sulci indicating moderate parenchymal volume loss. There are minimal areas of scattered hypodensities in the periventricular deep white matter which are nonspecific but likely secondary to mild small vessel ischemic disease. Benign falcine calcifications. Benign basal ganglia calcifications. There are no extra-axial fluid collections. There is no mass, mass effect, or midline shift. There is no depressed skull fracture. Visualized paranasal sinuses and mastoid air cells are grossly clear within limitations of motion artifact. Visualized orbital contents grossly unremarkable. Mild hyperostosis frontalis.. ===== IMPRESSION: ===== 1. No convincing acute intracranial abnormality within limitations of minimal motion artifact. 2. Atrophy and small vessel ischemic disease. Superimposed acute infarct not excluded. Referred By: Interpreted By: Edgar Simms MD, 05/05/2024 8:[address] CERV SPINE WO CON Final Result by User, [id number] (05/05 829) [address] [address] EXAMINATION: CT Cervical Spine without contrast. EXAM [...] intervertebral disc space narrowing at C5-6 and C6-7. Associated degenerative endplate irregularity, osteophytes including uncovertebral [...] in the lung apices is nonspecific. ===== IMPRESSION:===== 1. No acute fracture is demonstrated. 2. Moderate cervical spondylosis with multilevel stenosis. Referred By: Interpreted By: Tod Monge MD, 05/05/2024 8:19 AM ED Course / Medical Decision Making Patient is an 83-year-old female presenting with fall as described above. Unknown baseline. She is hemodynamically stable in no distress. Obtaining scanning of CT head and neck to rule out injury. She is nontender to palpation of the thoracic and lumbar spine. Airway is intact bilaterally. She has an abrasion on her head, no other bruising or hematoma or skull fracture identified on lamination. Will obtain chest x-ray and pelvic x-ray to rule out traumatic injury as well as x-ray imaging of the left femur and tib-fib. Obtaining blood work to assess for infection, anemia, renal or hepatic impairment electrolyte derangement, assessing urine for infection. Will have staff speak with snf to make sure patient is her baseline mental status. She is clinically well- appearing in no distress. Medical Decision Making ED Course as of 05/05/24 1628 WedMay 05, 2024 0822 Cth - 1. No convincing acute intracranial abnormality within limitations of minimal motion artifact. 2. Atrophy and small vessel ischemic disease. Superimposed acute infarct not excluded. No acute focal findings on examination, RN calling to discuss mental status w/ assisted living facility [JS] 0829 No acute finding on ct cspine [JS] 0839 EKG done at 0837 rate 54 bpm, sinus, bradycardia, no ectopy; no stemi; no priors to compare to; no chest pain, she is vitally stable [JS] 0849 Cxr mild bilateral atelectasis [JS] 0932 Left tib/fib xray - Subtle cortical regularity distal fibula. Consider ankle x-ray if clinically indicated; patient is not a reliable historian, will obtain ankle xray. [JS] 1011 Spoke w/ patient's snf: She can usually can tell who she is, hold a conversation. Notoriented to time/date usually. Pleasantly confused, uses a wheelchair, and can turn with assistance. At baseline [JS] ED Course User Index [JS] Sonia Li MD Clinical Impression Fall (Primary) Head injury Leg pain CT imaging w/o acute fracture, work up otherwise unremarkable. She is vitally stable in no distress. She is at baseline mental status, uses a wheelchair at assisted living. Recommended f/u with PCP, discussed return precautions and answered all questions. Disposition: Discharge Sonia Li MD 05/05/24 1628 * Poonam Johnson RN - 05/05/2024 6:32 AM CDT Pt to ED via EMS from [facility] for ground level fall this AM. Denies LOC or use of thinners.Pt does c/o abrasion to Lt forehead, and skin tear to lower Lt leg * Yahaira Beasley RN - 05/05/2024 6:32 AM CDT Bed: 05 Expected date: Expected time: Means of arrival: Comments: [place] documented in this encounter Plan of Treatment Not on file documented as of this encounter Procedures Procedure Name Priority Date/Time Associated Diagnosis Comments XR ANKLE LT M3V STAT 05/05/2024 10:57 AM CDT ECG 12-LEAD Routine 05/05/2024 8:37 AM CDT XR TIBIA+FIBULA LT 2V STAT 05/05/2024 8:32 AM CDT XR PELVIS 1 OR 2 VIEWS STAT 8:32 AM CDT XR FEMUR LT 2V STAT 05/05/2024 8:32 AM CDT XR CHEST PORTABLE STAT 05/05/2024 8:3 2 AM CDT COMPREHENSIVE METABOLIC PANEL STAT 05/05/2024 8:30 AM CDT CBC W/DIFF AUTOMATED STAT 05/05/2024 8:[address] HEAD WO CON STAT 05/05/2024 7:[address] CERV SPINE WO CON STAT 05/05/2024 7:51 AM CDT HC URINALYSIS AUTO W/O MICRO STAT 05/05/2024 7:40 AM CDT documented in this encounter Results * XR ANKLE LT M3V (05/05/2024 10:57 AM CDT) Anatomical Region Laterality Modality Ankle Radiographic Jocelyn ging 05/05/2024 10:5 8 AM CDT Impressions 05/05/2024 10:59 AM CDT IMPRESSION: ===== 1. ??Scattered degenerative changes with no convincing acute osseous abnormality. 2. ??Diffuse demineralization. Referred By: ?? Interpreted By: Edgar Simms MD, 05/05/2024 10:58 AM Narrative 05/05/2024 10:59 AM CDT [address] [address] Examination: 3 views left ankle Exam Date/Time: [...] Procedure Note Edgar Simms MD - 05/05/2024 [facility] [address] [place], [place] [address] Examination: 3 views left ankle Exam Date/Time: [...] By: Edgar Simms MD, 05/05/2024 10:58 AM Sonia Li MD GENERAL IMAGING Final Result * ECG 12 lead (05/05/2024 8:37 AM CDT) 05/05/2024 8:37 AM CDT Narrative [facility] - 05/06/2024 2:11 PM CDT ?[place] [address] ? [address], [place] ? Test Date: ?2024-05-05 Pat Name: ? ABILIO GOODMAN ? Department: ?? 41 ? Room: ? [id number] Gender: ? Female ? 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 [id number] : ?1940 ? Requested By: SONIA LI Order Number: [id number] ? Reading MD: ?? Shiyam Satwani ? Measurements Intervals ?[place] ? Rate: ? 54 ? P: ?10 WY: ? 144 ?QRS: ?-22 QRSD: ? 96 ? T: ?139 QT: ? 435 ? QTc: ?413 ? Interpretive Statements Poor data quality, interpretation may be adversely affected. SINUS BRADYCARDIA BORDERLINE LEFT AXIS DEVIATION ??[QRS AXIS < -20] Unabel to comment on ST changes because of baseline artifact. No previous ECG available for comparison Procedure Note Juan M Rojas MD - 05/06/[address] 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 SINUS BRADYCARDIA BORDERLINE LEFT AXIS DEVIATION [QRS AXIS < -20] Unabel to comment on ST changes because of baseline artifact. No previous ECG available for comparison us Sonia Li MD ECG ORDERABLES Final Result [facility] * XR TIBIA+FIBULA LT 2V (05/05/2024 8:32 AM CDT) Anatomical Region Laterality Modality TibFib Radiographic Jocelyn ging 05/05/2024 8:49 AM CDT Impressions 05/05/2024 8:56 AM CDT IMPRESSION: 1. ??Subtle cortical regularity distal fibula. ??Consider ankle x-ray if clinically indicated. Referred By: ?? Interpreted By: Jun Jade MD, 05/05/2024 8:49 AM Narrative 05/05/2024 8:56 AM CDT [place] [address] Examination: 2 views left tibia/fibula Exam date/time: [...] Procedure Note Jun Jade MD - 05/05/2024 [place] [address] Examination: 2 views left tibia/fibula Exam date/time: [...] By: Jun Jade MD, 05/05/2024 8:49 AM Sonia Li MD GENERAL IMAGING Final [...] 8:46 AM Narrative 05/05/2024 8:57 AM CDT [address] [address] EXAMINATION: 2 views left femur and AP pelvis and AP pelvis [id number] EXAM DATE/TIME: 05/05/2024 8:12 AM REASON FOR [...] Procedure Note Jun Jade MD - 05/05/2024 [address], [place] [address] EXAMINATION: 2 views left femur and AP pelvis and AP pelvis [id number] EXAM DATE/TIME: 05/05/2024 8:12 AM REASON FOR [...] 8:46 AM Narrative 05/05/2024 8:57 AM CDT [facility] [address] [place], [place] [address] EXAMINATION: 2 views left femur and AP pelvis and AP pelvis [id number] EXAM DATE/TIME: 05/05/2024 8:12 AM REASON FOR [...] Procedure Note Jun Jade MD - 05/05/[address] [address] EXAMINATION: 2 views left femur and AP pelvis and AP pelvis [id number] EXAM DATE/TIME: 05/05/2024 8:12 AM REASON FOR [...] By: Jun Jade MD, 05/05/2024 8:46 AM us Sonia Li MD GENERAL IMAGING [...] 8:45 AM Narrative 05/05/2024 8:46 AM CDT [place] [address] Examination: Chest Radiograph, 1 view portable Exam [...] Procedure Note Jun Jade MD - 05/05/2024 [place] [address] Examination: Chest Radiograph, 1 view portable Exam [...] 70 - 99 MG/DL 05/05/2024 9:00 AM CDT [facility] BUN 27(H) 7 - 18 MG/DL 05/05/2024 9:00 AM CDT [facility] CREATININE S/P/B 1.14(H) 0.55 - 1.02 MG/DL 05/05/2024 9:00 AM CDT [facility] SODIUM S/P/B 138 136 - 145 MMOL/L 05/05/2024 9:00 AM CDT [facility] POTASSIUM S/P/B 4.0 3.5 - 5.1 MMOL/L 05/05/2024 9:00 AM CDT [facility] CHLORIDE S/P/B 105 97 - 115 MMOL/L 05/05/2024 9:00 AM CDT [facility] CO2 29.0 21 - 32 MMOL/L 05/05/2024 9:00 AM CDT [facility] CALCIUM S/P/B 10.0 8.5 - 10.1 MG/DL 05/05/2024 9:00 AM CDT [facility] BILIRUBIN TOTAL S/P/B 0.6 0.2 - 1.2 MG/DL 05/05/2024 9:00 AM CDT [facility] LAB Comment: THIS ASSAY IS NOT RECOMMENDED FOR PATIENTS UNDERGOING TREATMENT WITH ELTROMBOPAG DUE TO THE POTENTIAL FOR FALSELY ELEVATED RESULTS. TOTAL PROTEIN S/P/B 7.6 6.4 - 8.2 G/DL 05/05/2024 9:00 AM CDT [facility] ALBUMIN S/P/B 3.6 3.4 - 5.0 G/DL 05/05/2024 9:00 AM CDT [facility] AST 22 15 - 37 U/L 05/05/2024 9:00 AM CDT [facility] ALT 27 14 - 55 U/L 05/05/2024 9:00 AM T [facility] ALKALINE PHOSPHATASE S/P/B 114 50 - 136 U/L 05/05/2024 9:00 AM T [facility] ANION GAP 4.0 2 - 10 MMOL/L 05/05/2024 9:00 AM T [facility] BUN CREATININE RATIO 23.7 6 - 26 05/05/2024 9:00 AM T [facility] A/G RATIO 0.9(L) 1.0 - 2.0 RATIO 05/05/2024 9:00 AM T [facility] GFR ESTIMATE 47(L) >90 ML/MIN/1.7 3 M2 05/05/2024 9:00 AM T [facility] Comment: NOTE: eGFR is not calculated for patients <18 years of age or gender unknown. This is an estimated GFR calculation using the new CKD EPI creatinine equation without race and so does not require a correction factor for race. This estimated GFR should not be used for calculating drug doses. 05/05/2024 8:30 AM CDT us Sonia Li MD LABORATORY Final Result [facility] [address] [place] [address], [place] [phone] * (ABNORMAL) CBC W/DIFF AUTOMATED (05/05/2024 8:30 AM CDT) [facility] WBC 9.51 4.5 - 11.0 x10'3/uL 05/05/2024 8:50 AM CDT [facility] RBC 4.52 4.20 - 5.40 x10'6/uL 05/05/2024 8:50 AM CDT [facility] HGB 14.3 12.0 - 16.0 G/DL 05/05/2024 8:50 AM CDT [facility] HCT 44.0 38.0 - 48.0 % 05/05/2024 8:50 AM CDT [facility] MCV 97.3 81.0 - 99.0 FL 05/05/2024 8:50 AM CDT [facility] MCH 31.6(H) 27.0 - 31.0 PG 05/05/2024 8:50 AM CDT [facility] MCHC 32.5 32.0 - 36.0 G/DL 05/05/2024 8:50 AM CDT [facility] RDW 13.9 11.5 - 14.5 % 05/05/2024 8:50 AM CDT [facility] PLT 280 130 - 400 x10'3/uL 05/05/2024 8:50 AM CDT [facility] MPV 10.2 9.3 - 12.2 FL 05/05/2024 8:50 AM CDT [facility] DIFFERENTIAL TYPE AUTOMATED DIFFERENTIAL 05/05/2024 8:50 AM CDT [facility] NEUTROPHILS % 68.2 % 05/05/2024 8:50 AM CDT [facility] LYMPHOCYTES % 17.4 % 05/05/2024 8:50 AM CDT [facility] MONOCYTES % 10.3 % 05/05/2024 8:50 AM CDT [facility] EOSINOPHILS 3.2 % 05/05/2024 8:50 AM CDT [facility] BASOPHILS 0.5 % 05/05/2024 8:50 AM CDT [facility] IMMATURE GRANS % 0.4 % 05/05/20 8:50 AM CDT [facility] ABS. NEUTROPHILS 6.49 1.80 - 7.70 x10'3/uL 05/05/2024 8:50 AM CDT [facility] ABS. LYMPHOCYTES 1.65 1.00 - 4.80 x10'3/uL 05/05/2024 8:50 AM CDT [facility] ABS. MONOCYTES 0.98(H) 0.24 - 0.86 x10'3/uL 05/05/2024 8:50 AM CDT [facility] ABS. EOSINOPHILS 0.30 0.04 - 0.36 x10'3/uL 05/05/2024 8:50 AM CDT [facility] ABS. BASOPHILS 0.05 0.01 - 0.08 x10'3/uL 05/05/2024 8:50 AM CDT [facility] ABS. IMMATURE GRANULOCYTES 0.04 0.00 - 0.49 x10'3/uL 05/05/2024 8:50 AM CDT [facility] 05/05/2024 8:30 AM CDT us Sonia Li MD LABORATORY Final Result [facility] [address] [place] [address], [place] [phone] * CT CERV SPINE WO CON (05/05/2024 7:51 AM CDT) Anatomical Region Laterality Modality Spine Computed Tomogra phy 05/05/2024 8:19 AM CDT Impressions 05/05/2024 8:27 AM CDT IMPRESSION:===== 1. No acute fracture is demonstrated. 2. Moderate cervical spondylosis with multilevel stenosis. Referred By: ?? Interpreted By: Tod Monge MD, 05/05/2024 8:19 AM Narrative 05/05/2024 8:27 AM CDT [address] [address] EXAMINATION: CT Cervical Spine without contrast. EXAM [...] lung apices is nonspecific. ===== Procedure Note Tod Monge MD - 05/05/[address] [address] EXAMINATION: CT Cervical Spine without contrast. EXAM [...] Li MD CT Final Result * CT HEAD WO CON (05/05/2024 7:51 [...] 8:18 AM Narrative 05/05/2024 8:20 AM CDT [place] [address] EXAMINATION: CT of the head EXAM DATE/TIME: [...] Procedure Note Edgar Simms MD - 05/05/[address] [address] EXAMINATION: CT of the head EXAM DATE/TIME: [...] By: Edgar Simms MD, 05/05/2024 8:18 AM Sonia Li MD CT Final Result * (ABNORMAL) URINALYSIS (05/05/2024 7:40 AM CDT) SPECIMEN TYPE URINE CLEAN CATCH 05/05/2024 7:36 AM CDT [facility] COLOR (U) LIGHT YELLOW 05/05/2024 8:46 AM CDT [facility] TRANSPARENCY CLEAR 05/05/2024 8:46 AM CDT [facility] SPECIFIC GRAVITY (U) 1.020 1.001 - 1.030 05/05/2024 8:46 AM CDT [facility] U PH 5.5 5.0 - 9.0 05/05/2024 8:46 AM CDT [facility] LEUKOCYTES (U) NEGATIVE NEGATIVE 05/05/2024 8:46 AM CDT [facility] NITRITES NEGATIVE NEGATIVE 05/05/2024 8:46 AM CDT [facility] PROTEIN RANDOM (U) 20 <30 MG/DL 05/05/2024 8:46 AM CDT [facility] GLUCOSE (U) >1000(A) NORMAL MG/DL 05/05/2024 8:46 AM CDT [facility] KETONES MG/DL (U) NEGATIVE NEGATIVE MG/DL 05/05/2024 8:46 AM CDT [facility] UROBILINOGEN NORMAL NORMAL MG/DL 05/05/2024 8:46 AM CDT [facility] BILIRUBIN (U) NEGATIVE NEGATIVE MG/DL 05/05/2024 8:46 AM CDT [facility] BLOOD (U) NEGATIVE NEGATIVE 05/05/2024 8:46 AM CDT [facility] URINE SPECIMEN OBTAINED BY CLEAN CATCH PROCEDURE / Unknown 05/05/2024 7:40 AM CDT us Sonia Li MD URINE ORDERABLES Final Resul t [facility] [address] [place] [address], [place] [phone] documented in this encounter Visit Diagnoses Diagnosis Fall- Primary Unspecified fall Head injury Head injury, unspecified Leg pain Pain in limb documented in this encounter Care Teams Room Service Attendant Relationship Specialty Start Date End Date Matthieu Fuentes MD [address] [place] [id number] PCP - General INTERNAL MEDICINE 05/05/24 documented as of this encounter
--- OUTSIDE RECORDS SUMMARY | 2024-08-01 16:30 | XMS_ITS | Encounter Summary ---
Author Organization [facility] Address [address] [place] [address]. [place], [place] [id number] [place] [id number] Care Team Providers Care General Pediatrician Name Role Phone Matthieu Fuentes MD Primary Care Provider [phone] Encounter Details Date Type Department Care Team (Latest Contact Info) Description 05/05/2024 Travel Social History Tobacco Use Types Packs/Day Years Used Date Smoking Tobacco: Never Smokeless Tobacco: Never Alcohol Use Standard Drinks/Week Comments Never 0 [...] Diagnoses Not on filedocumented in this encounter Care Teams General Pediatrician Relationship Specialty Start Date End Date Matthieu Fuentes MD [address] [place] [address] PCP - General INTERNAL MEDICINE 05/05/24 documented as of this encounter
--- OUTSIDE RECORDS SUMMARY | 2024-08-01 19:34 | XMS_ITS | Clinical Summary ---
Author Organization [facility] Address [address] [place] [address]. [place] [address] [place] [address] Care Team Providers Care Extension Service Supervisor Name Role Phone Matthieu Fuentes MD Primary Care Provider [phone] Allergies No known active allergies Medications No known medications Encounters Date Type Department Care Team Description 05/05/2024 6:32 AM CDT - 05/05/2024 12:36 PM CDT Emergency [facility] [place] [address] Sonia Li MD Fall Discharge Disposition: Fdc Facility 05/05/2024 Travel from Last 3 Months [...] 10:58 AM Narrative 05/05/2024 10:59 AM CDT [place] [address] Examination: 3 views left ankle Exam Date/Time: [...] - 05/05/2024 [facility] [address] [place], [place] [address] Examination: 3 views left ankle Exam Date/Time: [...] AM CDT) 05/05/2024 8:37 AM CDT Narrative [facility] - 05/06/2024 2:11 PM CDT ?[facility] ? [address] [facility] ? Test Date: ?2024-05-05 Pat Name: ? ABILIO GOODMAN ? Department: ?? 41 ? Room: ? [id number] Gender: ? Female ? Creative/Art Director: ?? [id number] : ?1940 ? Requested By: SONIA LI Order Number: [id number] ? Reading MD: ?? Shiyam Satwani ? Measurements Intervals ?[place] ? Rate: ? 54 ? P: ?10 [place]: ? 144 ?QRS: ?-22 QRSD: ? 96 ? T: ?139 QT: ? 435 ? QTc: ?413 ? Interpretive Statements Poor data quality, interpretation may be adversely affected. SINUS BRADYCARDIA BORDERLINE LEFT AXIS DEVIATION ??[QRS AXIS < -20] Unabel to comment on ST changes because of baseline artifact. No previous ECG available for comparison Procedure Note Juan M Rojas MD - 05/06/2024 [facility] [address] Test Date: 2024-05-05 Pat Name: ABILIO GOODMAN Department: 41 Room: [place] [address] Gender: Female Creative/Art Director: [id number] : 1940 Requested By: SONIA LI Order Number: [id number] Reading MD: Juan M Rojas Measurements Intervals [place] Rate: 54 P: 10 [place]: 144 QRS: -22 QRSD: 96 T: 139 QT: 435 QTc: 413 Interpretive Statements Poor data quality, interpretation may be adversely affected. SINUS BRADYCARDIA BORDERLINE LEFT AXIS DEVIATION [QRS AXIS < -20] Unabel to comment on ST changes because of baseline artifact. No previous ECG available for comparison us Sonia Li MD ECG ORDERABLES Final Result [facility] RAD * XR TIBIA+FIBULA LT 2V (05/05/2024 8:32 AM CDT) Anatomical Region Laterality Modality TibFib Radiographic Jocelyn ging 05/05/2024 8:49 AM CDT Impressions 05/05/2024 8:56 AM CDT IMPRESSION: 1. ??Subtle cortical regularity distal fibula. ??Consider ankle x-ray if clinically indicated. Referred By: ?? Interpreted By: Jun Jade MD, 05/05/2024 8:49 AM Narrative 05/05/2024 8:56 AM CDT [place] [address] Examination: 2 views left tibia/fibula Exam date/time: [...] Procedure Note Jun Jade MD - 05/05/2024 [place] [address] Examination: 2 views left tibia/fibula Exam date/time: [...] 8:46 AM Narrative 05/05/2024 8:57 AM CDT [place] [address] EXAMINATION: 2 views left femur and AP pelvis and AP pelvis [id number] EXAM DATE/TIME: 05/05/2024 8:12 AM REASON FOR [...] Procedure Note Jun Jade MD - 05/05/2024 [place] [address] EXAMINATION: 2 views left femur and AP pelvis and AP pelvis [id number] EXAM DATE/TIME: 05/05/2024 8:12 AM REASON FOR [...] 8:46 AM Narrative 05/05/2024 8:57 AM CDT [address] [address] EXAMINATION: 2 views left femur and AP pelvis and AP pelvis [id number] EXAM DATE/TIME: 05/05/2024 8:12 AM REASON FOR [...] Procedure Note Jun Jade MD - 05/05/[address] [address] EXAMINATION: 2 views left femur and AP pelvis and AP pelvis [id number] EXAM DATE/TIME: 05/05/2024 8:12 AM REASON FOR [...] AM Narrative 05/05/2024 8:46 AM CDT [facility] [place] [address] Examination: Chest Radiograph, 1 view portable Exam [...] Procedure Note Jun Jade MD - 05/05/2024 [place] [address] Examination: Chest Radiograph, 1 view portable Exam [...] - 99 MG/DL 05/05/2024 9:00 AM T [facility] BUN 27(H) 7 - 18 MG/DL 05/05/2024 9:00 AM T [facility] CREATININE S/P/B 1.14(H) 0.55 - 1.02 MG/DL 05/05/2024 9:00 AM T [facility] SODIUM S/P/B 138 136 - 145 MMOL/L 05/05/2024 9:00 AM T [facility] POTASSIUM S/P/B 4.0 3.5 - 5.1 MMOL/L 05/05/2024 9:00 AM T [facility] CHLORIDE S/P/B 105 97 - 115 MMOL/L 05/05/2024 9:00 AM T [facility] CO2 29.0 21 - 32 MMOL/L 05/05/2024 9:00 AM T [facility] CALCIUM S/P/B 10.0 8.5 - 10.1 MG/DL 05/05/2024 9:00 AM T [facility] BILIRUBIN TOTAL S/P/B 0.6 0.2 - 1.2 MG/DL 05/05/2024 9:00 AM T [facility] Comment: THIS ASSAY IS NOT RECOMMENDED FOR PATIENTS UNDERGOING TREATMENT WITH ELTROMBOPAG DUE TO THE POTENTIAL FOR FALSELY ELEVATED RESULTS. TOTAL PROTEIN S/P/B 7.6 6.4 - 8.2 G/DL 05/05/2024 9:00 AM T [facility] ALBUMIN S/P/B 3.6 3.4 - 5.0 G/DL 05/05/2024 9:00 AM T [facility] AST 22 15 - 37 U/L 05/05/2024 9:00 AM T [facility] ALT 27 14 - 55 U/L 05/05/2024 9:00 AM CDT [facility] ALKALINE PHOSPHATASE S/P/B 114 50 - 136 U/L 05/05/2024 9:00 AM CDT [facility] ANION GAP 4.0 2 - 10 MMOL/L 05/05/2024 9:00 AM CDT [facility] BUN CREATININE RATIO 23.7 6 - 26 05/05/2024 9:00 AM CDT [facility] A/G RATIO 0.9(L) 1.0 - 2.0 RATIO 05/05/2024 9:00 AM CDT [facility] GFR ESTIMATE 47(L) >90 ML/MIN/1.7 3 M2 05/05/2024 9:00 AM CDT [facility] Comment: NOTE: eGFR is not calculated for patients <18 years of age or gender unknown. This is an estimated GFR calculation using the new CKD EPI creatinine equation without race and so does not require a correction factor for race. This estimated GFR should not be used for calculating drug doses. 05/05/2024 8:30 AM CDT Sonia Li MD LABORATORY Final Result [facility] [address] [place] [address], * (ABNORMAL) CBC W/DIFF AUTOMATED (05/05/2024 8:30 AM CDT) WBC 9.51 4.5 - 11.0 x10'3/uL 05/05/2024 8:50 AM CDT [facility] RBC 4.52 4.20 - 5.40 x10'6/uL 05/05/2024 8:50 AM CDT [facility] HGB 14.3 12.0 - 16.0 G/DL 05/05/2024 8:50 AM CDT [facility] HCT 44.0 38.0 - 48.0 % 05/05/2024 8:50 AM CDT [facility] MCV 97.3 81.0 - 99.0 FL 05/05/2024 8:50 AM CDT [facility] MCH 31.6(H) 27.0 - 31.0 PG 05/05/2024 8:50 AM CDT [facility] MCHC 32.5 32.0 - 36.0 G/DL 05/05/2024 8:50 AM CDT [facility] RDW 13.9 11.5 - 14.5 % 05/05/2024 8:50 AM CDT [facility] PLT 280 130 - 400 x10'3/uL 05/05/2024 8:50 AM CDT [facility] MPV 10.2 9.3 - 12.2 FL 05/05/2024 8:50 AM CDT [facility] DIFFERENTIAL TYPE AUTOMATED DIFFERENTIAL 05/05/2024 8:50 AM CDT [facility] NEUTROPHILS % 68.2 % 05/05/2024 8:50 AM CDT [facility] LYMPHOCYTES % 17.4 % 05/05/2024 8:50 AM CDT [facility] MONOCYTES % 10.3 % 05/05/2024 8:50 AM CDT [facility] EOSINOPHILS 3.2 % 05/05/2024 8:50 AM CDT [facility] BASOPHILS 0.5 % 05/05/2024 8:50 AM CDT [facility] IMMATURE GRANS % 0.4 % 05/05/20 8:50 AM CDT [facility] ABS. NEUTROPHILS 6.49 1.80 - 7.70 x10'3/uL 05/05/2024 8:50 AM CDT [facility] ABS. LYMPHOCYTES 1.65 1.00 - 4.80 x10'3/uL 05/05/2024 8:50 AM CDT [facility] ABS. MONOCYTES 0.98(H) 0.24 - 0.86 x10'3/uL 05/05/2024 8:50 AM CDT [facility] ABS. EOSINOPHILS 0.30 0.04 - 0.36 x10'3/uL 05/05/2024 8:50 AM CDT [facility] ABS. BASOPHILS 0.05 0.01 - 0.08 x10'3/uL 05/05/2024 8:50 AM CDT [facility] ABS. IMMATURE GRANULOCYTES 0.04 0.00 - 0.49 x10'3/uL 05/05/2024 8:50 AM CDT [facility] 05/05/2024 8:30 AM CDT Sonia Li MD LABORATORY Final Result [facility] [address] [place] [address], [place] [phone] * CT HEAD WO CON (05/05/2024 7:51 [...] 8:18 AM Narrative 05/05/2024 8:20 AM CDT [address] [address] EXAMINATION: CT of the head EXAM DATE/TIME: [...] Procedure Note Edgar Simms MD - 05/05/[address] [address] EXAMINATION: CT of the head EXAM DATE/TIME: [...] 8:19 AM Narrative 05/05/2024 8:27 AM CDT [facility] [address] [place], [place] [address] EXAMINATION: CT Cervical Spine without contrast. EXAM [...] lung apices is nonspecific. ===== Procedure Note [place], Tod Ashby MD - 05/05/[address] [address] EXAMINATION: CT Cervical Spine without contrast. EXAM [...] URINE CLEAN CATCH 05/05/2024 7:36 AM CDT [facility] COLOR (U) LIGHT YELLOW 05/05/2024 8:46 AM CDT [facility] TRANSPARENCY CLEAR 05/05/2024 8:46 AM CDT [facility] SPECIFIC GRAVITY (U) 1.020 1.001 - 1.030 05/05/2024 8:46 AM CDT [facility] U PH 5.5 5.0 - 9.0 05/05/2024 8:46 AM CDT [facility] LEUKOCYTES (U) NEGATIVE NEGATIVE 05/05/2024 8:46 AM CDT [facility] NITRITES NEGATIVE NEGATIVE 05/05/2024 8:46 AM CDT [facility] PROTEIN RANDOM (U) 20 <30 MG/DL 05/05/2024 8:46 AM CDT [facility] GLUCOSE (U) >1000(A) NORMAL MG/DL 05/05/2024 8:46 AM CDT [facility] KETONES MG/DL (U) NEGATIVE NEGATIVE MG/DL 05/05/2024 8:46 AM CDT [facility] UROBILINOGEN NORMAL NORMAL MG/DL 05/05/2024 8:46 AM CDT [facility] BILIRUBIN (U) NEGATIVE NEGATIVE MG/DL 05/05/2024 8:46 AM CDT [facility] BLOOD (U) NEGATIVE NEGATIVE 05/05/2024 8:46 AM CDT [facility] URINE SPECIMEN OBTAINED BY CLEAN CATCH PROCEDURE / Unknown 05/05/2024 7:40 AM CDT us Sonia Li MD URINE ORDERABLES Final Resul t [facility] [address] [place] [address], from Last [address] [place] [address] [employer] OPEN ACCESS [facility] Care Teams Extension Service Supervisor Relationship Specialty Start Date End Date Matthieu Fuentes MD [address] [place] [id number] PCP - General INTERNAL MEDICINE 05/05/24
--- OUTSIDE RECORDS SUMMARY | 2024-08-01 19:34 | XMS_ITS | Encounter Summary ---
Author Organization [facility] Address [address] [place] [address]. [place], [place] [address] [place] [address] Care Team Providers Care Business Analytics Analyst Name Role Phone Matthieu Fuentes MD Primary Care Provider [phone] Reason for Referral * Imaging (Emergency) - New Request Specialty Diagnoses / Procedures Referred By Contac t Referred To Contact RADIOLOGY Procedures CT CERV SPINE WO Sonia Ding MD [address] [place] [address] Phone: tel: fax: Referral ID Status Reason Start Date Expiration Date V isits Requested Visits Authorized [id number] New Request 05/05/2024 05/05/2025 1 1 * Imaging (Emergency) - New Request Specialty Diagnoses / Procedures Referred By Amanuel rodriguez Referred To Contact RADIOLOGY Procedures CT HEAD WO Sonia Ding MD [address] [place] [address] Phone: tel: fax: Referral ID Status Reason Start Date Expiration Date V isits Requested Visits Authorized [id number] New Request 05/05/2024 05/05/2025 1 1 Reason for Visit * Reason Comments Fall Encounter Details Date Type Department Care Team (Late st Contact Info) Description 05/05/2024 6:32 AM CDT - 05/05/2024 12:36 PM CDT Emergency [facility] Emergency Room [place] [id number] Sonia Li MD [address] [place] [address] [phone] Fall Discharge Disposition: Assisted Facility Social History Tobacco Use Types Packs/Day [...] Care Everywhere. * Preventing falls in adults (Hungarian) documented in this encounter ED Notes * Emelia Hansen RN - 05/05/2024 12:40 PM CDT The patient, EMS, and BRYCE Upton at [facility] has been given information regarding their treatment, follow up and concerning symptoms for which they should seek urgent or emergent attention. Ihloreto expressed the the importance of seeking attention should there be any new, or worsening symptoms or persistence of their condition. Report given to EMS and called to BRYCE Upton at [facility] in [facility]. EMS and BRYCE Upton at [facility] verbalized understanding of the discharge instructions. * [...] Past Medical History: Diagnosis Date Diabetes mellitus ([facility] PAST SURGICAL HISTORY: History reviewed. No pertinent [...] alert. Comments: Oriented to self, states it's [facility], cannot state the year, states it is fall Psychiatric: Mood and Affect: Mood normal. Behavior: Behavior normal. 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: [id number] : 1940 Requested By: SONIA LI Order Number: [id number] Reading MD: Measurements Intervals [place] Rate: 54 P: 10 IA: 144 QRS: -22 QRSD: 96 T: 139 [...] ANKLE LT M3V Final Result by User, [id number] (05/05 1100) [place] [address] Examination: 3 views left ankle Exam Date/Time: [...] XR CHEST PORTABLE Final Result by User, [id number] (05/05 0847) [place] [address] Examination: Chest Radiograph, 1 view portable Exam [...] OR 2 VIEWS Final Result by User, [id number] (05/05 912) [place] [address] EXAMINATION: 2 views left femur and AP pelvis and AP pelvis [id number] EXAM DATE/TIME: 05/05/2024 8:12 AM REASON FOR [...] FEMUR LT 2V Final Result by User, [id number] (05/05 912) [place] [address] EXAMINATION: 2 views left femur and AP pelvis and AP pelvis [id number] EXAM DATE/TIME: 05/05/2024 8:12 AM REASON FOR [...] TIBIA+FIBULA LT 2V Final Result by User, [id number] (05/05 912) [place] [address] Examination: 2 views left tibia/fibula Exam date/time: [...] HEAD WO CON Final Result by User, [id number] (05/05 821) [place] [address] EXAMINATION: CT of the head EXAM DATE/TIME: [...] SPINE WO CON Final Result by User, [id number] (05/05 829) [address] [address] EXAMINATION: CT Cervical Spine without contrast. EXAM [...] for infection. Will have staff speak with penitentiary to make sure patient is her baseline [...] ankle xray. [JS] 1011 Spoke w/ patient's penitentiary: She can usually can tell who she [...] CDT Pt to ED via EMS from [facility] for ground level fall this AM. Denies LOC or use of thinners.Pt does c/o abrasion to Lt forehead, and skin tear to lower Lt leg * Yahaira Beasley RN - 05/05/2024 6:32 AM CDT Bed: 05 Expected date: Expected time: Means of arrival: Comments: [place] documented in this encounter Plan of Treatment [...] 10:58 AM Narrative 05/05/2024 10:59 AM CDT [address] [address] Examination: 3 views left ankle Exam Date/Time: [...] Procedure Note Edgar Simms MD - 05/05/2024 [facility] [address] [place], [place] [address] Examination: 3 views left ankle Exam Date/Time: [...] AM CDT) 05/05/2024 8:37 AM CDT Narrative [facility] - 05/06/2024 2:11 PM CDT ?[place] ? [address], [place] ? Test Date: ?2024-05-05 Pat Name: ? ABILIO GOODMAN ? Department: ?? 41 ? Room: ? [id number] Gender: ? Female ? Energy Crop Farmer: ?? [id number] : ?1940 ? Requested By: SONIA LI Order Number: [id number] ? Reading MD: ?? Shiyam Satwani ? Measurements Intervals ?[place] ? Rate: ? 54 ? P: ?10 IA: ? 144 ?QRS: ?-22 QRSD: ? 96 ? T: ?139 QT: ? 435 ? QTc: ?413 ? Interpretive Statements Poor data quality, interpretation may be adversely affected. SINUS BRADYCARDIA BORDERLINE LEFT AXIS DEVIATION ??[QRS AXIS < -20] Unabel to comment on ST changes because of baseline artifact. No previous ECG available for comparison Procedure Note Juan M Rojas MD - 05/06/[address] [facility] [address] Test Date: 2024-05-05 Pat Name: ABILIO GOODMAN Department: Room: [place] [address] Gender: Female Energy Crop Farmer: [id number] : 1940 Requested By: SONIA LI Order Number: [id number] Reading MD: Juan M Rojas Measurements Intervals [place] Rate: 54 P: 10 IA: 144 QRS: -22 QRSD: 96 T: 139 QT: 435 QTc: 413 Interpretive Statements Poor data quality, interpretation may be adversely affected. SINUS BRADYCARDIA BORDERLINE LEFT AXIS DEVIATION [QRS AXIS < -20] Unabel to comment on ST changes because of baseline artifact. No previous ECG available for comparison us Sonia Li MD ECG ORDERABLES Final Result [facility] RAD * XR TIBIA+FIBULA LT 2V (05/05/2024 8:32 AM CDT) Anatomical Region Laterality Modality TibFib Radiographic Jocelyn ging 05/05/2024 8:49 AM CDT Impressions 05/05/2024 8:56 AM CDT IMPRESSION: 1. ??Subtle cortical regularity distal fibula. ??Consider ankle x-ray if clinically indicated. Referred By: ?? Interpreted By: Jun Jade MD, 05/05/2024 8:49 AM Narrative 05/05/2024 8:56 AM CDT [place] [address] Examination: 2 views left tibia/fibula Exam date/time: [...] Procedure Note Jun Jade MD - 05/05/2024 [place] [address] Examination: 2 views left tibia/fibula Exam date/time: [...] 8:46 AM Narrative 05/05/2024 8:57 AM CDT [address] [address] EXAMINATION: 2 views left femur and AP pelvis and AP pelvis [id number] EXAM DATE/TIME: 05/05/2024 8:12 AM REASON FOR [...] Procedure Note Jun Jade MD - 05/05/2024 [address], [place] [address] EXAMINATION: 2 views left femur and AP pelvis and AP pelvis [id number] EXAM DATE/TIME: 05/05/2024 8:12 AM REASON FOR [...] 8:46 AM Narrative 05/05/2024 8:57 AM CDT [facility] [address] [place], [place] [address] EXAMINATION: 2 views left femur and AP pelvis and AP pelvis [id number] EXAM DATE/TIME: 05/05/2024 8:12 AM REASON FOR [...] Procedure Note Jun Jade MD - 05/05/[address] [address] EXAMINATION: 2 views left femur and AP pelvis and AP pelvis [id number] EXAM DATE/TIME: 05/05/2024 8:12 AM REASON FOR [...] 8:45 AM Narrative 05/05/2024 8:46 AM CDT [place] [address] Examination: Chest Radiograph, 1 view portable Exam [...] Procedure Note Jun Jade MD - 05/05/2024 [place] [address] Examination: Chest Radiograph, 1 view portable Exam [...] - 99 MG/DL 05/05/2024 9:00 AM CDT [facility] BUN 27(H) 7 - 18 MG/DL 05/05/2024 9:00 AM CDT [facility] CREATININE S/P/B 1.14(H) 0.55 - 1.02 MG/DL 05/05/2024 9:00 AM CDT [facility] SODIUM S/P/B 138 136 - 145 MMOL/L 05/05/2024 9:00 AM CDT [facility] POTASSIUM S/P/B 4.0 3.5 - 5.1 MMOL/L 05/05/2024 9:00 AM CDT [facility] CHLORIDE S/P/B 105 97 - 115 MMOL/L 05/05/2024 9:00 AM CDT [facility] CO2 29.0 21 - 32 MMOL/L 05/05/2024 9:00 AM CDT [facility] CALCIUM S/P/B 10.0 8.5 - 10.1 MG/DL 05/05/2024 9:00 AM CDT [facility] BILIRUBIN TOTAL S/P/B 0.6 0.2 - 1.2 MG/DL 05/05/2024 9:00 AM CDT [facility] Comment: THIS ASSAY IS NOT RECOMMENDED FOR PATIENTS UNDERGOING TREATMENT WITH ELTROMBOPAG DUE TO THE POTENTIAL FOR FALSELY ELEVATED RESULTS. TOTAL PROTEIN S/P/B 7.6 6.4 - 8.2 G/DL 05/05/2024 9:00 AM CDT [facility] ALBUMIN S/P/B 3.6 3.4 - 5.0 G/DL 05/05/2024 9:00 AM CDT [facility] AST 22 15 - 37 U/L 05/05/2024 9:00 AM CDT [facility] ALT 27 14 - 55 U/L 05/05/2024 9:00 AM T [facility] ALKALINE PHOSPHATASE S/P/B 114 50 - 136 U/L 05/05/2024 9:00 AM T [facility] ANION GAP 4.0 2 - 10 MMOL/L 05/05/2024 9:00 AM T [facility] BUN CREATININE RATIO 23.7 6 - 26 05/05/2024 9:00 AM T [facility] A/G RATIO 0.9(L) 1.0 - 2.0 RATIO 05/05/2024 9:00 AM T [facility] GFR ESTIMATE 47(L) >90 ML/MIN/1.7 3 M2 05/05/2024 9:00 AM T [facility] Comment: NOTE: eGFR is not [...] us Sonia Li MD LABORATORY Final Result [facility] [address] [place] [address], [place] [phone] * (ABNORMAL) CBC W/DIFF AUTOMATED (05/05/2024 8:30 AM CDT) [facility] WBC 9.51 4.5 - 11.0 x10'3/uL 05/05/2024 8:50 AM CDT [facility] RBC 4.52 4.20 - 5.40 x10'6/uL 05/05/2024 8:50 AM CDT [facility] HGB 14.3 12.0 - 16.0 G/DL 05/05/2024 8:50 AM CDT [facility] HCT 44.0 38.0 - 48.0 % 05/05/2024 8:50 AM CDT [facility] MCV 97.3 81.0 - 99.0 FL 05/05/2024 8:50 AM CDT [facility] MCH 31.6(H) 27.0 - 31.0 PG 05/05/2024 8:50 AM CDT [facility] MCHC 32.5 32.0 - 36.0 G/DL 05/05/2024 8:50 AM CDT [facility] RDW 13.9 11.5 - 14.5 % 05/05/2024 8:50 AM CDT [facility] PLT 280 130 - 400 x10'3/uL 05/05/2024 8:50 AM CDT [facility] MPV 10.2 9.3 - 12.2 FL 05/05/2024 8:50 AM CDT [facility] DIFFERENTIAL TYPE AUTOMATED DIFFERENTIAL 05/05/2024 8:50 AM CDT [facility] NEUTROPHILS % 68.2 % 05/05/2024 8:50 AM CDT [facility] LYMPHOCYTES % 17.4 % 05/05/2024 8:50 AM CDT [facility] MONOCYTES % 10.3 % 05/05/2024 8:50 AM CDT [facility] EOSINOPHILS 3.2 % 05/05/2024 8:50 AM CDT [facility] BASOPHILS 0.5 % 05/05/2024 8:50 AM CDT [facility] IMMATURE GRANS % 0.4 % 05/05/20 8:50 AM CDT [facility] ABS. NEUTROPHILS 6.49 1.80 - 7.70 x10'3/uL 05/05/2024 8:50 AM CDT [facility] ABS. LYMPHOCYTES 1.65 1.00 - 4.80 x10'3/uL 05/05/2024 8:50 AM CDT [facility] ABS. MONOCYTES 0.98(H) 0.24 - 0.86 x10'3/uL 05/05/2024 8:50 AM CDT [facility] ABS. EOSINOPHILS 0.30 0.04 - 0.36 x10'3/uL 05/05/2024 8:50 AM CDT [facility] ABS. BASOPHILS 0.05 0.01 - 0.08 x10'3/uL 05/05/2024 8:50 AM CDT [facility] ABS. IMMATURE GRANULOCYTES 0.04 0.00 - 0.49 x10'3/uL 05/05/2024 8:50 AM CDT [facility] 05/05/2024 8:30 AM CDT us Sonia Li MD LABORATORY Final Result [facility] [address] [place] [address], [place] [phone] * CT CERV SPINE WO CON (05/05/2024 7:51 AM CDT) Anatomical Region Laterality Modality Spine Computed Tomogra phy 05/05/2024 8:19 AM CDT Impressions 05/05/2024 8:27 AM CDT IMPRESSION:===== 1. No acute fracture is demonstrated. 2. Moderate cervical spondylosis with multilevel stenosis. Referred By: ?? Interpreted By: Tod Monge MD, 05/05/2024 8:19 AM Narrative 05/05/2024 8:27 AM CDT [address] [address] EXAMINATION: CT Cervical Spine without contrast. EXAM [...] Procedure Note Tod Monge MD - 05/05/[address] [address] EXAMINATION: CT Cervical Spine without contrast. EXAM [...] 8:18 AM Narrative 05/05/2024 8:20 AM CDT [place] [address] EXAMINATION: CT of the head EXAM DATE/TIME: [...] Procedure Note Edgar Simms MD - 05/05/[address] [address] EXAMINATION: CT of the head EXAM DATE/TIME: [...] URINE CLEAN CATCH 05/05/2024 7:36 AM CDT [facility] COLOR (U) LIGHT YELLOW 05/05/2024 8:46 AM CDT [facility] TRANSPARENCY CLEAR 05/05/2024 8:46 AM CDT [facility] SPECIFIC GRAVITY (U) 1.020 1.001 - 1.030 05/05/2024 8:46 AM CDT [facility] U PH 5.5 5.0 - 9.0 05/05/2024 8:46 AM CDT [facility] LEUKOCYTES (U) NEGATIVE NEGATIVE 05/05/2024 8:46 AM CDT [facility] NITRITES NEGATIVE NEGATIVE 05/05/2024 8:46 AM CDT [facility] PROTEIN RANDOM (U) 20 <30 MG/DL 05/05/2024 8:46 AM CDT [facility] GLUCOSE (U) >1000(A) NORMAL MG/DL 05/05/2024 8:46 AM CDT [facility] KETONES MG/DL (U) NEGATIVE NEGATIVE MG/DL 05/05/2024 8:46 AM CDT [facility] UROBILINOGEN NORMAL NORMAL MG/DL 05/05/2024 8:46 AM CDT [facility] BILIRUBIN (U) NEGATIVE NEGATIVE MG/DL 05/05/2024 8:46 AM CDT [facility] BLOOD (U) NEGATIVE NEGATIVE 05/05/2024 8:46 AM CDT [facility] URINE SPECIMEN OBTAINED BY CLEAN CATCH PROCEDURE / Unknown 05/05/2024 7:40 AM CDT us Sonia Li MD URINE ORDERABLES Final Resul t [facility] [address] [place] [address], [place] [phone] documented in this encounter Visit Diagnoses Diagnosis Fall- Primary Unspecified fall Head injury Head injury, unspecified Leg pain Pain in limb documented in this encounter Care Teams Business Analytics Analyst Relationship Specialty Start Date End Date Matthieu Fuentes MD [address] [place] [address] PCP - General INTERNAL MEDICINE 05/05/24 documented as of this encounter
--- OUTSIDE RECORDS SUMMARY | 2024-08-01 19:34 | XMS_ITS | Encounter Summary ---
Author Organization [facility] Address [address] [place] [address]. [place], [place] [address] [place] [address] Care Team Providers Care Polytechnic Registrar Name Role Phone Matthieu Fuentes MD Primary Care Provider [phone] Encounter Details Date Type Department Care Team [...] on filedocumented in this encounter Care Teams Polytechnic Registrar Relationship Specialty Start Date End Date Matthieu Fuentes MD [address] [place] [address] PCP - General INTERNAL MEDICINE 05/05/24 documented as of this encounter
--- OUTSIDE RECORDS SUMMARY | 2024-08-01 19:34 | XMS_ITS | Encounter Summary ---
Author Organization [facility] Address [address] [place] [address]. [place], [place] [address] [place] [address] Care Team Providers Care Walking Dragline Operator Name Role Phone Unavailable Primary Care Provider Unavailabl e Encounter Details Date Type Department Care Team (Late st Contact Info) Description 11/29/2023 Scan [facility] [address] [place] [phone] Matthieu Fuentes MD [address] [place] [address] Social History Tobacco Use Types Packs/Day [...]
== END 2024-07-29 02:12 ==
LOC: ANHED 01:44
PROVIDERS: Emergency Provider Student in an Organized Health Care Education/Training Program; PCP Internal Medicine
DX: S61.411A Laceration without foreign body of right hand, initial encounter (principal); S09.90XA Unspecified injury of head, initial encounter; W18.30XA Fall on same level, unspecified, initial encounter; Z79.84 Long term (current) use of oral hypoglycemic drugs; E78.5 Hyperlipidemia, unspecified; I10 Essential (primary) hypertension; E11.42 Type 2 diabetes mellitus with diabetic polyneuropathy; F32.A Depression, unspecified
CPT/HCPCS: 12002; 70450; 70486; 72125; 73120; 99282; A9270

== ENCOUNTER 2024-10-18 21:12 | Emergency (ER) | payer OTHER, SELFPAY ==
--- NOTE | ~2024-10-18 | CT_ITS ---
History: Fall PROCEDURE: CT cervical spine without intravenous contrast. COMPARISON: 07/29/2024 TECHNIQUE: Multiple contiguous axial images of the cervical spine were performed without the administration of i ntravenous contrast. DLP: 432 mGy-cm FINDINGS: Preservation of the normal curvature of the cervical spine is identified. Significant spondylosis is present. Evaluation for a nondisplaced fracture is limited secondary to mo tion artifact. No secondary signs to suggest the presence of an acute fracture within the cervical spine. Significant facet arthropathy is also noted. No acute displaced fractures are present. The bilateral lung apices are unremarkable. No soft tissue abnormality is present. The airway is patent. Impression: Limited examination of the cervical spine secondary to motion artifact despite multiple attempts. Severe spondylosis is noted without acute displaced fracture suspected. Reviewed, dictated and finalized at location A. UTER NUMERICAL CONTROL OPERATOR Impression: Limited examination of the cervical spine secondary to motion artifact despite multiple attempts. Severe spondylosis is noted without acute displaced fracture suspected.
--- NOTE | ~2024-10-18 | XR_ITS ---
HISTORY: Right elbow pain, skin tear COMPARISON: None TECHNIQUE: 3 views of the right elbow were performed. FINDINGS: No acute fracture is identified. No elevation of the anterior or posterior fat pads are identified to suggest a supracondylar fracture . Overlying soft tissues are unremarkable. Bone mineralization is age-appropriate. IMPRESSION: No acute fracture or dislocation. Reviewed, dictated and finalized at location A. MTABLE WORKER
--- NOTE | ~2024-10-18 | CT_ITS ---
History: Fall PROCEDURE: CT head without contrast. COMPARISON: 07/28/2024 TECHNIQUE: Axial imaging of the head performed from the skull base to the vertex without IV contrast. Sagittal a nd coronal reformations obtained. DLP: 681 mGy-cm FINDINGS: The ventricles are enlarged. The dilatation of the ventricles is proportional to the degree of sulcal prominence, not uncommon in the senescent brain. Decreased attenuation is identified within the periventricular white matter, likely secondary to micr ovascular ischemic disease, in a patient of this age. There is no mass, mass effect or midline shift. There is no abnormal extra-axial fluid collection or intracranial hemorrhage. Near-complete opacification of the left maxillary sinus, an interval change from prior. Mucoperiosteal thickening within the bilateral ethmoid sinuses. The sphenoid and frontal sinuses are clear. The mastoid air cells are well aerated. No acute displaced fractures within the overlying cranium. Frontal scalp hematoma, consistent with patient's history. Impression: No acute intracranial hemorrhage or suspicious mass effect. Frontal scalp hematoma, consistent with patient's history. Reviewed, dictated and finalized at location A. ITY ANALYST Impression: No acute intracranial hemorrhage or suspicious mass effect. Frontal scalp hematoma, consistent with patient's history.
--- NOTE | ~2024-10-18 | XR_ITS ---
HISTORY: Hip pain status post fall COMPARISON: None TECHNIQUE: 2 views of the left hip along with an AP view of the pelvis FINDINGS: No acute fracture or dislocation is identified. Superior lateral sclerosis of the bilateral femoral acetabular joint spaces are present consistent wi th osteoarthritis. Joint space narrowing detected within the bilateral SI joints with sclerosis. Degenerative disease within the visualized portion of the lower lumbar spine. Fecal stasis within the colon. Air within the rectum. Mineralization is age-appropriate IMPRESSION: Degenerative disease without acute fracture or dislocation Reviewed, dictated and finalized at location A. ER APPRENTICE
--- NOTE | ~2024-10-18 | XR_ITS ---
HISTORY: Contusion; pt fell out of bed this evening COMPARISON: None TECHNIQUE: 3 views of the left hand were performed. FINDINGS: No acute fracture is identified. 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 Narrowing of the distal interphalangeal joint spaces are noted. The carpal arcs are intact. Moderate radiocarpal joint space narrowing with sclerosis of the distal radius is present. Bone mineralization is age-appropriate. No significant soft tissue swelling. No radiopaque foreign body is identified. 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 Reviewed, dictated and finalized at location A. 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
[2024-10-18 21:08] VITALS: BP 135/44; PULSE 71; RESP 15; TEMP 36.8; O2SAT 100
--- OUTSIDE RECORDS SUMMARY | 2024-10-18 21:22 | XMS_ITS | Clinical Summary ---
Author Organization [facility] [address] [facility] laura Address [address] [place] [address] Care Team Providers Care Supervisor Multifocal Lens Name Role Phone Matthieu Fuentes MD Primary Care Provider + Allergies Active Allergy Reactions Criticality Noted Date Comments Penicillins Unknown 05/19/2022 Medications nystatin powder Apply topically 2 (two) times a day 60 g 3 Active amLODIPine (NORVASC) 10 mg tablet TAKE ONE TABLET BY MOUTH EVERY DAY 30 tablet 2 3 Active dapagliflozin propanediol (Farxiga) 10 mg tablet TAKE ONE TABLET BY MOUTH EVERY DAY. 30 tablet 2 3 Active glipiZIDE XL (GLUCOTROL XL) 5 mg 24 hr tablet TAKE ONE TABLET BY MOUTH EVERY DAY 30 tablet 2 3 Active oxymetazoline (AFRIN) 0.05 % nasal spray Administer 2 sprays into each nostril 2 (two) times a day as needed for congestion 30 mL 3 Active sodium chloride (OCEAN) 0.65 % nasal spray Administer 1 spray into each nostril every 8 (eight) hours as needed for rhinitis 15 mL 1 3 Active FLUoxetine (PROzac) 20 mg capsuleIndicatio ns:Recurrent major depressive disorder, in full remission TAKE ONE CAPSULE BY MOUTH ONE TIME DAILY 30 capsule 4 Active BD Gin 2nd Gen Pen Needle 32 gauge x 5/32 needle INJECT WITH ONE EACH UNDER THE SKIN DAILY 100 each 4 Active atorvastatin (LIPITOR) 10 mg tablet TAKE 1 TABLET BY MOUTH DAILY AT BEDTIME 30 tablet 4 Active blood glucose diagnostic (True Metrix Glucose Test Strip) strip Use to test blood sugars TID. 50 strip 4 Active bumetanide (BUMEX) 2 mg tablet Take 1 tablet (2 mg total) by mouth daily Active LANTUS 100 unit/mL (3 mL) pen for injection Inject 34 Units under the skin nightly 4 Active iron ps [id number] c acid (NIFEREX-150 FORTE) 150-25-1 mg-mcg-mg capsule 1 tablet Active acetaminophen (TYLENOL) 500 mg tablet Take 2 tablets (1,000 mg total) by mouth every 6 (six) hours as needed Active losartan (COZAAR) 50 mg tablet Take 1 tablet (50 mg total) by mouth daily Active Active Problems Problem Noted Date Diagnosed Date Multiple falls 09/07/2024 Assessment & Plan (09/12/2024 2:08 PM RN ON SITE): Would benefit from a manual wheelchair. It would help her perform her ADLs. It would decrease her risk of falls. She was able to self propel a manual wheelchair. Hospital bed would allow her to position herself better and get out of bed with less falls. Gait instability 09/07/2024 Assessment & Plan (09/11/2024 7:03 AM RN ON SITE): History of multiple falls. Would benefit from a manual wheelchair. It would help her perform her ADLs. It would decrease her risk of falls. She was able to self propel a manual wheelchair. Right wrist pain 08/04/2024 Laceration of right hand without foreign body Assessment & Plan (08/04/2024 3:48 PM RN ON SITE): Sustained one-week ago. Went to [facility] ED, Steri-Strips were applied. Well healing without signs of infection. Discussed to observe. Steri-Strips will peel off on its own. Abrasion of right leg 08/04/2024 Assessment & Plan (08/04/2024 3:14 PM RN ON SITE): Sustained 3 weeks ago. Looks infected. Will treat with doxycycline 100 mg bid x 7d. I changed dressing. Wound care instruction. Keep area clean and dry. Apply topical antibiotic and new dressing daily until it heals. Come back to recheck if no improvement after treatment or if gets worse at any point. Contusion of right periocular region 06/07/2024 Assessment & Plan (06/07/2024 1:08 PM CDT): Onset 4 days ago after sustaining ground fall from bed. Patient went to ER the same day, head CT was unremarkable. Besides bruising no complaints. Continue observing. Contusion of right hand 06/07/2024 Assessment & Plan (06/07/2024 1:14 PM CDT): Onset 4 days ago after sustaining ground fall from bed. Patient had slight soreness same day, getting worse. On exam large superficial skin tear with mirza slough. Will treat with doxycycline prophylactically. I applied topical antibiotic and new dressing. Written order to change dressings daily given for patient's facility. Will check hand x-ray. Wound care instruction. Keep area clean and dry. Apply topical antibiotic and new dressing daily until it heals. Come back to recheck if no improvement after treatment or if gets worse at any point. Lower extremity edema 03/29/2024 Assessment & Plan (09/12/2024 7:41 AM RN ON SITE): Stable on Bumex. Would benefit from a hospital bed in order to elevate her legs alleviate the edema. Assessment & Plan (03/29/2024 3:10 PM CDT): Will increase Bumex to 4 mg for one week then decrease back to 2 mg a day. Recommend trying compression stockings. Medium compression knee high. Debility 12/13/2023 Assessment & Plan (12/13/2023 3:38 PM CDT): Will order PT Overactive bladder 06/29/2023 Assessment & Plan (06/29/2023 1:43 PM RN ON SITE): Instructed to cut down on caffeine. Will start Myrbetriq 25 mg once a day Contusion of left hand 03/29/2023 Assessment & Plan (03/29/2023 1:39 PM CDT): FROM and no pain. Will observe Functional diarrhea 03/29/2023 Assessment & Plan (03/29/2023 1:44 PM CDT): Continue fiber. She denies abdominal pain. Benign abdominal examine. Chronic pain of right knee 12/21/2022 Assessment & Plan (12/21/2022 2:54 PM CDT): Continue PT. Can try tylenol prn for pain Depression, major, recurrent 11/25/2022 Assessment & Plan (09/11/2024 7:03 AM RN ON SITE): Stable on current dose of fluoxetine Assessment & Plan (03/28/2024 1:36 PM CDT): Stable on current dose of fluoxetine Assessment & Plan (12/09/2023 12:23 PM CDT): Stable on current dose of fluoxetine Assessment & Plan (06/28/2023 12:43 PM RN ON SITE): Stable on current dose of fluoxetine Assessment & Plan (03/23/2023 3:37 PM CDT): Stable on current dose of fluoxetine Assessment & Plan (12/21/2022 2:46 PM CDT): Improved since reducing the fluoxetine. She is less withdrawn. Appears to be her normal self. No worsening of depression Assessment & Plan (11/25/2022 2:40 PM CDT): Niece feels like she is more withdrawn and falls more often since starting prozac Mild early onset Alzheimer's dementia 11/25/2022 Assessment & Plan (09/11/2024 7:03 AM RN ON SITE): Stable. Assessment & Plan (03/28/2024 1:35 PM CDT): Stable. Assessment & Plan (12/09/2023 12:23 PM CDT): Stable. Assessment & Plan (06/28/2023 12:43 PM RN ON SITE): Stable. Assessment & Plan (03/23/2023 3:37 PM CDT): Stable. Assessment & Plan (11/25/2022 2:46 PM CDT): Stable. Will plan on starting donepezil once we get right dose of fluoxetine. Cutaneous candidiasis 08/25/2022 Assessment & Plan (12/09/2023 12:24 PM CDT): Stable with nystatin powder Assessment & Plan (06/29/2023 1:37 PM RN ON SITE): Increase nystatin powder to twice a day. Assessment & Plan (12/21/2022 2:51 PM CDT): Much improved. Continue Nystatin powder Assessment & Plan (11/25/2022 2:49 PM CDT): Continue Nystatin powder three times a day. Will start fluconazole 100 mg 2 tablets the first day then 1 tablet a day for 4 days. Assessment & Plan (08/25/2022 1:53 PM RN ON SITE): Continue Nystatin powder. May try fluconazole once we get bloodwork and confirm LFTs are ok. Right leg pain 08/25/2022 Assessment & Plan (06/29/2023 1:45 PM RN ON SITE): Would start tylenol 500 mg twice a day Assessment & Plan (08/25/2022 1:56 PM RN ON SITE): Possible bursitis vs arthritis. Will possibly try NSAID for renal function is ok. 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 Continue Lantus, Farxiga, and glipizide. Assessment & Plan (03/28/2024 1:35 PM CDT): Hemoglobin A1c was improved at last check. Continue Lantus, Farxiga, and glipizide. Assessment & Plan (12/09/2023 12:23 PM CDT): Hemoglobin A1c was improved at last check. Continue Levemir, Farxiga, and glipizide. Assessment & Plan (06/28/2023 12:42 PM RN ON SITE): Hemoglobin A1c was improved at last check. Continue Levemir, Farxiga, and glipizide. Assessment & Plan (03/23/2023 3:35 PM CDT): Hemoglobin A1c was improved at last check. Continue Levemir, Farxiga, and glipizide. Assessment & Plan (12/21/2022 2:40 PM CDT): Hemoglobin A1c was improved at last check. Continue Levemir, Farxiga, and glipizide. Assessment & Plan (11/23/2022 4:26 PM CDT): Hemoglobin A1c is improved. It was 7.4 in September. Continue Levemir, Farxiga, and glipizide. Assessment & Plan (08/25/2022 1:55 PM RN ON SITE): HgbA1c was 11 in 05/2022. Unclear if any med changes. Need to obtain current medication list Continue Levemir, Farxiga, and glipizide. Assessment & Plan (05/19/2022 3:00 PM CDT): Last hemoglobin A1c December of 2021 was 9.7. Will continue Levemir and glipizide. Will recheck a hemoglobin A1c. Pure hypercholesterolemia 01/14/2017 Assessment & Plan (09/11/2024 7:03 AM RN ON SITE): Stable on atorvastatin. Assessment & Plan (03/28/2024 1:35 PM CDT): Stable on atorvastatin. Assessment & Plan (12/09/2023 12:23 PM CDT): Stable on atorvastatin. Assessment & Plan (06/28/2023 12:42 PM RN ON SITE): Stress low-cholesterol diet. Awaiting recheck blood work. Assessment & Plan (03/23/2023 3:36 PM CDT): Stress low-cholesterol diet. Awaiting recheck blood work. Assessment & Plan (12/21/2022 2:41 PM CDT): Stress low-cholesterol diet. Recheck fasting lipid profile in 3 months Assessment & Plan (11/23/2022 4:26 PM CDT): LDL slightly elevated. Stress low-cholesterol diet Assessment & Plan (08/24/2022 12:29 PM RN ON SITE): Did not do blood work from last visit. Encouraged to get blood work done. Essential (primary) hypertension 12/03/2015 Assessment & Plan (09/11/2024 7:03 AM RN ON SITE): Stable on amlodipine and losartan Assessment & Plan (03/28/2024 1:35 PM CDT): Stable on amlodipine and losartan Assessment & Plan (12/09/2023 12:22 PM CDT): Stable on amlodipine and losartan Assessment & Plan (06/28/2023 12:42 PM RN ON SITE): Stable on amlodipine and losartan Assessment & Plan (03/23/2023 3:36 PM CDT): Stable on amlodipine and losartan Assessment & Plan (11/23/2022 4:26 PM CDT): Stable on amlodipine and losartan Assessment & Plan (08/24/2022 12:29 PM RN ON SITE): Stable on amlodipine and losartan. Assessment & Plan (05/19/2022 2:25 PM CDT): Blood pressure stable on amlodipine and losartan. Resolved Problems Problem Noted Date Diagnosed Date Resolved Date Scalp laceration, subsequent encounter 05/19/2022 06/28/2023 Assessment & Plan (05/19/2022 2:58 PM CDT): 9 devante removed. Laceration healed. Ok to wash hair. Class 2 severe obesity due t o excess calories with serious comorbidity and body mass index (BMI) of 35.0 to 35.9 in adult 05/19/2022 Assessment & Plan (09/11/2024 7:04 AM RN ON SITE): BMI Follow-up includes: exercise counseling. Assessment & Plan (12/09/2023 12:23 PM CDT): BMI Follow-up includes: exercise counseling. Assessment & Plan (06/28/2023 12:42 PM RN ON SITE): BMI Follow-up includes: exercise counseling. Assessment & Plan (03/23/2023 3:36 PM CDT): BMI Follow-up includes: exercise counseling. Assessment & Plan (12/17/2022 1:13 PM CDT): BMI Follow-up includes: exercise counseling. Assessment & Plan (11/23/2022 4:26 PM CDT): BMI Follow-up includes: exercise counseling. Assessment & Plan (08/24/2022 12:30 PM RN ON SITE): BMI Follow-up includes: exercise counseling. Assessment & Plan (05/19/2022 2:27 PM CDT): BMI Follow-up includes: exercise counseling. Stage 3 chronic kidney disease 12/09/2021 05/19/2022 Encounters Date Type Department Care Team Description 09/14/2024 Telephone [facility] [address] [place] [address] Matthieu Fuentes MD Additional Services Or Orders 09/13/[address] [address] Matthieu Fuentes MD Medical Records Request 09/12/2024 1:45 PM RN ON SITE Office Visit [address] [address] Matthieu Fuentes MD 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 (HCC) (Primary Dx); Pure hypercholesterolemia ; Essential (primary) hypertension; Recurrent major depressive disorder, in full remission; 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, psychotic disturbance, mood disturbance, or anxiety (HCC); Gait instability; Multiple falls; Lower extremity edema 09/11/2024 Telephone [facility] [address] [place] [address] Matthieu Fuentes MD Forms Request 09/06/2024 Telephone [facility] [address] [place] [address] Matthieu Fuentes MD Medical Question/Miscellaneo us 08/23/[address] [address] Matthieu Fuentes MD Confusion 08/04/2024 2:30 PM RN ON SITE Office Visit [address] [address] Belinda Goldberg PA Laceration of right hand without foreign body, subsequent encounter (Primary Dx); Abrasion of right lower extremity, initial encounter 08/02/2024 Documentation [facility] [address] [place] [address] Rita Pacheco MD 08/02/2024 Telephone [facility] [address] [place] [address] Matthieu Fuentes MD After Hours 07/28/2024 Orders Only [facility] Information Management [address] [place] [address] Scanning, Provider from Last 3 Months Immunizations Immunization Administration Dates Next Due Influenza, Trivalent, High D ose, Split, Preservative Free, Intramuscular 05/21/2016,06/02/2014 Influenza, Trivalent, IM (MDV) 05/01/2013 Influenza, Unspecified 05/24/2024,2023(Deferred: Patient decision),05/25/2023,12/21/2022(Deferr ed: Patient decision),04/27/2019 Pneumococcal Conjugate PCV 13 12/05/2015 Pneumococcal Polysaccharide PPV23 12/05/2015 Tdap 05/05/2024,11/28/2023,08/28/2013 Tetanus toxoid, adsorbed 01/25/2006 Surgical History Surgery Date Site/Laterality Comments ANKLE FRACTURE SURGERY Right Medical History Medical History Date Comments Diabetes mellitus (HCC) Hypertension Family History Relation Name Status Comments Father Mother Social History Tobacco Use Types Packs/Day Years Used Date Smoking Tobacco: Never Smokeless Tobacco: Never Tobacco Cessation:Counseling Given: Not Answered AUDIT-C Answer Date Recorded Q1: How often do you have a drink containing alcohol? Never 09/12/2024 Q2: How many drinks containi ng alcohol do you have on a typical day when you are drinking? Patient does not drink Q3: How often do you have si x or more drinks on one occasion? Never 09/12/2024 PHQ-2 Answer Date Recorded PHQ-2 Total Score (If total score is 3 or more points, staff should administer the PHQ-9) 0 09/12/2024 Comments Unknown Sex and Gender Information Value Date Recorded Sex Assigned at Not on file Legal Sex Female 7:36 PM RN ON SITE Gender Identity Not on file Sexual Orientation Not on file Obstetrics History Last Filed Vital Signs Vital Sign Reading Time Taken Comments Blood Pressure 120/68 09/12/2024 1:59 PM RN ON SITE Pulse 56 09/12/2024 1:59 PM RN ON SITE Temperature 36.4 C (97.6 F) 09/12/2024 1:59 PM RN ON SITE Respiratory Rate 18 09/12/2024 1:59 PM RN ON SITE Oxygen Saturation 98% 09/12/2024 1:59 PM RN ON SITE Inhaled Oxygen Concentration - - Weight 94.1 kg (207 lb 8 oz) 03/29/2024 2:43 PM CDT Height 160 cm (5' 3 ) 08/04/2024 2:36 PM RN ON SITE Body Mass Index 36.99 03/29/2024 2:43 PM CDT Plan of Treatment Health Maintenance Due Date Last Done Comments Osteoporosis Screening-Bone Density Scan 1940 Hepatitis B Screening 1957 Zoster Vaccine (1 of 2) 1989 Well Visit 65+ 2004 Foot Exam 12/22/2023 12/21/2022 Dilated Eye Exam 06/23/2024 06/23/2023 Hemoglobin A1C 09/28/2024 03/28/2024, 09/17, 10/06/2022 Albumin Creatinine Ratio, Urine 03/28/2025 Lipid Panel 03/28/2025 03/28/2024, 10/06/2022 eGFR 03/28/2025 03/28/2024, 10/07/2022 Depression Screening 09/12/2025 09/12/2024, 12/13/2023, 08/25/2022, Additional history exists Fall Risk Assessment 09/12/2025 09/12/2024, 12/13/2023, 08/25/2022, Additional history exists DTaP/Tdap/Td Vaccine (4 - Td or Tdap) 05/05/2034 05/05/2024, 11/28/2023, 08/28/2013, Additional history exists Pneumococcal vaccine 65+ Completed 12/05/2015, 11/15 Influenza Vaccine Completed 05/24/2024, , 04/27/2019, Additional history exists Procedures Procedure Name Priority Date/Time Associated Diagnosis Comments SCAN - RADIOLOGY/IMAGING 07/28/2024 EGFR Routine 03/28/2024 11:15 AM CDT HEMOGLOBIN A1C Routine 03/28/2024 11:15 AM CDT LIPID PANEL Routine 03/28/2024 11:15 AM CDT ALBUMIN CREATININE RATIO, URINE Routine 03/28/2024 11:15 AM CDT DIABETIC EYE EXAM Routine 06/23/2023 from Last 3 Months or Most Recently Relevant to Health Maintenance Results * SCAN - RADIOLOGY/IMAGING (07/28/2024) Anatomical Region Laterality Modality Other us Provider Scanning Final Result * (ABNORMAL) eGFR (03/28/2024 11:15 AM CDT) eGFR 47(L) >=60 mL/min/1. 73 m2 Comment: Interpretive Data Reference Interval Normal >/= 90 mL/min/1.73m2 Mildly decreased* 60 - 89 mL/min/1.73m2 Mildly to moderately decreased 45 - 59 mL/min/1.73m2 Moderately to severely decreased 30 - 44 mL/min/1.73m2 Severely decreased 15 - 29 mL/min/1.73m2 Kidney Failure < 15 mL/min/1.73m2 *Relative to young adult level Estimated glomerular filtration rate is determined by the 2020 CKD-EPI equation recommended by the National Kidney Foundation (A Unifying Approach to GFR Estimation: Recommendations of the NKF-ASK Task Force on Reassessing the Inclusion of Race in Diagnosing Kidney Disease, JASN 202). The CKD-EPI equation should not be used for patients with unstable renal function and has not been validated in children and those over 70. Current interpretive data was last reviewed 2021. Blood 03/28/2024 11:1 5 AM CDT 03/28/2024 9:17 PM CDT Matthieu Fuentes MD LAB BLOOD ORDERABLES Fin al Result Performing Organization Address [facility] Co de Phone Number [facility] [address] [facility] [place] [address] * Albumin Creatinine Ratio, Urine (03/28/2024 11:15 AM CDT) Albumin Ur <12.0 mg/L Comment: Interpretive Data No reference range established. Current interpretive data was last revised 2018. Creatinine Ur 8.5 mg/dL [facility] Comment: Interpretive Data No reference range established. Current interpretive data was last revised 2018. Albumin Creatinine Ratio, Ur See Comment 1 - 29 mg/g [facility] Comment:Unable to calculate Urine 03/28/2024 11:1 5 AM CDT 03/28/2024 8:41 PM CDT Matthieu Fuentes MD LAB URINE ORDERABLES Fin al Result Performing Organization Address [facility] de Phone Number [facility] [address] [place] [address] * (ABNORMAL) Hemoglobin A1c (03/28/2024 11:15 AM CDT) Pathologist [facility] Hgb A1C 6.6(H) 4.0 - 5.6 % Estimated Average Glucose 143 mg/dL [facility] Comment: The ADA recommends reporting an estimated Average Glucose (eAG) with all Hemoglobin A1c results using the equation derived from a study of 507 normal and diabetic adults. Minority populations were underrepresented and children were not included. (Diabetes Care 31:8755-5060, 2008). The eAG is not equivalent to a fasting glucose. Blood 03/28/2024 11:1 5 AM CDT 03/28/2024 8:41 PM CDT Matthieu Fuentes MD LAB BLOOD ORDERABLES Fin al Result Performing Organization Address [facility] Co de Phone Number [facility] [address] Department [place] [address] * (ABNORMAL) Lipid panel (03/28/2024 11:15 AM CDT) Cholesterol 121 30 - 199 mg/dL Comment: Interpretive Data Ages < or = 19 years Acceptable: <170 mg/dL Borderline high: 170-199 mg/dL High: >or= 200 mg/dL Ages > or = 20 years Desirable: <200 mg/dL Borderline high: 200-239 mg/dL High: >or= 240 mg/dL Literature References: 1. Expert Panel on Integrated Guidelines for Cardiovascular Health and Risk Reduction in Children and Adolescents. Pediatrics 2011;128:S213 2. NCEP Expert Panel. Circulation 2004;110:227 Current Interpretive Data was last revised on 2018. Triglycerides 151(H) <=149 mg/dL [facility] Comment: Interpretive Data Ages < or = 9 years Acceptable: <75 mg/dL Borderline high: 75-99 mg/dL High: >or= 100 mg/dL Ages 10 to 20 years Acceptable: <90 mg/dL Borderline high: 90-129 mg/dL High: >or= 130 mg/dL Ages > or = 20 years Desirable: <150 mg/dL Borderline high: 150-199 mg/dL High: 200-499 mg/dL Very high: >or= 499 mg/dL Literature References: 1. Expert Panel on Integrated Guidelines for Cardiovascular Health and Risk Reduction in Children and Adolescents. Pediatrics 2011;128:S213 2. NCEP Expert Panel. Circulation 2004;110:227 Current Interpretive Data was last revised on 2018. HDL 43 >=40 mg/dL [facility] Comment: Interpretive Data Ages < or = 19 years Acceptable: >45 mg/dL Borderline low: 40-45 mg/dL Low: <40 mg/dL Ages > or = 20 years Desirable: >or= 60 mg/dL Low: <40 mg/dL Literature References: 1. Expert Panel on Integrated Guidelines for Cardiovascular Health and Risk Reduction in Children and Adolescents. Pediatrics 2011;128:S213 2. NCEP Expert Panel. Circulation 2004;110:227 Current Interpretive Data was last revised on 2018. LDL, calculated 48 <=129 mg/dL [facility] Comment: Interpretive Data Ages < or = 19 years Acceptable: <110 mg/dL Borderline high: 110-129 mg/dL High: >or= 130 mg/dL Ages > or = 20 years Optimal: <100 mg/dL Near optimal: 100-129 mg/dL Borderline high: 130-159 mg/dL High: >160 mg/dL Literature References: 1. Expert Panel on Integrated Guidelines for Cardiovascular Health and Risk Reduction in Children and Adolescents. Pediatrics 2011;128:S213 2. NCEP Expert Panel. Circulation 2004;110:227 Current Interpretive Data was last revised on 2018. Non-HDL Cholesterol 78 mg/dL [facility] Comment: Interpretive Data Ages < or = 19 years Acceptable: <120 mg/dL Borderline high: 120-144 mg/dL High: >145 mg/dL Ages > or = 20 years When triglycerides are >200 mg/dL, Non-HDL cholesterol is a secondary target of therapy with treatment goals that are 30 mg/dL greater than the LDL cholesterol target. Literature References: 1. Expert Panel on Integrated Guidelines for Cardiovascular Health and Risk Reduction in Children and Adolescents. Pediatrics 2011;128:S213 2. NCEP Expert Panel. Circulation 2004;110:227 Current Interpretive Data was last revised on 2018. Chol/HDL ratio 3 [facility] Blood 03/28/2024 11:1 5 AM CDT 03/28/2024 8:40 PM CDT Matthieu Fuentes MD LAB BLOOD ORDERABLES Fin al Result [facility] [address] Department [place] [address] * Diabetic Eye Exam (06/23/2023) Historical Provider HEALTH MAINTENANCE Final Result from Last 3 Months or Most Recently Relevant to Health Maintenance Insurance [facility] [id number] [facility] [id number] Advance Directives For more information, please contact: [phone] Documents on File Type Date Recorded Patient Signs Cleaner Expl anation ADVANCE DIRECTIVE 09/12/2024 ADVANCE DIRECTIVE 05/19/2022 1:48 PM Power of Chemical Recovery Operator-Medical Care Teams Supervisor Multifocal Lens Relationship Specialty Start Date End Date Matthieu Fuentes MD [address] [place] [address] PCP - General Internal Medicine 05/19/22
--- OUTSIDE RECORDS SUMMARY | 2024-10-18 21:22 | XMS_ITS | Referral Summary ---
Author Organization [facility] [address] [facility] Address [address] [place] [address] Care Team Providers Care Childbirth Educator Name Role Phone Matthieu Fuentes MD Primary Care Provider + Encounters Date Type Department Care Team Description 09/14/2024 Telephone [facility] [address] [place] [address] Matthieu Fuentes MD Additional Services Or Orders 09/13/2024 Telephone [facility] [address] [place] [address] Matthieu Fuentes MD Medical Records Request 09/12/2024 1:45 PM STRAIGHTENING MACHINE FEEDER Office Visit [facility] [address] [place] [phone] Matthieu Fuentes MD 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 (HCC) (Primary Dx); Pure hypercholesterolemia ; Essential (primary) hypertension; Recurrent major depressive disorder, in full remission; 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, psychotic disturbance, mood disturbance, or anxiety (HCC); Gait instability; Multiple falls; Lower extremity edema 09/11/2024 Telephone [facility] [address] [place] [address] Matthieu Fuentes MD Forms Request 09/06/2024 Telephone [facility] [address] [place] [address] Matthieu Fuentes MD Medical Question/Miscellaneo us 08/23/2024 Telephone [facility] [address] [place] [address] Matthieu Fuentes MD Confusion 08/04/2024 2:30 PM STRAIGHTENING MACHINE FEEDER Office Visit [facility] [address] [place] [address] Belinda Goldberg PA Laceration of right hand without foreign body, subsequent encounter (Primary Dx); Abrasion of right lower extremity, initial encounter 08/02/2024 Documentation [facility] [address] [place] [address] Rita Pacheco MD 08/02/2024 Telephone [facility] [address] [place] [address] Matthieu Fuentes MD After Hours 07/28/2024 Orders Only [facility] Information Management [address] [place] [address] Scanning, Provider from Last 3 Months Allergies Active Allergy Reactions Criticality Noted Date [...] the skin nightly 4 Active iron ps [id number]-votm c acid (NIFEREX-150 FORTE) 150-25-1 mg-mcg-mg capsule 1 tablet Active acetaminophen (TYLENOL) 500 mg tablet Take 2 tablets (1,000 mg total) by mouth every 6 (six) hours as needed 4 Active losartan (COZAAR) 50 mg tablet Take 1 tablet (50 mg total) by mouth daily Active Active Problems Problem Noted Date Diagnosed Date Multiple falls 09/07/2024 Assessment & Plan (09/12/2024 2:08 PM STRAIGHTENING MACHINE FEEDER): Would benefit from a manual wheelchair. It would help her perform her ADLs. It would decrease her risk of falls. She was able to self propel a manual wheelchair. Hospital bed would allow her to position herself better and get out of bed with less falls. Gait instability 09/07/2024 Assessment & Plan (09/11/2024 7:03 AM STRAIGHTENING MACHINE FEEDER): History of multiple falls. Would benefit from a manual wheelchair. It would help her perform her ADLs. It would decrease her risk of falls. She was able to self propel a manual wheelchair. Right wrist pain 08/04/2024 Laceration of right hand without foreign body Assessment & Plan (08/04/2024 3:48 PM STRAIGHTENING MACHINE FEEDER): Sustained one-week ago. Went to [facility] ED, Steri-Strips were applied. Well healing without signs of infection. Discussed to observe. Steri-Strips will peel off on its own. Abrasion of right leg 08/04/2024 Assessment & Plan (08/04/2024 3:14 PM STRAIGHTENING MACHINE FEEDER): Sustained 3 weeks ago. Looks infected. Will [...] 03/29/2024 Assessment & Plan (09/12/2024 7:41 AM STRAIGHTENING MACHINE FEEDER): Stable on Bumex. Would benefit from a [...] 06/29/2023 Assessment & Plan (06/29/2023 1:43 PM STRAIGHTENING MACHINE FEEDER): Instructed to cut down on caffeine. Will [...] 11/25/2022 Assessment & Plan (09/11/2024 7:03 AM STRAIGHTENING MACHINE FEEDER): Stable on current dose of fluoxetine Assessment & Plan (03/28/2024 1:36 PM CDT): Stable on current dose of fluoxetine Assessment & Plan (12/09/2023 12:23 PM CDT): Stable on current dose of fluoxetine Assessment & Plan (06/28/2023 12:43 PM STRAIGHTENING MACHINE FEEDER): Stable on current dose of fluoxetine Assessment [...] 11/25/2022 Assessment & Plan (09/11/2024 7:03 AM STRAIGHTENING MACHINE FEEDER): Stable. Assessment & Plan (03/28/2024 1:35 PM CDT): Stable. Assessment & Plan (12/09/2023 12:23 PM CDT): Stable. Assessment & Plan (06/28/2023 12:43 PM STRAIGHTENING MACHINE FEEDER): Stable. Assessment & Plan (03/23/2023 3:37 PM CDT): Stable. Assessment & Plan (11/25/2022 2:46 PM CDT): Stable. Will plan on starting donepezil once we get right dose of fluoxetine. Cutaneous candidiasis 08/25/2022 Assessment & Plan (12/09/2023 12:24 PM CDT): Stable with nystatin powder Assessment & Plan (06/29/2023 1:37 PM STRAIGHTENING MACHINE FEEDER): Increase nystatin powder to twice a day. Assessment & Plan (12/21/2022 2:51 PM CDT): Much improved. Continue Nystatin powder Assessment & Plan (11/25/2022 2:49 PM CDT): Continue Nystatin powder three times a day. Will start fluconazole 100 mg 2 tablets the first day then 1 tablet a day for 4 days. Assessment & Plan (08/25/2022 1:53 PM STRAIGHTENING MACHINE FEEDER): Continue Nystatin powder. May try fluconazole once we get bloodwork and confirm LFTs are ok. Right leg pain 08/25/2022 Assessment & Plan (06/29/2023 1:45 PM STRAIGHTENING MACHINE FEEDER): Would start tylenol 500 mg twice a day Assessment & Plan (08/25/2022 1:56 PM STRAIGHTENING MACHINE FEEDER): Possible bursitis vs arthritis. Will possibly try NSAID for renal function is ok. Type 2 DM with diabetic neur opathy affecting both sides of body 01/15/2017 Assessment & Plan (09/11/2024 7:03 AM STRAIGHTENING MACHINE FEEDER): Hemoglobin A1c was improved at last check. Continue Lantus, Farxiga, and glipizide. Assessment & Plan (03/28/2024 1:35 PM CDT): Hemoglobin A1c was improved at last check. Continue Lantus, Farxiga, and glipizide. Assessment & Plan (12/09/2023 12:23 PM CDT): Hemoglobin A1c was improved at last check. Continue Levemir, Farxiga, and glipizide. Assessment & Plan (06/28/2023 12:42 PM STRAIGHTENING MACHINE FEEDER): Hemoglobin A1c was improved at last check. [...] glipizide. Assessment & Plan (08/25/2022 1:55 PM STRAIGHTENING MACHINE FEEDER): HgbA1c was 11 in 05/2022. Unclear if any med changes. Need to obtain current medication list Continue Levemir, Farxiga, and glipizide. Assessment & Plan (05/19/2022 3:00 PM CDT): Last hemoglobin A1c December of 2021 was 9.7. Will continue Levemir and glipizide. Will recheck a hemoglobin A1c. Pure hypercholesterolemia 01/14/2017 Assessment & Plan (09/11/2024 7:03 AM STRAIGHTENING MACHINE FEEDER): Stable on atorvastatin. Assessment & Plan (03/28/2024 1:35 PM CDT): Stable on atorvastatin. Assessment & Plan (12/09/2023 12:23 PM CDT): Stable on atorvastatin. Assessment & Plan (06/28/2023 12:42 PM STRAIGHTENING MACHINE FEEDER): Stress low-cholesterol diet. Awaiting recheck blood work. Assessment & Plan (03/23/2023 3:36 PM CDT): Stress low-cholesterol diet. Awaiting recheck blood work. Assessment & Plan (12/21/2022 2:41 PM CDT): Stress low-cholesterol diet. Recheck fasting lipid profile in 3 months Assessment & Plan (11/23/2022 4:26 PM CDT): LDL slightly elevated. Stress low-cholesterol diet Assessment & Plan (08/24/2022 12:29 PM STRAIGHTENING MACHINE FEEDER): Did not do blood work from last visit. Encouraged to get blood work done. Essential (primary) hypertension 12/03/2015 Assessment & Plan (09/11/2024 7:03 AM STRAIGHTENING MACHINE FEEDER): Stable on amlodipine and losartan Assessment & Plan (03/28/2024 1:35 PM CDT): Stable on amlodipine and losartan Assessment & Plan (12/09/2023 12:22 PM CDT): Stable on amlodipine and losartan Assessment & Plan (06/28/2023 12:42 PM STRAIGHTENING MACHINE FEEDER): Stable on amlodipine and losartan Assessment & Plan (03/23/2023 3:36 PM CDT): Stable on amlodipine and losartan Assessment & Plan (11/23/2022 4:26 PM CDT): Stable on amlodipine and losartan Assessment & Plan (08/24/2022 12:29 PM STRAIGHTENING MACHINE FEEDER): Stable on amlodipine and losartan. Assessment & [...] 05/19/2022 Assessment & Plan (09/11/2024 7:04 AM STRAIGHTENING MACHINE FEEDER): BMI Follow-up includes: exercise counseling. Assessment & Plan (12/09/2023 12:23 PM CDT): BMI Follow-up includes: exercise counseling. Assessment & Plan (06/28/2023 12:42 PM STRAIGHTENING MACHINE FEEDER): BMI Follow-up includes: exercise counseling. Assessment & Plan (03/23/2023 3:36 PM CDT): BMI Follow-up includes: exercise counseling. Assessment & Plan (12/17/2022 1:13 PM CDT): BMI Follow-up includes: exercise counseling. Assessment & Plan (11/23/2022 4:26 PM CDT): BMI Follow-up includes: exercise counseling. Assessment & Plan (08/24/2022 12:30 PM STRAIGHTENING MACHINE FEEDER): BMI Follow-up includes: exercise counseling. Assessment & Plan (05/19/2022 2:27 PM CDT): BMI Follow-up includes: exercise counseling. Stage 3 chronic kidney disease 12/09/2021 05/19/2022 Immunizations Immunization Administration Dates Next Due Influenza, Trivalent, High D ose, Split, Preservative Free, Intramuscular 05/21/2016,06/02/2014 Influenza, Trivalent, IM (MDV) 05/01/2013 Influenza, Unspecified 05/24/2024,2023(Deferred: Patient decision),05/25/2023,12/21/2022(Deferr ed: Patient decision),04/27/2019 Pneumococcal Conjugate PCV 13 12/05/2015 Pneumococcal Polysaccharide PPV23 12/05/2015 Tdap 05/05/2024,11/28/2023,08/28/2013 Tetanus toxoid, adsorbed 01/25/2006 Social History Tobacco Use Types Packs/Day Years [...] on file Legal Sex Female 7:36 PM STRAIGHTENING MACHINE FEEDER Gender Identity Not on file Sexual Orientation Not on file Last Filed Vital Signs Vital Sign Reading Time Taken Comments Blood Pressure 120/68 09/12/2024 1:59 PM STRAIGHTENING MACHINE FEEDER Pulse 56 09/12/2024 1:59 PM STRAIGHTENING MACHINE FEEDER Temperature 36.4 C (97.6 F) 09/12/2024 1:59 PM STRAIGHTENING MACHINE FEEDER Respiratory Rate 18 09/12/2024 1:59 PM STRAIGHTENING MACHINE FEEDER Oxygen Saturation 98% 09/12/2024 1:59 PM STRAIGHTENING MACHINE FEEDER Inhaled Oxygen Concentration - - Weight 94.1 kg (207 lb 8 oz) 03/29/2024 2:43 PM CDT Height 160 cm (5' 3 ) 08/04/2024 2:36 PM STRAIGHTENING MACHINE FEEDER Body Mass Index 36.99 03/29/2024 2:43 PM CDT Plan of Treatment Not on file Procedures Procedure Name Priority Date/Time Associated Diagnosis [...] of Race in Diagnosing Kidney Disease, JASN 2020). The CKD-EPI equation should not be used for patients with unstable renal function and has not been validated in children and those over 70. Current interpretive data was last reviewed 2021. Blood 03/28/2024 11:1 5 AM CDT 03/28/2024 9:17 PM CDT Matthieu Fuentes MD LAB BLOOD ORDERABLES Fin al Result Performing Organization Address [facility] [place] de Phone Number [facility] [address] [place], [place] [id number] * Albumin Creatinine Ratio, Urine (03/28/2024 11:15 AM CDT) Albumin Ur <12.0 mg/L Comment: Interpretive Data No reference range established. Current interpretive data was last revised 2018. Creatinine Ur 8.5 mg/dL [facility] Comment: Interpretive Data No reference range established. Current interpretive data was last revised 2018. Albumin Creatinine Ratio, Ur See Comment 1 - 29 mg/g [facility] Comment:Unable to calculate Urine 03/28/2024 11:1 5 AM CDT 03/28/2024 8:41 PM CDT Matthieu Fuentes MD LAB URINE ORDERABLES Fin al Result Performing Organization Address [facility] Co de Phone Number [facility] [address] Department [employer] [place], [place] [id number] * (ABNORMAL) Hemoglobin A1c (03/28/2024 11:15 AM CDT) Hgb A1C 6.6(H) 4.0 - 5.6 % Estimated Average Glucose 143 mg/dL [facility] Comment: The ADA recommends reporting an estimated Average Glucose (eAG) with all Hemoglobin A1c results using the equation derived from a study of 507 normal and diabetic adults. Minority populations were underrepresented and children were not included. (Diabetes Care 31:9513-9860, 2008). The eAG is not equivalent to a fasting glucose. Blood 03/28/2024 11:1 5 AM CDT 03/28/2024 8:41 PM CDT us Matthieu Fuentes MD LAB BLOOD ORDERABLES Fin al Result [facility] [address] Department [place] [address] * (ABNORMAL) Lipid panel (03/28/2024 11:15 AM [...] revised on 2018. Triglycerides 151(H) <=149 mg/dL [facility] Comment: Interpretive Data Ages < [...] revised on 2018. HDL 43 >=40 mg/dL [facility] Comment: Interpretive Data Ages < or = [...] on 2018. LDL, calculated 48 <=129 mg/dL [facility] Comment: Interpretive Data Ages < or = [...] revised on 2018. Non-HDL Cholesterol 78 mg/dL [facility] Comment: Interpretive Data Ages < or = [...] last revised on 2018. Chol/HDL ratio 3 [facility] Blood 03/28/2024 11:1 5 AM CDT 03/28/2024 8:40 PM CDT Mathtieu Fuentes MD LAB BLOOD ORDERABLES Fin al Result [facility] [address] Department [place] [address] * Diabetic Eye Exam (06/23/2023) us Historical Provider MD HEALTH MAINTENANCE Final Result from Last 3 Months or Most Recently Relevant to Health Maintenance Insurance [facility] [id number] [facility] [id number] Advance Directives For more information, please contact: [phone] Documents on File Type Date Recorded Patient Organic Section Technical Lead Expl anation ADVANCE DIRECTIVE 09/12/2024 ADVANCE DIRECTIVE 05/19/2022 1:48 PM Power of Snowblower Mechanic-Medical Care Teams Childbirth Educator Relationship Specialty Start Date End Date Matthieu Fuentes MD [address] [place] [id number] PCP - General Internal Medicine 05/19/22
--- OUTSIDE RECORDS SUMMARY | 2024-10-18 21:22 | XMS_ITS | Clinical Summary ---
Author Organization [facility] Address [address] [place] [address] Care Team Providers Care Steam Flattener Name Role Phone Matthieu Fuentes MD Primary Care Provider [phone] Allergies No known active allergies Medications No known medications Immunizations Name Administration Dates Next Due Tdap [...] 58 05/05/2024 12:33 PM CDT Temperature 36.6 C (97.9 F) 05/05/2024 6:39 AM CDT Respiratory Rate 15 05/05/2024 12:33 PM CDT [...] Immunization or 60+ Years (1 - 1-dose 75+ series) 2014 Pneumococcal Vaccine: 65+ Years (2 of 2 - PPSV23 or PCV20) 12/04/2016 12/05/2015 COVID-19 Vaccine (1 - season) 2024 Influenza Adult (#1) 2024 05/25/2023, 04/27/2019, 05/21/2016, Additional history exists DTaP, Tdap and Td Vaccines (4 - Td or Tdap) 05/05/2034 05/05/2024, 11/28/2023, 08/28/2013, Additional history exists Meningococcal B Vaccine Aged Out No l onger eligible based on patient's age to complete this topic Meningococcal Vaccine Aged Out No samia marcia eligible based on patient's age to complete this topic RSV Immunizations Under 20 Months Aged Out No longer eligible based on patient's age to complete this [place] [address] [employer] [facility] Care Teams Steam Flattener Relationship Specialty Start Date End Date Matthieu Fuentes MD [address] [place] [address] PCP - General INTERNAL MEDICINE 05/05/24
--- NOTE | 2024-10-18 21:37 | ED_ITS ---
HPI - General Adult General Chief complaint: Fall Stated complaint: fall Time Seen by Provider: 10/18/24 21:17 History of Present Illness HPI narrative: Patient is 84-year-old female who presents emergency department with chief complaint of fall from bed. Patient apparently fell out of her bed reports that she has pain in her left hip left hand and has a skin tear on her right elbow. Patient states she has small bruise on her forehead patient has prior history of Alzheimer's type dementia Related Data Home Medications ?Medication ?Instructions ?Recorded ?Confirmed ?Last Taken ?Type dapagliflozin propanediol 10 mg 10 mg PO DAILY 05/12/22 11/24/23 1 Day Ago History tablet (Farxiga) ~10/08/23 furosemide 20 mg tablet (Lasix) 20 mg PO DAILY 05/12/22 11/24/23 1 Day Ago History ~10/08/23 glipizide 2.5 mg tablet, extended 2.5 mg PO DAILY 05/12/22 11/24/23 1 Day Ago History release 24 hr ~10/08/23 losartan 50 mg tablet 50 mg PO DAILY 05/12/22 11/24/23 1 Day Ago History ~10/08/23 acetaminophen 500 mg tablet 1,000 mg PO Q6H PRN Pain 10/09/23 11/24/23 Unknown History (Acetaminophen Extra Strength) amlodipine 10 mg tablet 10 mg PO DAILY 10/09/23 11/24/23 1 Day Ago History ~10/08/23 atorvastatin 10 mg tablet 10 mg PO DAILY 10/09/23 11/24/23 1 Day Ago History ~10/08/23 fluoxetine 20 mg capsule 20 mg PO DAILY 10/09/23 11/24/23 1 Day Ago History ~10/08/23 Allergies Allergy/AdvReac Type Severity Reaction Status Date / Time Penicillins Allergy Unknown Verified 07/28/24 23:36 Review of Systems Review of Systems: A 10 system review of systems was completed on the patient and is negative except for what is stated in the HPI. Nursing and ancillary documentation was reviewed. [facility] Past Medical History Medical History Type 2 diabetes mellitus Depression Hyperlipidemia Peripheral neuropathy Hypertension Surgical History Surgical History History of tonsillectomy Family History Family History Other Cardiovascular disease Social History Social History Smoking status: Never smoker Alcohol intake: never Substance use: never Do You Feel Safe in your Home?: Yes Lack of Transportation: No Lack of Food: Never True Current Housing: I Have Housing Concerned About Future Housing: No Difficulty Paying Gas/Electric Bills: No Difficulty Paying for Meds: No Currently Unemployed: No Education: Master's Degree or Higher Difficulty w/ Childcare or Family Care: No Additional living arrangements comments: [place] Spiritual care concerns: No Exam Narrative: GENERAL: Well-appearing, well-nourished, and in no acute distress. HEAD: Normocephalic, there is an abrasion present to forehead. EYES: PERRLA and EOMI. ENT: Nares clear, no rhinorrhea or epistaxis. Mucous membranes moist. NECK: Supple. CHEST: Clear to auscultation. No respiratory distress. HEART: Regular rate and rhythm. No murmur heard. Normal peripheral pulses. ABDOMEN: Soft, nontender, nondistended, normal active bowel sounds. EXTREMITIES: Normal range of motion there is a skin tear present to the right forearm at the area of the elbow. There is a bruise present to the dorsum of the left hand. No edema. SKIN: Warm, dry, no rash. NEURO: No focal deficits. Alert and oriented x2. PSYCH: Normal mood and affect. Course Vital Signs Vital signs: Vital Signs Temperature 36.8 C 10/18/24 21:08 Pulse Rate 71 10/18/24 21:08 Respiratory Rate 15 10/18/24 21:08 Blood Pressure 135/44 L 10/18/24 21:08 Pulse Oximetry 100 10/18/24 21:08 Oxygen Delivery Room Air 10/18/24 21:08 Temperature 36.8 C 10/18/24 21:08 Pulse Rate 68 10/18/24 22:26 Respiratory Rate 20 10/18/24 22:26 Blood Pressure 125/50 L 10/18/24 22:26 Pulse Oximetry 98 10/18/24 22:26 Oxygen Delivery Room Air 10/18/24 21:08 Medical Decision Making Vital Signs Vital Signs: Vital Signs Temperature 36.8 C 10/18/24 21:08 Pulse Rate 71 10/18/24 21:08 Respiratory Rate 15 10/18/24 21:08 Blood Pressure 135/44 L 10/18/24 21:08 Pulse Oximetry 100 10/18/24 21:08 Oxygen Delivery Room Air 10/18/24 21:08 Temperature 36.8 C 10/18/24 21:08 Pulse Rate 68 10/18/24 22:26 Respiratory Rate 20 10/18/24 22:26 Blood Pressure 125/50 L 10/18/24 22:26 Pulse Oximetry 98 10/18/24 22:26 Oxygen Delivery Room Air 10/18/24 21:08 Discharge Plan Discharge Clinical Impression: Skin tear of right upper extremity, Fall from bed, Head injury, Contusion of left hand Patient Disposition: [place] Snf/Asst Living Condition: Stable Instructions: Antibiotic Form, Concussion (ED), Head Injury (ED), Skin Avulsion (ED), Abrasion (ED) Patient Language: Tamazight Prescriptions: No Action losartan 50 mg Tablet 50 mg PO DAILY glipizide 2.5 mg Tablet Extended Release 24hr 2.5 mg PO DAILY furosemide [Lasix] 20 mg Tablet 20 mg PO DAILY dapagliflozin propanediol [Farxiga] 10 mg Tablet 10 mg PO DAILY acetaminophen 500 mg capsule 1,000 mg PO Q6H PRN (Reason: pain) Qty: 20 0RF atorvastatin 10 mg tablet 10 mg PO DAILY acetaminophen [Acetaminophen Extra Strength] 500 mg Tablet 1,000 mg PO Q6H PRN (Reason: Pain) amlodipine 10 mg tablet 10 mg PO DAILY fluoxetine 20 mg capsule 20 mg PO DAILY tamsulosin [Flomax] 0.4 mg capsule 0.4 mg PO DAILY Qty: 10 0RF doxycycline hyclate 100 mg capsule 100 mg PO BID 7 Days Qty: 14 0RF Follow-up/Referrals: Gina,Matthieu Clark MD [Primary Care Provider] - Time of Disposition: 23:20
[2024-10-18 22:26] VITALS: BP 125/50; PULSE 68; RESP 20; O2SAT 98
[2024-10-18 23:49] VITALS: BP 101/60; PULSE 65; RESP 17; O2SAT 98
== END 2024-10-19 00:14 ==
PROVIDERS: Emergency Provider Emergency Medicine; PCP Internal Medicine
DX: S51.011A Laceration without foreign body of right elbow, initial encounter (principal); S60.222A Contusion of left hand, initial encounter; S00.83XA Contusion of other part of head, initial encounter; G30.9 Alzheimer's disease, unspecified; F02.80 Dementia in other diseases classified elsewhere, unspecified severity, without behavioral disturbance, psychotic disturbance, mood disturbance, and anxiety; I10 Essential (primary) hypertension; E11.42 Type 2 diabetes mellitus with diabetic polyneuropathy; E78.5 Hyperlipidemia, unspecified; F32.A Depression, unspecified; Z79.84 Long term (current) use of oral hypoglycemic drugs; Z79.899 Other long term (current) drug therapy; W06.XXXA Fall from bed, initial encounter; G95.89 Other specified diseases of spinal cord; M47.816 Spondylosis without myelopathy or radiculopathy, lumbar region
CPT/HCPCS: 70450; 72125; 73080; 73130; 73502; 99284